=== PATIENT | male | born 1950 | race Caucasian/White ===

== ENCOUNTER 2019-12-24 21:47 | Inpatient (IN) | payer MEDICARE, OTHER ==
[~2019-12-24] VITALS: Ht 188 cm; Wt 96.6 kg
[~2019-12-24 21:47] MED LIST: AMLO10 PO; ASPI81CH PO; ATOR10 PO; BETA.1TL; CALCIUM CARBONATE; CLOP75 PO; COMBIVENT RESPIM4 GM INH; DIAZ2 PO; DILT300; DIPASPER PO; DOCU100 PO; ENAL20 PO; FISH1000 PO; FLUO10 PO; GLIP10; GLIP5 PO; HYDCHL25 PO; HYDCHL50; HYDCHL50 PO; INSLI100I SC; INSN100I; INSULANPEN SQ; LAMI150; LAMIVUDINE PO; LAVAP17G; MAGGLU250; MECL25 PO; METF500C PO; METF850; METO10 PO; METO50; METO50ER PO; MORP30; MORP30 PO; NITR.6SL PO; OXYB5 PO; OXYC5; OXYC5 PO; Omeprazole20 M1 PO; POTA8; POTCHL20ER PO; RAMI5; SAXA2.5T PO; SENN187 PO; SIMV10 PO; SIMV20 PO; TAMS.4ER PO; TRAZ50; [UNRECOGNIZED DRUG - CODE] PO; [UNRECOGNIZED DRUG - CODE] PO
[2019-12-24 22:13] LABS: BASOPHILS ABSOLUTE AUTO 0.08 K/mm3 (0.00-0.23); BASOPHILS PERCENT AUTO 1 % (0-2); EOSINOPHILS ABSOLUTE AUTO 0.17 K/mm3 (0.00-0.68); EOSINOPHILS PERCENT AUTO 1 % (0-6); Hematocrit 39.3 % (37.0-53.0); Hemoglobin 12.4 g/dL (13.5-17.5); IMMATURE GRAN ABSOLUTE AUTO 0.06 K/mm3 (0.00-0.10); IMMATURE GRAN PERCENT AUTO 0 % (0-1); LYMPHOCYTES ABSOLUTE AUTO 1.71 K/mm3 (0.84-5.20); LYMPHOCYTES PERCENT AUTO 11 % (21-46); MONOCYTES PERCENT AUTO 9 % (4-13); Mean Corpuscular HGB 26.7 pg (26.0-34.0); Mean Corpuscular HGB Conc 31.6 g/dL (31.5-36.5); Mean Corpuscular Volume 85 fL (80-100); Mean Platelet Volume 10.9 fL (9.1-12.4); NEUTROPHILS ABSOLUTE AUTO 11.66 K/mm3 (1.96-9.15); NEUTROPHILS PERCENT AUTO 77 % (41-73); Platelet Count 251 K/mm3 (150-400); RDW Coefficient Variation 14.6 % (11.7-14.2); RDW Standard Deviation 45.2 fL (35.1-46.3); Red Blood Cell Count 4.65 M/mm3 (4.30-5.90); White Blood Cell Count 15.08 K/mm3 (4.00-11.30)
[2019-12-24 22:30] LABS: Alanine Aminotransfer (ALT/SGP 48 U/L (12-78); Albumin, Blood 2.8 g/dL (3.4-5.0); Albumin/Globulin Ratio 0.7 (0.8-1.8); Alk Phos 90 U/L (50-136); Anion Gap 5 mmol/L (6-16); Aspartate Aminotrans (AST/SGOT 14 U/L (12-37); Bilirubin, Total 0.3 mg/dL (0.1-1.0); Blood Urea Nitrogen 21 mg/dL (8-24); Bun/Creatinine Ratio 27.1 (12.0-20.0); CO2, Blood 33 mmol/L (21-32); Calcium, Blood 8.8 mg/dL (8.5-10.1); Chloride, Blood 99 mmol/L (98-108); Creatinine, Blood 0.78 mg/dL (0.60-1.20); Glomerular Filtration Rate >60 (60-); Glucose, Blood 281 mg/dL (70-99); Potassium, Blood 3.9 mmol/L (3.5-5.5); Sodium, Blood 137 mmol/L (136-145); Total Protein, Blood 6.8 g/dL (6.4-8.2); Troponin I 0.044 ng/mL (0.000-0.040)
[2019-12-24] MEDS ORDERED: ALOGLIPTIN25 MG PO (23:33)
[2019-12-24] MEDS ORDERED: BUDE10.22 INH (23:34)
[2019-12-24] MEDS ORDERED: [UNRECOGNIZED DRUG - OTHER] TOP (23:35)
[2019-12-24] MEDS ORDERED: DOC250 PO (23:36)
[2019-12-25 07:01] LABS: Adenovirus Not Detected (NOT DETECT); Bordetella pertussis Not Detected (NOT DETECT); Chlamydophila pneumoniae Not Detected (NOT DETECT); Coronavirus 229E Not Detected (NOT DETECT); Coronavirus HKU1 Not Detected (NOT DETECT); Coronavirus NL63 Not Detected (NOT DETECT); Coronavirus OC43 Not Detected (NOT DETECT); Human Metapneumovirus Not Detected (NOT DETECT); Human Rhinovirus/Enterovirus Not Detected (NOT DETECT); Influenza A Not Detected (NOT DETECT); Influenza A/2009-H1 Not Detected (NOT DETECT); Influenza A/H1 Not Detected (NOT DETECT); Influenza A/H3 Not Detected (NOT DETECT); Influenza B Not Detected (NOT DETECT); Mycoplasma pneumoniae Not Detected (NOT DETECT); Parainfluenza Virus 1 Not Detected (NOT DETECT); Parainfluenza Virus 2 Not Detected (NOT DETECT); Parainfluenza Virus 3 Not Detected (NOT DETECT); Parainfluenza Virus 4 Not Detected (NOT DETECT); Respiratory Syncytial Virus Not Detected (NOT DETECT)
--- NOTE | 2019-12-25 07:20 | NUR ---
[facility] SHIFT SUMMARY PT ADMITTED THIS NIGHT FOR CP WITH TROP OF 0.044. HE IS AAOX4, RESP E/U, VSS, DENIES DISCOMFROT OR PAIN. ON TELE SR RATE 74 ON LAST CHECK. COMES TO ROOM WITH HIM AND IS HELPFUL WITH HISTORY. HAS HOME CPAP WITH HIM AND USES 3.5 O2 BLEED AT [facility]. RA DUR DAY. ON CONT PULSE OX AND SATS ABOVE 90. PT HAS HAD NO COMPLAINTS OF PAIN OR DISCOMFORT SINCE ARRIVAL. HE IS PLEASANT AND COOPERATIVE. REPORT TO ONCOMING RN.
[2019-12-25] MEDS ORDERED: Excedrin Extra1 EACH PO (10:04)
--- NOTE | 2019-12-25 17:53 | NUR ---
SHIFT SUMMARY PT INDEPENDENT IN ROOM. S.O. AT BEDSIDE MOST OF DAY. BROUGHT IN HIS MEDS FROM HOME AND SENT TO PHARMACY FOR VERIFICATION. OXYCODONE GIVEN FOR BACK PAIN. DR. MARIO IN TO SEE PT WITH ORDERS TO BE NPO AFTER MIDNOC FOR ANGIOGRAM IN A.M. NO CHEST PAIN THROUGHOUT DAY.
--- NOTE | 2019-12-25 17:57 | NUR ---
PT CONSENT FOR STUDENT NURSE TO TREAT @1500 FOR THE EVENING.
--- NOTE | 2019-12-26 05:02 | NUR ---
WILD LIFE PHOTOGRAPHER SUMMARY PT A/O X4. DENIES CHEST PAIN, SOB, NAUSEA. PT HAS BEEN HAVING PAIN IN LOWER BACK AND LEGS WHICH IS CHRONIC. MEDICATED ONCE THIS SHIFT FOR PAIN. I OFFERED PT A HEATING PAD TO WHICH PT REFUSED. REPOSITIONING HAS HELPED SOME. PT TOOK A SHOWER LAST NIGHT. SLEPT A DECENT AMOUNT OVER THE NIGHT. VSS, CALL PARKER WITHIN REACH. BEEN NPO SINCE MIDNIGHT FOR PROCEDURE IN AM.
[2019-12-26 05:47] LABS: Hematocrit 36.6 % (37.0-53.0); Hemoglobin 11.6 g/dL (13.5-17.5); Mean Corpuscular HGB 26.5 pg (26.0-34.0); Mean Corpuscular HGB Conc 31.7 g/dL (31.5-36.5); Mean Corpuscular Volume 84 fL (80-100); Mean Platelet Volume 11.4 fL (9.1-12.4); Platelet Count 223 K/mm3 (150-400); RDW Coefficient Variation 14.7 % (11.7-14.2); RDW Standard Deviation 44.7 fL (35.1-46.3); Red Blood Cell Count 4.37 M/mm3 (4.30-5.90); White Blood Cell Count 15.96 K/mm3 (4.00-11.30)
[2019-12-26 06:10] LABS: Albumin, Blood 2.6 g/dL (3.4-5.0); Anion Gap 5 mmol/L (6-16); Blood Urea Nitrogen 39 mg/dL (8-24); Bun/Creatinine Ratio 42.9 (12.0-20.0); CHOL/HDL RATIO 5.6; CO2, Blood 32 mmol/L (21-32); Calcium, Blood 8.7 mg/dL (8.5-10.1); Chloride, Blood 101 mmol/L (98-108); Cholesterol 135 mg/dL (50-200); Creatinine, Blood 0.91 mg/dL (0.60-1.20); Glomerular Filtration Rate >60 (60-); Glucose, Blood 195 mg/dL (70-99); HDL Cholesterol 24 mg/dL (>39); LDL/HDL RATIO 3.2; Low Density Lipoprotein Chol 76 mg/dL (0-110); Phosphorus, Blood 4.1 mg/dL (2.5-4.9); Sodium, Blood 138 mmol/L (136-145); Triglycerides 176 mg/dL (30-160); Troponin I 0.065 ng/mL (0.000-0.040); Very Low Density Lipoprot Chol 35 mg/dL (6-32)
--- NOTE | 2019-12-26 06:22 | NUR ---
INCIDENT MANAGER REPORT PT ARRIVED TO UNIT VIA WHEELCHAIR FROM ER AT 2109. PT A/O X4. STANDBY ASSIST TO BATHROOM. PT DENIED PAIN, NAUSEA, SOB. HE WAS ORIENTED TO STAFF AND ROOM. PT HAS AN OPEN WOUND ON HIS RIGHT FOOT NEXT TO HIS BIG TOE. HE SEES THE WOUND CLINIC FOR THIS. HE HAD A GAUZE DRESSING OVER THE AREA. WHEN I TOOK A PICTURE OF IT, PT REQUESTED TO HAVE IT CHANGED. MEPLIEX APPLIED TO WOUND. REFER TO CHART FOR PICTURES. EDEMA IN BLE. DR. ALEXANDER SAW PT THIS MORNING AT 0515. ORDER TO BLADDER SCAN PT. BLADDER SCAN OF 0ML, THIS WAS DONE TWICE. PT HAD JUST VOIDED 200 ML PRIOR TO BLADDER SCAN. PT HAS NO PHYCHIATRIC HX OTHER THAN ANXIETY HERE AND THERE. STAFF AND MYSELF HAVE NOTICED PT TALKS TO HIMSELF IN A VERY HARSH MANNER. HE HAS A FULL ON CONVERSTION WITH HIMSELF AND SOME EXAMPLES ARE "WHY AM I RECIEVING LASIX WHEN THEY DON'T WORK" "WHY DID I GET INTO THE HOSPITAL AGAIN" "JUST BE A GOOD PAITENT" HE'S SAYING THESE IF THERE WAS ANOTHER PERSON IN HIS ROOM. EACH TIME STAFF IS OUT OF THE ROOM, HE SEEMS LIKE HE HAS UNPLEASANT CONVERSATIONS WITH HIMSELF AND PUTTING HIMSELF DOWN. I ASKED IF HE HAD ANY PLANS TO HURT HIMSELF. HE DENIES HAVING THOUGHT OF HURTING HIMSELF AND OTHER PEOPLE AND HE DENIED EVER HAVING THOUGHTS OF THIS. I NOTIFIED SHELL FITCH RN WELL NURSING MECHANICAL ENGINEERING PROFESSOR, JOSY MASON. JOSY TALKED TO THE PT WHO IS WELL AWARE HE TALKS TO HIMSELF.
--- NOTE | 2019-12-26 13:19 | NUR ---
PT ARRIVED TO PCU 2 VIA WHEELCHAIR, REPORT WAS GIVEN BY KELSEY COBOS, FAMILY AT BEDSIDE, V.S. STABLE, TR BAND IS CLEAR, NO INTERVENTION WAS DONE, CALL LIGHT IN REACH, MAY NEED BYPASS.
--- NOTE | 2019-12-26 18:33 | NUR ---
PT HAS TR BAND OFF WITH ARM BOARD IN PLACE. NO BLEEDING AT ALL. SITE IS CLEAR, PT IS BEING COBRA TRANSFERED TO [facility], CALLED REPORT TO JAVID, HE IS LEAVING AT THIS TIME VIA [employer], FAMILY HAS HIS BELONGINGS.
== END 2019-12-26 18:30 | disposition short-term general hospital (02) | DRG 286 ==
LOC: ER 21:47 → MEDS 21:48 → PCU 12-26 13:25
PROVIDERS: Emergency Medicine; Internal Medicine; ADMIT Family Medicine
PROC: B2111ZZ Fluoroscopy of Multiple Coronary Arteries using Low Osmolar Contrast (ICD-10-PCS; principal; 2019-12-26)
DX: I11.0 Hypertensive heart disease with heart failure (principal); J96.01 Acute respiratory failure with hypoxia; I50.21 Acute systolic (congestive) heart failure; T82.855A Stenosis of coronary artery stent, initial encounter; Z99.81 Dependence on supplemental oxygen; I25.2 Old myocardial infarction; Z79.82 Long term (current) use of aspirin; Z79.84 Long term (current) use of oral hypoglycemic drugs; I25.10 Atherosclerotic heart disease of native coronary artery without angina pectoris; E11.40 Type 2 diabetes mellitus with diabetic neuropathy, unspecified; G47.33 Obstructive sleep apnea (adult) (pediatric); E78.5 Hyperlipidemia, unspecified; N40.0 Benign prostatic hyperplasia without lower urinary tract symptoms; Z88.8 Allergy status to other drugs, medicaments and biological substances; Z87.891 Personal history of nicotine dependence
CPT/HCPCS: 0099U; 36415; 70450; 71046; 80053; 80061; 80069; 82947; 83036; 83690; 83880; 84484; 85025; 85027; 85347; 85730; 93005; 93010; 93306; 93458; 94640; 94760; 94762; 96372; 96374; 96375; 96376; 99152; 99153; 99285-25; A9270; C1769; C1894; G0378; J0360; J1100; J1200; J1644; J1650; J1720; J1940; J2250; J2930; J3010; J7030; Q9967

== ENCOUNTER 2021-02-14 13:06 | Inpatient (IN) | payer OTHER, MEDICARE ==
[~2021-02-14] VITALS: Ht 182.9 cm; Wt 117.0 kg
[~2021-02-14 13:06] MED LIST changes: +ALOGLIPTIN25 MG PO; -ATOR10 PO; -COMBIVENT RESPIM4 GM INH; -ENAL20 PO; -GLIP5 PO; -METF500C PO; -METO50ER PO; -OXYC5 PO; -Omeprazole20 M1 PO; -TAMS.4ER PO; +[UNRECOGNIZED DRUG - OTHER] TOP
[2021-02-14 13:29] LABS: BASOPHILS ABSOLUTE AUTO 0.12 K/mm3 (0.00-0.23); BASOPHILS PERCENT AUTO 1 % (0-2); EOSINOPHILS ABSOLUTE AUTO 0.24 K/mm3 (0.00-0.68); EOSINOPHILS PERCENT AUTO 2 % (0-6); Hematocrit 41.4 % (37.0-53.0); IMMATURE GRAN ABSOLUTE AUTO 0.12 K/mm3 (0.00-0.10); IMMATURE GRAN PERCENT AUTO 1 % (0-1); LYMPHOCYTES ABSOLUTE AUTO 2.42 K/mm3 (0.84-5.20); LYMPHOCYTES PERCENT AUTO 18 % (21-46); MONOCYTES ABSOLUTE AUTO 0.86 K/mm3 (0.16-1.47); MONOCYTES PERCENT AUTO 7 % (4-13); Mean Corpuscular HGB 22.7 pg (26.0-34.0); Mean Corpuscular Volume 78 fL (80-100); Mean Platelet Volume 10.7 fL (9.1-12.4); NEUTROPHILS ABSOLUTE AUTO 9.36 K/mm3 (1.96-9.15); NEUTROPHILS PERCENT AUTO 71 % (41-73); Platelet Count 355 K/mm3 (150-400); RDW Coefficient Variation 19.3 % (11.7-14.2); RDW Standard Deviation 53.1 fL (35.1-46.3); Red Blood Cell Count 5.29 M/mm3 (4.30-5.90); White Blood Cell Count 13.12 K/mm3 (4.00-11.30)
[2021-02-14 13:44] LABS: PO2 Arterial 368 mmHg (80-100)
[2021-02-14 13:45] LABS: Alanine Aminotransfer (ALT/SGP 47 U/L (12-78); Albumin, Blood 2.6 g/dL (3.4-5.0); Albumin/Globulin Ratio 0.6 (0.8-1.8); Alk Phos 81 U/L (50-136); Anion Gap 5 mmol/L (6-16); Aspartate Aminotrans (AST/SGOT 36 U/L (12-37); Bilirubin, Total 0.2 mg/dL (0.1-1.0); Blood Urea Nitrogen 24 mg/dL (8-24); Bun/Creatinine Ratio 27.2 (12.0-20.0); CO2, Blood 31 mmol/L (21-32); Calcium, Blood 8.2 mg/dL (8.5-10.1); Chloride, Blood 104 mmol/L (98-108); Creatinine, Blood 0.88 mg/dL (0.60-1.20); Globulin, Blood 4.5 g/dL (2.2-4.0); Glomerular Filtration Rate >60 (60-); Glucose, Blood 311 mg/dL (70-99); Potassium, Blood 4.3 mmol/L (3.5-5.5); Sodium, Blood 140 mmol/L (136-145); Total Protein, Blood 7.1 g/dL (6.4-8.2); Troponin I 0.032 ng/mL (0.000-0.040)
--- NOTE | 2021-02-14 13:51 | NUR ---
Patient's son, Liang, is ER consult and is going through many emotions and sweating significantly. Liang has trouble staying focused and is repeating himself often. He states that he is homeless and living in his car and also talks about his family unit complications. He talks about wanting to reach a neon sign installer at a yarsanism that he has not been to in quite sometime. He is hoping that neon sign installer will help him with housing and also come to the hospital and pray for his dad. I normalize patient's struggle to deal with his father's medical situation and provide pastoral drapery counselor and prayer. Liang responds well and shows signs of reduced stress. I will continue to remain available to patient and family.
[2021-02-14] MEDS ORDERED: AMLO10 PO (13:56)
[2021-02-14] MEDS ORDERED: COMBIVENT RESPIM4 G1 INH (13:57)
[2021-02-14] MEDS ORDERED: ALPROSTADIL 20 MCG XX (13:58)
[2021-02-14] MEDS ORDERED: SYMBICORT 80-10.2 GM INH (13:59)
[2021-02-14] MEDS ORDERED: ATOR40TA PO (13:59)
[2021-02-14] MEDS ORDERED: ASPIR 8181 M1 PO (14:00)
[2021-02-14] MEDS ORDERED: DOC250 PO (14:01)
[2021-02-14] MEDS ORDERED: CLOP75 PO (14:01)
[2021-02-14] MEDS ORDERED: CALCIPOTRIENE60 G1 TOP (14:02)
[2021-02-14] MEDS ORDERED: Enalapril Malea20 MG PO (14:03)
[2021-02-14] MEDS ORDERED: GLIP10 PO (14:04)
[2021-02-14] MEDS ORDERED: BASAGLAR K100 UNIT/1 SC (14:05)
[2021-02-14] MEDS ORDERED: METO50ER PO (14:06)
[2021-02-14] MEDS ORDERED: Omeprazole20 M1 PO (14:07)
[2021-02-14] MEDS ORDERED: GLUCOPHAGE1000 M1 PO (14:07)
[2021-02-14] MEDS ORDERED: OXYC5 PO (14:08)
[2021-02-14] MEDS ORDERED: TAMS.4ER PO (14:09)
[2021-02-14 14:10] LABS: Calcium, Ionized (POC) 1.03 mmol/L (1.10-1.46); Chloride (POC) 97 mmol/L (98-108); Glucose (ISTAT POC) 325 mg/dL (70-99); Hemoglobin (POC) 14.6 g/dL (13.5-17.5); Potassium (POC) 4.3 mmol/L (3.5-5.5); Sodium (POC) 140 mmol/L (135-148); Total CO2 (POC) 35 mmol/L (21-32)
[2021-02-14] MEDS ORDERED: VEMLIDY25 MG PO (14:10)
[2021-02-14] MEDS ORDERED: LATA.005SO BOTHEYES (14:11)
[2021-02-14 14:13] LABS: Influenza A, PCR NEGATIVE (NEGATIVE); Influenza B, PCR NEGATIVE (NEGATIVE); Resp Syncytial Virus, PCR NEGATIVE (NEGATIVE); SARS-Cov-2 (COVID-19) PCR, MMC NEGATIVE (NEGATIVE)
[2021-02-14] MEDS ORDERED: NICODERM CQ1 EAC1 TD (14:14)
[2021-02-14] MEDS ORDERED: Fluocinonide15 GM TOP (14:17)
[2021-02-14] MEDS ORDERED: Glucagon Emergen1 MG IM (14:18)
[2021-02-14] MEDS ORDERED: GLUCOSE4 GM PO (14:19)
[2021-02-14 14:33] LABS: Source, Urine Catheter
[2021-02-14 14:58] LABS: Appearance, Urine Hazy (Clear); Bilirubin, Urine Neg (Neg); Blood, Urine 3+ (Neg); Color, Urine Yellow (P-Yellow); Glucose Qualitative, Urine 4+ (Neg); Ketones, Urine Neg (Neg); Leukocyte Esterase, Urine Neg (Neg); Nitrite, Urine Neg (Neg); Protein, Urine 4+ (Neg); Urobilinogen, Urine NORM (Normal)
[2021-02-14 15:07] LABS: Bacteria Many /hpf; Squamous Epithelial Cells Few /hpf (Few)
--- NOTE | 2021-02-14 16:30 | NUR ---
INITIAL ASSESSMENT PATIENT ARRIVED TO ICU FROM ER AT 1550. PATIENT INTUBATED AND ON SOME SEDATION. PATIENT ANXIOUS BUT ABLE TO FOLLOW SOME SIMPLE COMMANDS. SEDATION INCREASED FOR PATIENT COMFORT. PATIENT AFEBRILE. PATIENT ABLE TO MOVE ALL EXTREMITIES. LUNG SOUNDS COARSE THROUGHOUT. PATIENT ON VENT SETTINGS OF AC 20, TV 550, PEEP 5 AND 40% FIO2. THICK, SINGH SECRETIONS BEING SUCTIONED FROM ETT. PATIENT IN SR, HR 60S TO 70S. SBP 80S TO 120S. DATE OF LAST BM UNKNOWN. PATIENT NPO. OG TO LIS. BOWEL SOUNDS HYPOACTIVE. TEMP PICHARDO IN PLACE DRAINING YELLOW COLORED URINE. TIP OF L POINTER FINGER MISSING. SCATTERED TATTOOS AND SCARS NOTED T/O BODY. FACE FLUSHED. PATIENT APPEARS COMFORTABLE AT THIS TIME. BED LOW, CALL LIGHT IN REACH. SON AT BEDSIDE. WILL CONTINUE TO MONITOR PATIENT FREQUENTLY THROUGHOUT SHIFT.
[2021-02-14 17:34] LABS: U Amphetamine Screen Not Detected; U Barbituate Screen Not Detected; U Benzodiazapine Screen Not Detected; U Buprenorphine Screen Not Detected; U Cannabinoids Screen Not Detected; U Cocaine Screen Not Detected; U Methadone Screen Not Detected; U Methamphetamine Screen Not Detected; U Opiates Screen Not Detected; U Oxycodone Screen DETECTED; U Phencyclidine Screen Not Detected; U Propoxyphene Screen Not Detected
[2021-02-14 17:41] LABS: PCO2 Arterial 45.7 mmHg (35-45); PO2 Arterial 72.6 mmHg (80-100); pH Blood Arterial 7.43 (7.35-7.45)
--- NOTE | 2021-02-14 19:20 | NUR ---
SHIFT SUMMARY PATIENT REMAINED AFEBRILE. PATIENT REMAINED RESTING WELL ON PROPOFOL AT 25 MCG/ KG/ MINUTE. AC DECREASED DOWN FROM 20 TO 16. VITAL SIGNS REMAINED STABLE. NO BM THIS SHIFT. 90 MLS OF YELLOW COLORED URINE OUT FROM PICHARDO. NS AT 75 MLS/ HOUR. BLOOD SUGAR OF 161. NO OTHER ACUTE CHANGES SINCE INITIAL SHIFT ASSESSMENT. PATIENT APPEARS COMFORTABLE AT THIS TIME. REPORT HAS BEEN GIVEN TO ASSUMING RN HYPERBARIC NURSE.
--- NOTE | 2021-02-14 19:40 | NUR ---
ASSUMPTION OF CARE RECEIVED REPORT FROM MIREYA COBOS AT 1910. ASSUMED CARE OF PATIENT. PATIENT INTUBATED AND SEDATED. VENT SETTINGS AC 16/550/5/35%, SATS ABOVE 95%. LUNGS SOUNDS DIMINISHED THROUGHOUT, NO SECRETIONS AT THIS TIME. PROPOFOL AT 25MCG/KG WITH SAS OF 3. NS AT 75ML/HR, INFUSING VIA PERIPHERAL IV IN RUE. PICHARDO CATHETER PATENT AND DRAINING CLEAR, YELLOW URINE. OG TO LIS WITH LIGHT GREEN DRAINAGE. WILL REVIEW ORDERS AND TREAT PRESCRIBED.
--- NOTE | 2021-02-15 | NUR ---
REASSESSMENT NO CHANGES FROM PREVIOUS ASSESSMENT. VENT SETTINGS UNCHANGES WITH FIO2 AT 35% AND SATS ABOVE 95%. VITALS REMAIN STABLE. PROPOFOL INCREASED TO 30MCG/KG DURING BATH FOR AGITATION. CBG RESULTED AT 54, DEXTROSE GIVEN. WILL MONITOR AND RE-CHECK. URINE OUTPUT AT 30CC/HR, CLEAR AND LEONA IN COLOR. IVF INFUSING ORDERED.
--- NOTE | 2021-02-15 01:25 | NUR ---
URINE OUTPUT REPORTED URINE OUTPUT OF 20CC/HR TO DR. ANTONY. NO NEW ORDERS, WILL CONTINUE TO MONITOR, IVF CONTINUES AT 75ML/HR. WILL REVIEW AM LABS AND RENAL FUNCTION IN AM.
[2021-02-15 03:40] LABS: BASOPHILS ABSOLUTE AUTO 0.06 K/mm3 (0.00-0.23); BASOPHILS PERCENT AUTO 1 % (0-2); EOSINOPHILS ABSOLUTE AUTO 0.16 K/mm3 (0.00-0.68); EOSINOPHILS PERCENT AUTO 1 % (0-6); Hematocrit 32.6 % (37.0-53.0); Hemoglobin 9.8 g/dL (13.5-17.5); IMMATURE GRAN ABSOLUTE AUTO 0.03 K/mm3 (0.00-0.10); IMMATURE GRAN PERCENT AUTO 0 % (0-1); LYMPHOCYTES ABSOLUTE AUTO 1.68 K/mm3 (0.84-5.20); LYMPHOCYTES PERCENT AUTO 15 % (21-46); MONOCYTES ABSOLUTE AUTO 1.22 K/mm3 (0.16-1.47); MONOCYTES PERCENT AUTO 11 % (4-13); Mean Corpuscular HGB 22.9 pg (26.0-34.0); Mean Corpuscular HGB Conc 30.1 g/dL (31.5-36.5); Mean Corpuscular Volume 76 fL (80-100); Mean Platelet Volume 11.1 fL (9.1-12.4); NEUTROPHILS ABSOLUTE AUTO 8.36 K/mm3 (1.96-9.15); NEUTROPHILS PERCENT AUTO 73 % (41-73); Platelet Count 242 K/mm3 (150-400); RDW Standard Deviation 51.3 fL (35.1-46.3); Red Blood Cell Count 4.28 M/mm3 (4.30-5.90); White Blood Cell Count 11.51 K/mm3 (4.00-11.30)
--- NOTE | 2021-02-15 04:00 | NUR ---
REASSESSMENT NO ACUTE CHANGES FROM PREVIOUS ASSESSMENT. VENT SETTINGS UNCHANGES. SAS 3 ON PROPOFOL 35MCG/KG. URINE OUTPUT REMAINS LESS THAN 30CC/HR, LABS REVIEWED. IVF AT 75ML/HR CONTINUES. VITALS STABLE. WILL MONITOR.
[2021-02-15 04:14] LABS: Alanine Aminotransfer (ALT/SGP 35 U/L (12-78); Albumin/Globulin Ratio 0.6 (0.8-1.8); Alk Phos 53 U/L (50-136); Anion Gap 3 mmol/L (6-16); Aspartate Aminotrans (AST/SGOT 24 U/L (12-37); Bilirubin, Total 0.3 mg/dL (0.1-1.0); Blood Urea Nitrogen 31 mg/dL (8-24); Bun/Creatinine Ratio 27.9 (12.0-20.0); CO2, Blood 32 mmol/L (21-32); Calcium, Blood 7.7 mg/dL (8.5-10.1); Chloride, Blood 108 mmol/L (98-108); Creatinine, Blood 1.11 mg/dL (0.60-1.20); Globulin, Blood 3.3 g/dL (2.2-4.0); Glomerular Filtration Rate >60 (60-); Glucose, Blood 81 mg/dL (70-99); Potassium, Blood 3.8 mmol/L (3.5-5.5); Sodium, Blood 143 mmol/L (136-145); Total Protein, Blood 5.3 g/dL (6.4-8.2)
--- NOTE | 2021-02-15 06:25 | NUR ---
SHIFT SUMMARY CRITICAL LABS REPORTED TO DR. JONES CHARTED. CBG OF 54 DOCUMENTED AND TREATED. GLUCOSE CURRENTLY IN 80'S. TOLERATED WEAN WELL, CURRENTLY ON SPONTANEOUS WITH FIO2 30%. PROPOFOL INCREASED TO 30MCG/KG, PATIENT AWAKE AND STATING HE IS UNCOMFORTABLE BUT TOLERATING VENT WITH NO AGITATION. URINE OUTPUT REMAINS 20CC/HR. FLUIDS REMAIN AT 75ML/HR. VITALS STABLE. WILL CONTINUE TO MONITOR AND REPORT TO ONCOMING RN.
--- NOTE | 2021-02-15 11:09 | NUR ---
ECHOCARDIOGRAM COMPLETE
--- NOTE | 2021-02-15 11:56 | NUR ---
AM NOTE... ASSUMED CARE OF PT AT 0700, PT IS INTUBATED AND ON PROPOFOL AT 25MCG/MIN, PT WAKES TO VERBAL STIMULI AND IS CALM AND COOPERATIVE BUT BECOMES ANXIOUS IF THE PROPOFOL IS TURNED DOWN OR HE STARTS TO COUGH. PT IS ON SPONTAINOUS SETTINGS AT 7/5 AND 35% WITH O2 SATS >90%. PT'S L/S DIM AND CLEAR T/O. PT IS IN NSR IN THE 60'S-70'S, BP STABLE. PT HAS TRACE EDEMA NOTED TO HIS BLE AND BUE. BT PRESENT AND HYPOACTIVE, ABD IS SOFT AND NONTENDER TO PALP. PICHARDO IS PATENT AND DRAINING TO GRAVITY. AT 0945 DR. FLAHERTY IS AT THE BEDSIDE TO ASSESS THE PT, VERBAL ORDER GIVEN BY DR. FLAHERTY TO EXTUBATE THE PT. RT JOLLEY WAS CALLED AND THE PT WAS EXTUBATED AT 1003, PT WAS PLACED ON 3L NC WHICH IS HIS BASELINE PER HIS H&P. PT'S FAMILY HAD CALLED AND UPDATED BY ICU STAFF. CALL LIGHT IN REACH WILL CONTINUE TO MONITOR.
--- NOTE | 2021-02-15 15:36 | NUR ---
[facility] Care visit: Son, Liang, just arrived for a visit. He expressed anxiety and fears of even visiting a hospital. He is diaphoretic, asks for water and states he cannot stay long. I introduced myself to Liang and James. James is calm but looks uncomfortable and is speaking with a hoarse, whispering voice after extubation this am. Pt reports mod to severe chronic back pain but not experiencing "worse than normal" pain at this time. Pt is being medicated for pain regularly per eMAR and he states this has given him some relief of pain. RN and I repositioned pt and he did grimace and cry out with change of position and a pillow placed in an area that was extremely uncomfortable for him. Pillow adjusted/removed for and pt repositioned until comfort achieved. Pt is alert and oriented. He would like his catheter removed and seems very capable of using a urinal. He reports he is not incontinent at baseline. RN to discuss d/c of gage with . After getting pt settled, discussed code status with his permission. I asked pt to consider what his wishes are and we would review tomorrow. He is unsure about both intubation and CPR in the future. Pt has multiple chronic condiditions that may make a rescusitative effort less likely to be successful long term care social worker. Pt lives alone. His son states that he lives in a car but that he will be available to help his dad if needed after discharge. Son plans to visit daily but is only able to stay for approx 10 minutes each time due to his own anxiety. Pt assisted with getting sips of water. He is doing that mostly independently if he can reach the water cup and if HOB is elevated enough. He verbalized appreciation for the visit and is agreeable to discuss advanced care planning further tomorrow.
--- NOTE | 2021-02-15 18:34 | NUR ---
SHIFT SUMMARY... PT CONTINUES TO BE HYPERTENSIVE, DR. FLAHERTY IS AWARE, PT TAKES ENALAPRIL AT HOME WHICH IS NOT SOMETHING THE PHARMACY HAS ON HAND, PT'S FAMILY IS TO BRING IT IN TOMORROW WITH HIS CPAP MACHINE. PT'S PICHARDO WAS D/C'D WNL, PT HAS BEEN C/O OF "BURNING" PAIN WITH URINATION. URO-JET IS ORDERED FOR PRN USE IF PT REQUESTS IT. PT CONTINUES TO BE ON 4L NC WITH O2 SATS>90%. PT HAS BEEN DOING WELL WITH PO INTAKE, PT IS TO START WITH FULL LIQUID DIET AND ADVANCE TOLERATED. PT HAS BEEN MEDICATED FOR PAIN PER EMAR WITH GOOD RESULTS. PT HAS ALSO BEEN MEDICATED FOR HEADAHCES WITH EXCEDRINE WITH GOOD RESULTS. PT IS ABLE TO SHIFT HIS HIPS HIMSELF IN BED, PT NEEDS HELP WITH BEEING PULLED UP IN THE BED BUT IS ABLE TO SHIFT HIS WEIGHT FROM SIDE TO SIDE SEVERAL TIMES PER HOUR. CALL LIGHT IN REACH WILL CONTINUE TO MONITOR UNTIL REPORT IS GIVEN TO ONCOMING RN.
--- NOTE | 2021-02-15 19:32 | NUR ---
ASSUMPTION OF CARE RECEIVED REPORT FROM RADHA COBOS. ASSUMED CARE OF PATIENT. PATIENT SITTING UP IN BED, USING CELL PHONE. A/O, 4L [address] IV SL. USING URINAL INDEPENDENTLY. HYPERTENSIVE. MEDICATED ORDERED. WILL REVIEW ORDERS AND TREAT PRESCRIBED.
--- NOTE | 2021-02-15 21:00 | NUR ---
HOME MEDICATIONS AND CPAP PATIENT'S FAMILY MEMBER BROUGHT IN PATIENT'S HOME MEDICATIONS AND CPAP REQUESTED BY DAY SHIFT RN. CPAP VERIFIED BY RT FOR PATIENT'S USE. VASOTEC THAT WAS ORIGINALLY REQUESTED WAS PROVIDED BY PHARMACY AND WE DID NOT REQUIRE PATIENT'S HOME MEDICATION. WILL SECURE MEDICATIONS WITH PHARMACY UNTIL FAMILY CAN TAKE THEM HOME.
--- NOTE | 2021-02-16 | NUR ---
REASSESSMENT NO ACUTE CHANGES FROM PREVIOUS ASSESSMENT. PATIENT UTILIZING HOME CPAP VERIFIED BY RT WITH 5L 02 BLEED IN. 02 SATS ARE AT 90-93%. MEDICATED FOR PAIN AND HYPERTENSION CHARTED. PATIENT CONTINUES TO USE THE URINAL INDEPENDENTLY. WILL CONTINUE TO MONITOR, CALL LIGHT IN REACH.
--- NOTE | 2021-02-16 02:34 | NUR ---
REPORT REPORT GIVEN TO KELLY COBOS.
[2021-02-16 03:36] LABS: BASOPHILS ABSOLUTE AUTO 0.08 K/mm3 (0.00-0.23); BASOPHILS PERCENT AUTO 1 % (0-2); EOSINOPHILS ABSOLUTE AUTO 0.07 K/mm3 (0.00-0.68); EOSINOPHILS PERCENT AUTO 1 % (0-6); Hematocrit 38.7 % (37.0-53.0); Hemoglobin 11.8 g/dL (13.5-17.5); IMMATURE GRAN ABSOLUTE AUTO 0.04 K/mm3 (0.00-0.10); IMMATURE GRAN PERCENT AUTO 0 % (0-1); LYMPHOCYTES PERCENT AUTO 9 % (21-46); MONOCYTES ABSOLUTE AUTO 1.45 K/mm3 (0.16-1.47); MONOCYTES PERCENT AUTO 11 % (4-13); Mean Corpuscular HGB 22.8 pg (26.0-34.0); Mean Corpuscular HGB Conc 30.5 g/dL (31.5-36.5); Mean Corpuscular Volume 75 fL (80-100); Mean Platelet Volume 10.8 fL (9.1-12.4); NEUTROPHILS ABSOLUTE AUTO 10.12 K/mm3 (1.96-9.15); NEUTROPHILS PERCENT AUTO 78 % (41-73); Platelet Count 305 K/mm3 (150-400); RDW Coefficient Variation 19.6 % (11.7-14.2); RDW Standard Deviation 50.7 fL (35.1-46.3); Red Blood Cell Count 5.17 M/mm3 (4.30-5.90); White Blood Cell Count 12.96 K/mm3 (4.00-11.30)
--- NOTE | 2021-02-16 03:46 | NUR ---
PT BP REMAINS ELEVATED AFTER GIVING HYDRALAZINE, FENTANYL, TYLENOL, AND EXCEDRIN. NOTIFIED GROUND WIRER, WILL CONTINUE TO MONITOR AT THIS TIME, AND RE-EVALUATE FREQUENTLY. PAIN/HEADACHE IS PT BIGGEST COMPLAINTS AT THIS TIME.
[2021-02-16 03:52] LABS: Albumin, Blood 2.4 g/dL (3.4-5.0); Anion Gap 6 mmol/L (6-16); Blood Urea Nitrogen 20 mg/dL (8-24); Bun/Creatinine Ratio 23.9 (12.0-20.0); CO2, Blood 31 mmol/L (21-32); Calcium, Blood 8.3 mg/dL (8.5-10.1); Chloride, Blood 104 mmol/L (98-108); Creatinine, Blood 0.84 mg/dL (0.60-1.20); Glomerular Filtration Rate >60 (60-); Glucose, Blood 176 mg/dL (70-99); Phosphorus, Blood 3.3 mg/dL (2.5-4.9); Potassium, Blood 3.4 mmol/L (3.5-5.5); Sodium, Blood 141 mmol/L (136-145)
--- NOTE | 2021-02-16 05:50 | NUR ---
shift summary resumed care for patient at about 0230. pt alert and oriented, able to make needs known. cooperative with plan of care. sats >90% on cpap with 5l bleed in. tele nsr/sinus tach. voiding to urinal. no bm. skin intact. pt c/o chronic lower back pain - see emar, and c/o headache which may be attributed to the elevate bp pt has. see emar for pain management and for bp management. am labs show potassium 3.4 - md ordered 40meq of potassium iv, infusing now. other vitals stable. call light within reach, bed in lowest position. will continue to monitor.
--- NOTE | 2021-02-16 11:04 | NUR ---
CARE ASSUMED ASSESSMENTS COMPLETED, PT ALERT AND ORIENTED, FLAT AFFECTED BUT OTHERWISE APPROPRIATE AND COOPERATIVE. PT ON HOME CPAP WITH 5L BLEED IN, THEN PLACED ON 4L/NC BY RT WITH SPO2 MID 90'S, PT DENIES SOB, REPORTS PRODUCTIVE COUGH. LS DIMINISHED T/O, NO WHEEZES OR COARSE SOUNDS NOTED. HR 100-110 SINUS, BP HYPERTENSIVE WITH SBP 180-200, WILL MEDICATE PER MAR. PT DENIES CHEST PAIN, SOB, OR DIZZINESS. LE'S MINIMALLY EDEMATOUS. PT ASSISTED BY P/T TO BR FOR BM, THEN TO CHAIR, SPO2 91% WITH ACTIVITY, THEN BACK TO 96% WITH REST, SOB MINIMAL. PT MEDICATED FOR HEADACHE AND BACK PAIN, TOLERATED MEDS WELL. PLAN TO DISCUSS RESUMPTION OF HOME MEDS WITH AND TO GET PT TO SHOWER LATER TODAY.
--- NOTE | 2021-02-16 11:46 | NUR ---
[facility] follow up for advanced care planning conversation. CHANGE in CODE status orders from FULL to Limited with ventilation/medications only. Pt sitting up in chair after PT session. He remains alert, oriented and calm. He appears sl more comfortable than yesterday but reports fairly constand chronic severe back pain. His pain level is a 5 per nonverbal indicators of grimacing and self reported. Pt has had gage d/c'd since yesterday's visit and is eagerly anticipating a shower today. We had a long conversation about many things, what brought him to the hospital, his personal and family hx, family dynamics, and wishes in regard to resuscitation/advanced care planning. Pt is a [place] . He lost a close friend he served with due to injuries sustained in [place], who years later was unable to continue without a functioning pancreas. He lost his brother to cirrhosis of the liver in his 50's. Pt is open about his own hx with substance use and his efforts to influence upon his children, the personal and health risks of substance abuse. He states he has 13 biological children and 10 more "adopted" children. He reports that his son, Liang, is an alcoholic, who he loves dearly but comes with a lot of issues. "He won't be leaving my side any time soon". He speaks fondly of a grandson in [place], Liang Velasquez, who he does not see as often as he would like now that grandson is grown and has a family of his own. 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 He says the best he can do for his children is to pray for them. Pt is very clear that he does not want his son, Liang or grandson, Liang hradin, to be his proxy medical decision maker. No other children were named. He has one [place] "ad[place]ed" [place] he will [place] today and ask if she would be willing to be his proxy and emergency match up person. When reviewing quality of life indicators for him and advanced care wishes pt states he does not want CPR. "If I am that far gone, let me go". He is ok with SHORT term intubation or dialysis if there is hope of return to independent living. He would not want a trach or peg feeding tube if he was unable to be weaned from vent or recover after 1-2 weeks of care. Pt states he is afraid his son and/or other children would try to override his wishes. He understands the need for an identified and documented proxy. Pt's wishes reviewed with pt's RN and Dr. PINEDA obtained and entered for limited code status/intubation and medications only. Plan to f/u with pt tomorrow to finish POLST and document his proxy medical decision maker for him.
--- NOTE | 2021-02-16 15:01 | NUR ---
UPDATE PT ON HOME DOSE OF O2 3L/NC, SPO2 >90%, PT DENIES SOB AT REST, MINIMAL SOB WITH EXERTION. LS REMAIN CLEAR, DIMINISHED IN BASES, PT REPORTS SINGH SPUTUM WITH SCANT BLOOD STREAKING. PT UP IN CHAIR UNTIL THIS AFTERNOON, THEN AMBULATED TO SHOWER WITH SBA, NOW BACK TO BED. OXYCODONE ADMINISTERED FOR BACK PAIN, PT NOW RESTING. BP HAS IMPROVED SINCE AM MEDS, SBP 160.
--- NOTE | 2021-02-16 19:25 | NUR ---
END OF SHIFT PT HAD GOOD DAY TODAY, NAPPED AFTER HAVING SHOWER THIS AFTERNOON. LS REMAIN CLEAR, DIMINISHED IN BASES, O2 AT BASELINE 3L/NC, SPO2 MID 90'S, PT DENIES SOB AT REST AND REPORTS MINIMAL SOB WITH ACTIVITY. HR 100 SINUS, NO VT NOTED TODAY. BP DECREASED AFTER PO MEDICATIONS, THEN INCREASED AGAIN THIS EVENING, SBP 170'S. HYDRALAZINE ADMINISTERED PER ORDERS, SBP NOW 150'S. PT DENIED CP/DIZZINESS T/O SHIFT. TOLERATED MEALS WELL, VOIDING WITHOUT DIFFIUCLTY. MEDICATED TODAY FOR CHRONIC BACK PAIN AND HEADACHES, TOLERATED PAIN MEDS WELL. PT NOW RESTING WITH EYES CLOSED, VSS. REPORT TO ONCOMING SHIFT.
[2021-02-17 03:44] LABS: BASOPHILS ABSOLUTE AUTO 0.06 K/mm3 (0.00-0.23); BASOPHILS PERCENT AUTO 1 % (0-2); EOSINOPHILS ABSOLUTE AUTO 0.28 K/mm3 (0.00-0.68); EOSINOPHILS PERCENT AUTO 3 % (0-6); Hematocrit 35.9 % (37.0-53.0); Hemoglobin 10.9 g/dL (13.5-17.5); IMMATURE GRAN ABSOLUTE AUTO 0.03 K/mm3 (0.00-0.10); IMMATURE GRAN PERCENT AUTO 0 % (0-1); LYMPHOCYTES PERCENT AUTO 11 % (21-46); MONOCYTES ABSOLUTE AUTO 1.38 K/mm3 (0.16-1.47); MONOCYTES PERCENT AUTO 12 % (4-13); Mean Corpuscular HGB 22.9 pg (26.0-34.0); Mean Corpuscular HGB Conc 30.4 g/dL (31.5-36.5); Mean Corpuscular Volume 75 fL (80-100); Mean Platelet Volume 11.3 fL (9.1-12.4); NEUTROPHILS ABSOLUTE AUTO 8.38 K/mm3 (1.96-9.15); NEUTROPHILS PERCENT AUTO 74 % (41-73); Platelet Count 303 K/mm3 (150-400); RDW Coefficient Variation 19.1 % (11.7-14.2); RDW Standard Deviation 50.2 fL (35.1-46.3); Red Blood Cell Count 4.77 M/mm3 (4.30-5.90); White Blood Cell Count 11.33 K/mm3 (4.00-11.30)
[2021-02-17 04:05] LABS: Albumin, Blood 2.1 g/dL (3.4-5.0); Anion Gap 3 mmol/L (6-16); Blood Urea Nitrogen 26 mg/dL (8-24); Bun/Creatinine Ratio 26.6 (12.0-20.0); CO2, Blood 35 mmol/L (21-32); Calcium, Blood 8.4 mg/dL (8.5-10.1); Chloride, Blood 102 mmol/L (98-108); Creatinine, Blood 0.98 mg/dL (0.60-1.20); Glomerular Filtration Rate >60 (60-); Glucose, Blood 112 mg/dL (70-99); Magnesium, Blood 2.1 mg/dL (1.6-2.4); Phosphorus, Blood 3.8 mg/dL (2.5-4.9); Potassium, Blood 3.5 mmol/L (3.5-5.5); Sodium, Blood 140 mmol/L (136-145)
--- NOTE | 2021-02-17 10:00 | NUR ---
CARE ASSUMED ASSESSMENTS COMPLETED, PT APPROPRIATE AND COOPERATIVE. O2 AT 3L/NC, SPO2 >90%, PT DENIES SOB, LS CLEAR, DIM IN BASES. PT REPORTS YELLOW AND BROWN SPUTUM PRODUCTION. HR 80-100 SINUS, BP STABLE AFTER AM MEDICATIONS, PT DENIES CHEST PAIN/DIZZINESS, MEDICATED FOR CHRONIC HEADACHE. EDEMA TO LE'S MINIMAL. IV REPLACED FOR COMFORT PER PT'S REQUEST. PT TOLERATED BREAKFAST AND AM MEDICATIONS WELL, DENIES NEEDS AT THIS TIME.
--- NOTE | 2021-02-17 13:58 | NUR ---
Pal care visit - Pt named Ayesha Diaz [phone] as proxy medical dec maker. James is now PCU status, still in ICU at this time. He reports much improved pain management with PO analgesics/home medications. He had urinal with 525 ml cl straw colored urine on overbed table that I emptied and reported to RN. Pt stated diuretics have kept him using urinal frequently. Pt states he has a rosas coming to visit from [place], hopefully today. We reviewed and completed his POLST form and entered friend of family, Ayesha Diaz as his surrogate medical decision maker. She was present when pt was intubated two days ago after pt's son, Liang, called her to help with decisions on care. I also called Ayesha and reviewed pt's POLST in detail with her, with pt's permission. Ayesha was well informed by pt on his wishes prior to my conversation and she feels able to act on his behalf if needed. She lives approx one mile from pt. She understands and supports pt's wishes for no CPR or correction life support of any kind. She verbalized understanding that he was ok with short term ICU support, ventilatory support, limited treatment but NO trach or peg tube for superintendent container terminal ventilatory support or nutritional support. Pt does not want aggressive intervention if there is little expectation that he could return to independent living and self care. This was reviewed with RN and . After signed, copies made for andrew & Ayesha, sent to medical records and original given to James with copy for friend, Ayesha. Per his request, they were placed in a folder that [facility] volunteer had left in his room. No further needs identified at this time. [facility] Care will return as needed.
--- NOTE | 2021-02-17 15:19 | NUR ---
UPDATE PT WORKED WITH P/T, THEN UP TO CHAIR FOR LUNCH. ATTEMPTED TO WEAN PT OFF OF OXYGEN, PT DESATTED TO 80'S DURING ACTIVITY, O2 REMAINS ON AT 3L. PATIENT CLEARED BY P/T TO BE INDEPENDENT IN ROOM. AFTER LUNCH PT CLEANED HIMSELF UP AT THE BEDSIDE, BRUSHED TEETH. PT VOIDING WITHOUT DIFICULTY, MEDICATED FOR HEADACHE AND CHRONIC BACK PAIN, DENIES C/O. BP REMAINS STABLE WITH EMAR MEDS, NO HYDRALAZINE THIS SHIFT.
--- NOTE | 2021-02-17 19:04 | NUR ---
END OF SHIFT PT HAD A GOOD DAY TODAY, ON 2L/NC AT THIS TIME WITH SPO2 > 90% AND NO SOB, LS REMAIN DIMINISHED BUT CLEAR. VSS, NO HYDRALAZINE THIS SHIFT. PT INDEPENDENT IN ROOM, GAIT STEADY. TOLERATING MEALS AND PO MEDS WELL, VOIDS SMALL AMOUNTS FREQUENTLY, NO C/O URINARY SYMPTOMS.
[2021-02-18 03:28] LABS: BASOPHILS ABSOLUTE AUTO 0.08 K/mm3 (0.00-0.23); BASOPHILS PERCENT AUTO 1 % (0-2); EOSINOPHILS PERCENT AUTO 3 % (0-6); Hemoglobin 10.3 g/dL (13.5-17.5); IMMATURE GRAN ABSOLUTE AUTO 0.02 K/mm3 (0.00-0.10); IMMATURE GRAN PERCENT AUTO 0 % (0-1); LYMPHOCYTES ABSOLUTE AUTO 0.95 K/mm3 (0.84-5.20); LYMPHOCYTES PERCENT AUTO 11 % (21-46); MONOCYTES ABSOLUTE AUTO 1.07 K/mm3 (0.16-1.47); MONOCYTES PERCENT AUTO 12 % (4-13); Mean Corpuscular HGB 22.7 pg (26.0-34.0); Mean Corpuscular HGB Conc 30.3 g/dL (31.5-36.5); Mean Corpuscular Volume 75 fL (80-100); Mean Platelet Volume 10.9 fL (9.1-12.4); NEUTROPHILS ABSOLUTE AUTO 6.57 K/mm3 (1.96-9.15); NEUTROPHILS PERCENT AUTO 73 % (41-73); Platelet Count 266 K/mm3 (150-400); RDW Coefficient Variation 18.8 % (11.7-14.2); RDW Standard Deviation 50.8 fL (35.1-46.3); Red Blood Cell Count 4.53 M/mm3 (4.30-5.90); White Blood Cell Count 8.99 K/mm3 (4.00-11.30)
[2021-02-18 03:47] LABS: Alanine Aminotransfer (ALT/SGP 23 U/L (12-78); Albumin, Blood 2.1 g/dL (3.4-5.0); Albumin/Globulin Ratio 0.5 (0.8-1.8); Alk Phos 55 U/L (50-136); Anion Gap 2 mmol/L (6-16); Aspartate Aminotrans (AST/SGOT 13 U/L (12-37); Bilirubin, Total 0.3 mg/dL (0.1-1.0); Blood Urea Nitrogen 25 mg/dL (8-24); Bun/Creatinine Ratio 26.1 (12.0-20.0); CO2, Blood 38 mmol/L (21-32); Calcium, Blood 8.3 mg/dL (8.5-10.1); Chloride, Blood 100 mmol/L (98-108); Creatinine, Blood 0.96 mg/dL (0.60-1.20); Globulin, Blood 3.9 g/dL (2.2-4.0); Glomerular Filtration Rate >60 (60-); Glucose, Blood 189 mg/dL (70-99); Magnesium, Blood 2.1 mg/dL (1.6-2.4); Phosphorus, Blood 3.8 mg/dL (2.5-4.9); Potassium, Blood 3.4 mmol/L (3.5-5.5); Sodium, Blood 140 mmol/L (136-145)
--- NOTE | 2021-02-18 04:01 | NUR ---
SHIFT SUMMARY PATIENT ALERT AND ORIENTED. INDEPENDENT IN ROOM. USES URINAL. 02 SATS >92% ON 2L NC WHEN UP. CPAP WITH 5L AT NIGHT WHILE SLEEPING. PATIENT SLEPT MOST THE NIGHT. BLOOD PRESSURE STABLE, NO PRN HYDRALAZINE NEEDED. VSS, NO ACUTE CHANGES. CALL LIGHT IN REACH.
--- NOTE | 2021-02-18 08:20 | NUR ---
INITIAL ASSESSMENT PATIENT ALERT AND ORIENTED X 4. AFEBRILE. PATIENT SLIGHTLY WEAK BUT ABLE TO AMBULATE WELL INDEPENDENTLY IN ROOM. PATIENT GIVEN PRN PAIN MEDICATIONS FOR COMPLAINTS OF CHRONIC HEADACHE AND LOWER BACK PAIN THIS AM. PATIENT SATTING 90% AND GREATER ON 2 L NC WHILE AWAKE AND ON HOME CPAP WITH 5 L O2 BLEED IN AT NIGHT. LUNGS CLEAR IN UPPER LOBES AND DIMINISHED IN LOWER LOBES. PATIENT SOB WITH EXERTION. PATIENT HAVING DRY COUGH THIS AM. PATIENT IN SR, HR IN THE 90S. SBP IN THE 150S. 1+ EDEMA NOTED IN BLES. GI WNL. PATIENT RECEIVING SCHEDULED LASIX. PATIENT USES URINAL INDEPENDENTLY. SCATTERED SCARS AND BRUISES NOTED T/O BODY. PSORIARIS NOTED. IV FLUSHED AND SALINE LOCKED. BED LOW, CALL LIGHT IN REACH. WILL CONTINUE TO MONITOR PATIENT FREQUENTLY THROUGHOUT SHIFT.
--- NOTE | 2021-02-18 11:52 | NUR ---
DR. PLAZATRATE HERE TO SEE PATIENT. 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 INFORMED THAT PATIENT'S POTASSIUM 3.4. INFORMED THAT O2 SATS OVER 90% ON 2 L NC. INFORMED THAT O2 AT 90% ON 2 L NC WHEN PATIENT WORKING WITH PHYSICAL THERAPY. ORDERS RECEIVED.
--- NOTE | 2021-02-18 14:27 | NUR ---
SHIFT SUMMARY/ TRANSFER PATIENT REMAINED ALERT AND ORIENTED. AFEBRILE. PATIENT GIVEN PRN PAIN MEDICATIONS FOR COMPLAINTS OF HEADACHE AND BACK PAIN. PATIENT SBA IN ROOM BECAUSE OF LINES AND CORDS. WITHOUT LINES AND CORDS WOULD BE FINE TO MOVE AROUND INDEPENDENTLY. PATIENT REMAINED SATTING 90% AND GREATER ON 2 L NC. RA IS PATIENT'S BASELINE. PATIENT SLIGHTLY SOB WITH EXERTION. PATIENT IN SR, HR 80S TO 90S. SBP 130S TO 180S. NO BM THIS SHIFT. PATIENT HAD GOOD APPETITE. PATIENT VOIDED ADEQUATE. NO CHANGE TO SKIN. PATIENT WORKED WITH PHYSICAL THERAPY. PATIENT HAD SHOWER. PATIENT GIVEN 40 MEQ KCL X 3 DAYS FOR POTASSIUM LEVEL OF 3.4 THIS AM. BLOOD SUGARS 169 TO 220; COVERAGE GIVEN BOTH TIMES. PATIENT WILL BE TRANSFERRING SHORTLY TO MEDICAL FLOOR, ROOM 308.
--- NOTE | 2021-02-18 14:40 | NUR ---
PATIENT TAKEN TO MEDICAL FLOOR, ROOM 108. BELONGINGS SENT WITH PATIENT.
--- NOTE | 2021-02-18 15:23 | NUR ---
PT RESTING IN BED WITH FAMILY AT BEDSIDE. PT IS ALERT AND ORIENTED X4 AND MAKES NO COMPLAINTS OF PAIN OR SOB AT THIS TIME. PT LINE IS SL AND WNL. BED IN LOW POSITION AND CALL LIGHT WITHIN REACH. STAFF WILL CONT. TO MONITOR FOR CHANGES.
--- NOTE | 2021-02-18 19:05 | NUR ---
ASSUMED CARE RECEIVED REPORT FROM CHANDRIKA KHANNA. PT RESTING, IN NO ACUTE DISTRESS. DENIES NEEDS AT THIS TIME. CALL LIGHT, POSSESSIONS IN REACH. BED IN LOW POSITION.
--- NOTE | 2021-02-18 19:32 | NUR ---
PT RESTING IN BED MAKING NO COMPLAINTS OF SOB OR PAIN. PT IS ALERT AND ORIENTED X4, IV LINE SL AND WNL. PT BED IS IN LOW POSITION AND CALL LIGHT WITHIN REACH. STAFF WILL CONT TO MONITOR.
--- NOTE | 2021-02-19 03:30 | NUR ---
TRANSFER OF CARE REPORT GIVEN TO ALIYAH YIP RN. PT ASLEEP AT THIS TIME, NO ACUTE DISTRESS OR NEEDS ASSESSED. CALL LIGHT AND POSSESSIONS IN REACH.
--- NOTE | 2021-02-19 03:45 | NUR ---
ASSUMED CARE OF PT FROM OVIDIO COBOS. PT IS ASLEEP AT THIS TIME WITH ROOM TV ON, RESP ARE EVEN AND UNLABORED.
[2021-02-19 05:27] LABS: BASOPHILS ABSOLUTE AUTO 0.06 K/mm3 (0.00-0.23); BASOPHILS PERCENT AUTO 1 % (0-2); EOSINOPHILS ABSOLUTE AUTO 0.28 K/mm3 (0.00-0.68); EOSINOPHILS PERCENT AUTO 3 % (0-6); Hematocrit 33.8 % (37.0-53.0); Hemoglobin 10.1 g/dL (13.5-17.5); IMMATURE GRAN ABSOLUTE AUTO 0.03 K/mm3 (0.00-0.10); IMMATURE GRAN PERCENT AUTO 0 % (0-1); LYMPHOCYTES ABSOLUTE AUTO 0.98 K/mm3 (0.84-5.20); LYMPHOCYTES PERCENT AUTO 12 % (21-46); MONOCYTES ABSOLUTE AUTO 0.96 K/mm3 (0.16-1.47); MONOCYTES PERCENT AUTO 12 % (4-13); Mean Corpuscular HGB 22.5 pg (26.0-34.0); Mean Corpuscular HGB Conc 29.9 g/dL (31.5-36.5); Mean Corpuscular Volume 75 fL (80-100); Mean Platelet Volume 11.3 fL (9.1-12.4); NEUTROPHILS PERCENT AUTO 72 % (41-73); Platelet Count 292 K/mm3 (150-400); RDW Coefficient Variation 18.7 % (11.7-14.2); RDW Standard Deviation 50.2 fL (35.1-46.3); Red Blood Cell Count 4.48 M/mm3 (4.30-5.90); White Blood Cell Count 8.31 K/mm3 (4.00-11.30)
[2021-02-19 05:52] LABS: Anion Gap 1 mmol/L (6-16); Blood Urea Nitrogen 23 mg/dL (8-24); Bun/Creatinine Ratio 26.5 (12.0-20.0); CO2, Blood 36 mmol/L (21-32); Calcium, Blood 8.3 mg/dL (8.5-10.1); Chloride, Blood 99 mmol/L (98-108); Creatinine, Blood 0.87 mg/dL (0.60-1.20); Glomerular Filtration Rate >60 (60-); Glucose, Blood 182 mg/dL (70-99); Potassium, Blood 3.5 mmol/L (3.5-5.5); Sodium, Blood 136 mmol/L (136-145)
--- NOTE | 2021-02-19 06:03 | NUR ---
PT SLEPT WAKING THIS AM TO REQUEST A PAIN PILL FOR NECK BACK AND LEG PAIN AND TO USE THE RESTROOM WITH STEADY GAIT. PT APPEARED TO FALL BACK ASLEEP WEARING CPAP.
--- NOTE | 2021-02-19 07:06 | NUR ---
REPORT GIVEN TO CHANDRIKA WARD.
[2021-02-19] MEDS ORDERED: Acetaminophen325 M1 PO (10:26)
[2021-02-19] MEDS ORDERED: FURO20 PO (10:27)
[2021-02-19] MEDS ORDERED: CEFP200 PO (10:27)
[2021-02-19] MEDS ORDERED: EXTRA PAIN REL1 EAC2 PO (10:27)
[2021-02-19] MEDS ORDERED: HYDRA25 PO (10:30)
[2021-02-19] MEDS ORDERED: LIDOCAINE 2% JELLY UD (10:33)
[2021-02-19] MEDS ORDERED: VISBIOME 112.51 EACH PO (10:34)
[2021-02-19] MEDS ORDERED: ONDA4ODT MM (10:34)
[2021-02-19] MEDS ORDERED: POTCHL20ER PO (10:34)
--- NOTE | 2021-02-19 17:04 | NUR ---
PATIENT D/C'D TO HOME WITH FAMILY. RX MEDICATIONS FAXED TO [facility] AND VOUCHER AND SCRIPT GIVEN TO TAKE TO [facility] TO COVER MEDICATIONS THROUGH THE WEEKEND. [facility] WITH [facility] ABOUT PATIENT NEEDING PORTABLE O2 TANK AND NEW CONCENTRATOR AND WAS INSTRUCTED TO CALL [facility] AND HAVE THEM DELIVER IT. CO REQUESTED A PHYSICIAN ORDER AND THE RT ASSESSMENT FOR REIMBURSEMENT AND THOSE WERE FAXED. [facility] CONTACTED AND PORTABLE TANK DELEIVERED. DC INSTRUCTIONS AND EDUCATION DISCUSSED WITH PATIENT AND COPY PROVIDED. PATIENT DENIES ANY FURTHER QUESTIONS OR CONCERNS.
== END 2021-02-19 16:59 | disposition home health service (06) | DRG 871 ==
LOC: ER 13:06 → ICUW 14:28 → MEDS 02-18 14:43
PROVIDERS: Emergency Medicine; Family Medicine; Internal Medicine Critical Care Medicine; ADMIT Internal Medicine
PROC: 5A09357 Assistance with Respiratory Ventilation, Less than 24 Consecutive Hours, Continuous Positive Airway Pressure (ICD-10-PCS; principal; 2021-02-14)
PROC: 5A1935Z Respiratory Ventilation, Less than 24 Consecutive Hours (ICD-10-PCS; 2021-02-14)
PROC: 0BH17EZ Insertion of Endotracheal Airway into Trachea, Via Natural or Artificial Opening (ICD-10-PCS; 2021-02-14)
DX: A41.9 Sepsis, unspecified organism (principal); J96.21 Acute and chronic respiratory failure with hypoxia; J18.9 Pneumonia, unspecified organism; R65.21 Severe sepsis with septic shock; J96.22 Acute and chronic respiratory failure with hypercapnia; G92 Toxic encephalopathy; I50.23 Acute on chronic systolic (congestive) heart failure; I21.A1 Myocardial infarction type 2; J44.0 Chronic obstructive pulmonary disease with (acute) lower respiratory infection; B18.1 Chronic viral hepatitis B without delta-agent; Z68.38 Body mass index [BMI] 38.0-38.9, adult; G47.33 Obstructive sleep apnea (adult) (pediatric); Z20.822 Contact with and (suspected) exposure to COVID-19; I25.10 Atherosclerotic heart disease of native coronary artery without angina pectoris; J44.9 Chronic obstructive pulmonary disease, unspecified; E11.9 Type 2 diabetes mellitus without complications; I10 Essential (primary) hypertension; E78.5 Hyperlipidemia, unspecified; I16.0 Hypertensive urgency; E11.69 Type 2 diabetes mellitus with other specified complication; E66.01 Morbid (severe) obesity due to excess calories; Z99.81 Dependence on supplemental oxygen; E78.00 Pure hypercholesterolemia, unspecified; Z86.73 Personal history of transient ischemic attack (TIA), and cerebral infarction without residual deficits; Z87.11 Personal history of peptic ulcer disease; Z98.890 Other specified postprocedural states; Z87.891 Personal history of nicotine dependence; Z79.899 Other long term (current) drug therapy; Z79.4 Long term (current) use of insulin; Z79.02 Long term (current) use of antithrombotics/antiplatelets; Z95.5 Presence of coronary angioplasty implant and graft; Z95.1 Presence of aortocoronary bypass graft; E11.40 Type 2 diabetes mellitus with diabetic neuropathy, unspecified
CPT/HCPCS: 0241U; 31720; 36415; 36600; 51702; 70450; 71045; 71046; 80047; 80048; 80053; 80069; 81001; 82803; 82947; 83605; 83735; 83880; 84100; 84145; 84484; 85014; 85025; 87040; 87070; 87106; 87205; 93005; 93010; 93306; 94002; 94003; 94640; 94761; 94762; 96365-59; 96367-59; 96375-59; 97110; 97116; 97162; 99291-25; A9270; A9270-GY; C9113; J0360; J0456; J0696; J1644; J1815; J1940; J2704; J3010; J3480; J7030; J7050

== ENCOUNTER 2021-03-16 05:05 | Inpatient (IN) | payer OTHER, MEDICARE ==
[~2021-03-16] VITALS: Ht 182.9 cm; Wt 119.0 kg
[~2021-03-16 05:05] MED LIST changes: +ALPROSTADIL 20 MCG XX; +ASPIR 8181 M1 PO; +ATOR40TA PO; +Acetaminophen325 M1 PO; +BASAGLAR K100 UNIT/1 SC; +CALCIPOTRIENE60 G1 TOP; +CEFP200 PO; +COMBIVENT RESPIM4 G1 INH; +DOC250 PO; +EXTRA PAIN REL1 EAC2 PO; +Enalapril Malea20 MG PO; +FURO20 PO; +Fluocinonide15 GM TOP; +GLIP10 PO; +GLUCOPHAGE1000 M1 PO; +GLUCOSE4 GM PO; +Glucagon Emergen1 MG IM; +HYDRA25 PO; +LATA.005SO BOTHEYES; +LIDOCAINE 2% JELLY UD; +METO50ER PO; +NICODERM CQ1 EAC1 TD; +ONDA4ODT MM; +OXYC5 PO; +Omeprazole20 M1 PO; +SYMBICORT 80-10.2 GM INH; +TAMS.4ER PO; +VEMLIDY25 MG PO; +VISBIOME 112.51 EACH PO
[2021-03-16 05:20] LABS: Calcium, Ionized (POC) 1.21 mmol/L (1.10-1.46); Chloride (POC) 98 mmol/L (98-108); Creatinine (POC) 1.1 mg/dL (0.8-1.3); Glucose (ISTAT POC) 212 mg/dL (70-99); Potassium (POC) 3.8 mmol/L (3.5-5.5); Sodium (POC) 141 mmol/L (135-148); Total CO2 (POC) 34 mmol/L (21-32)
[2021-03-16 05:29] LABS: PO2 Arterial 206 mmHg (80-100)
[2021-03-16 05:30] LABS: PCO2 Arterial 87.2 mmHg (35-45); pH Blood Arterial 7.17 (7.35-7.45)
[2021-03-16 05:31] LABS: BASOPHILS ABSOLUTE AUTO 0.18 K/mm3 (0.00-0.23); BASOPHILS PERCENT AUTO 1 % (0-2); EOSINOPHILS ABSOLUTE AUTO 0.46 K/mm3 (0.00-0.68); EOSINOPHILS PERCENT AUTO 2 % (0-6); Hemoglobin 12.3 g/dL (13.5-17.5); IMMATURE GRAN ABSOLUTE AUTO 0.15 K/mm3 (0.00-0.10); IMMATURE GRAN PERCENT AUTO 1 % (0-1); LYMPHOCYTES ABSOLUTE AUTO 5.59 K/mm3 (0.84-5.20); LYMPHOCYTES PERCENT AUTO 28 % (21-46); MONOCYTES ABSOLUTE AUTO 1.87 K/mm3 (0.16-1.47); MONOCYTES PERCENT AUTO 9 % (4-13); Mean Corpuscular HGB 22.2 pg (26.0-34.0); Mean Corpuscular HGB Conc 28.6 g/dL (31.5-36.5); Mean Corpuscular Volume 78 fL (80-100); Mean Platelet Volume 11.2 fL (9.1-12.4); NEUTROPHILS PERCENT AUTO 59 % (41-73); Platelet Count 381 K/mm3 (150-400); RDW Coefficient Variation 19.6 % (11.7-14.2); RDW Standard Deviation 53.6 fL (35.1-46.3); Red Blood Cell Count 5.54 M/mm3 (4.30-5.90); White Blood Cell Count 20.15 K/mm3 (4.00-11.30)
[2021-03-16 05:51] LABS: Alanine Aminotransfer (ALT/SGP 77 U/L (12-78); Albumin, Blood 2.9 g/dL (3.4-5.0); Albumin/Globulin Ratio 0.6 (0.8-1.8); Alk Phos 107 U/L (50-136); Anion Gap 4 mmol/L (6-16); Aspartate Aminotrans (AST/SGOT 49 U/L (12-37); Bilirubin, Total 0.1 mg/dL (0.1-1.0); Blood Urea Nitrogen 22 mg/dL (8-24); Bun/Creatinine Ratio 21.2 (12.0-20.0); CO2, Blood 33 mmol/L (21-32); Calcium, Blood 8.9 mg/dL (8.5-10.1); Chloride, Blood 101 mmol/L (98-108); Creatinine, Blood 1.04 mg/dL (0.60-1.20); Ethanol (Alcohol), Blood, Med <3 mg/dL; Globulin, Blood 4.9 g/dL (2.2-4.0); Glomerular Filtration Rate >60 (60-); Glucose, Blood 213 mg/dL (70-99); Potassium, Blood 3.6 mmol/L (3.5-5.5); Sodium, Blood 138 mmol/L (136-145); Total Protein, Blood 7.8 g/dL (6.4-8.2); Troponin I 0.036 ng/mL (0.000-0.040)
[2021-03-16 06:09] LABS: Source, Urine Catheter
[2021-03-16 06:34] LABS: Bilirubin, Urine Neg (Neg); Blood, Urine 2+ (Neg); Glucose Qualitative, Urine 1+ (Neg); Ketones, Urine Neg (Neg); Leukocyte Esterase, Urine Neg (Neg); Nitrite, Urine Neg (Neg); Protein, Urine 4+ (Neg); Specific Gravity, Urine 1.015 (1.003-1.022); Urobilinogen, Urine NORM (Normal); pH, Urine 6.5 (5.0-8.0)
[2021-03-16 06:41] LABS: Appearance, Urine Clear (Clear); Color, Urine Yellow (P-Yellow)
[2021-03-16 06:43] LABS: Amorphous Light (0-Heavy); Bacteria Rare /hpf; Hyaline Casts 25-50 /lpf (0-2); Squamous Epithelial Cells Not Seen /hpf (Few); Transitional Epithelial Cells Few /hpf (0-Rare); White Blood Cells, Urine 0-2 /hpf (0-5)
[2021-03-16 07:48] LABS: SARS-Cov-2 (COVID-19) PCR, MMC NEGATIVE (NEGATIVE)
--- NOTE | 2021-03-16 08:30 | NUR ---
ASSUMED CARE RECEIVED REPORT FROM PLANT INSPECTOR. PT ARRIVED TO ROOM 13 IN ICU AT 0738, INTUBATED WITH 8.0 ETT, 25 AT LIPS; PROPOFOL AND LEVAQUIN INFUSING. PT CALM/SEDATED, BUT RESPONSIVE TO NOXIOUS STIMULI. CURRENT VENT IS SET AT AC/PC-18, 25/5, 60%. PROPOFOL INFUSING AT 20MCG/KG/MIN, AND WAS TITRATED DOWN D/T SOFT BLOOD PRESSURES. PT IN SINUS RHYTHM WITH RATE IN 70s, SPO2 HIGH 90s%. OG TUBE WAS HOOKED UP TO LIS, AND PICHARDO IS PATENT WITH A SMALL VOLUME OF YELLOW URINE IN BAG. BED LOW AND LOCKED. PT IS A CARMELITA MARTINES, UPON ARRIVAL - BUT APPEARS TO BE A PERSON WHO WAS RECENTLY ON THE VENTILATOR IN THE ICU, "ROSAS RIDOUT" WILL LOOK FURTHER INTO THIS.
--- NOTE | 2021-03-16 10:25 | NUR ---
UPDATE DR. SCHMIDT HAS SEEN PT, AND DECREASED INSP PRESSURE ON VENT TO 15, FIO2 DROPPPED TO 40% FIO2. STATES PT NEEDS DIURETICS, AND WANTS A LEVOPHED GTTP TO IMPROVE DIURERESIS, OKAY IF VIA PERIPHERAL IV UP TO A MAX DOSE OF 10 MCG/MIN, GOAL MAP > 60. PLACED A CALL TO ADRIENNE VARGAS (SON OF ROSAS VARGAS) IN [place] TO GET A CONFIRMATION ON THE PT's IDENTITY. LEFT A MESSAGE, NO ANSWER.
--- NOTE | 2021-03-16 11:02 | NUR ---
UPDATE- IV, LEVO, SON LEVOPHED WAS STARTED AT 5 MCG/MIN ( REQUESTED BY DR. SCHMIDT) IN HIS PERIPHERAL LEFT AC IV (20G). THIS IV DRAWS BLOOD BACK, AND FLUSHES WITH EASE. SITE WNL. GOAL MAP > 60, GOAL SBP > 90. MAX DOSE TO BE 10 MCG/MIN VIA PERIPHERAL IV, AND DR. SCHMIDT WILL NEED TO BE NOTIFIED IF HE REQUIRES THIS DOSE OF LEVOPHED. TALKED WITH SON: ADRIENNE VARGAS, AND HE WAS ABLE TO DESCRIBE THE PT IN DETAIL AND VALIDATED HIS PHONE TYPE. HE STATES HE IS CURRENTLY UNABLE TO DRIVE TO HOSPITAL TO SEE THE PT. HE IS STUCK IN [place], OR WITH A BROKEN DOWN CAR. HE STATES HE WILL TRY TO COME IN IF HE CAN FIGURE OUT A WAY. HE IS INSTRUCTED TO GIVE THE ICU A CALL BEFORE HE COMES IN.
[2021-03-16 11:21] LABS: CPK Creatine Kinase 65 U/L (39-308)
[2021-03-16 11:30] LABS: Base Excess Venous -0.1 mmol/L; Bicarbonate Venous 23.8 mmol/L (24.0-30.0); pH Blood Venous 7.31 (7.34-7.37)
[2021-03-16 11:41] LABS: U Amphetamine Screen Not Detected; U Barbituate Screen Not Detected; U Benzodiazapine Screen DETECTED; U Buprenorphine Screen Not Detected; U Cannabinoids Screen Not Detected; U Cocaine Screen Not Detected; U Methadone Screen Not Detected; U Methamphetamine Screen Not Detected; U Opiates Screen DETECTED; U Oxycodone Screen DETECTED; U Phencyclidine Screen Not Detected
[2021-03-16 11:42] LABS: U Propoxyphene Screen Not Detected
--- NOTE | 2021-03-16 13:09 | NUR ---
UPDATE AFTER PASSING SBT - PT WAS EXTUBATED AT 1250 AND PLACED ON 3L NC, SPO2 96%, PT DENIES SOB/DISTRESS. HE WAS COMPLAINING OF HIS PICHARDO BEING PLUGGED UP AND WANTED IT OUT, PICHARDO TAKEN OUT AT 1255; PT USING URINAL. HE HAS HAD GREAT URINE OUTPUT SINCE LASIX ADMINISTRATION (650ML). HE IS ALERT AND ORIENTED TO SELF, SITUATION, SURROUNDINGS/PLACE, FAMILY, AND TIME. HE IS CALM AND COOPERATIVE. HYPERTENSIVE OFF SEDATION. WILL CONTINUE TO MONITOR. SON HAS BEEN CALLED, AND NOTIFIED. PT CONFIRMS IDENTITY ROSAS RIDOUT.
[2021-03-16 17:32] LABS: Troponin I 0.231 ng/mL (0.000-0.040)
--- NOTE | 2021-03-16 17:39 | NUR ---
UPDATE NO ACUTE CHANGES SINCE EXTUBATION. PT ON 2L NC, SPO2 94%+, VSS. PT STARTED BACK ON HOME MEDICATIONS. PT PASSED SWALLOWING EVAL, AND HAS TOLERATED THIN AND FULL LIQUIDS. ON ADA DIET. PT COMPLETELY ALERT AND ORIENTED X 4. PT STATES THAT HIS NEXT OF KIN, HEALTHCARE PROXY IS HIS GRANDDAUGHTER - KEITH, WHICH IS SHOWN ON HIS POLST FORM. HE ALSO TOLD ME HE WANTS TO BE GIVEN A SHOT (IN TERMS OF CPR/INTUBATION) IF HE HAS CARDIAC ARREST, BUT IF "IT DOESN'T LOOK GOOD" TO CALL OFF THE CODE. HE STATES THAT HIS PROXY- KEITH- IS AWARE OF WHAT HE WANTS AND IT TO BE NOTIFIED FOR DECISION MAKING. PT IS TRANSFERRING TO PCU 5, REPORT GIVEN TO RED CAP.
[2021-03-17 04:10] LABS: BASOPHILS ABSOLUTE AUTO 0.05 K/mm3 (0.00-0.23); BASOPHILS PERCENT AUTO 0 % (0-2); EOSINOPHILS ABSOLUTE AUTO 0.04 K/mm3 (0.00-0.68); EOSINOPHILS PERCENT AUTO 0 % (0-6); Hematocrit 34.5 % (37.0-53.0); Hemoglobin 10.4 g/dL (13.5-17.5); IMMATURE GRAN ABSOLUTE AUTO 0.05 K/mm3 (0.00-0.10); IMMATURE GRAN PERCENT AUTO 0 % (0-1); LYMPHOCYTES ABSOLUTE AUTO 1.46 K/mm3 (0.84-5.20); LYMPHOCYTES PERCENT AUTO 11 % (21-46); MONOCYTES ABSOLUTE AUTO 1.57 K/mm3 (0.16-1.47); MONOCYTES PERCENT AUTO 11 % (4-13); Mean Corpuscular HGB 22.4 pg (26.0-34.0); Mean Corpuscular HGB Conc 30.1 g/dL (31.5-36.5); Mean Corpuscular Volume 74 fL (80-100); Mean Platelet Volume 11.1 fL (9.1-12.4); NEUTROPHILS ABSOLUTE AUTO 10.75 K/mm3 (1.96-9.15); NEUTROPHILS PERCENT AUTO 77 % (41-73); Platelet Count 288 K/mm3 (150-400); RDW Coefficient Variation 19.2 % (11.7-14.2); RDW Standard Deviation 50.7 fL (35.1-46.3); Red Blood Cell Count 4.65 M/mm3 (4.30-5.90); White Blood Cell Count 13.92 K/mm3 (4.00-11.30)
[2021-03-17 04:32] LABS: Alanine Aminotransfer (ALT/SGP 53 U/L (12-78); Albumin, Blood 2.5 g/dL (3.4-5.0); Albumin/Globulin Ratio 0.6 (0.8-1.8); Alk Phos 73 U/L (50-136); Anion Gap 4 mmol/L (6-16); Aspartate Aminotrans (AST/SGOT 19 U/L (12-37); Bilirubin, Total 0.2 mg/dL (0.1-1.0); Blood Urea Nitrogen 35 mg/dL (8-24); Bun/Creatinine Ratio 28.7 (12.0-20.0); CO2, Blood 34 mmol/L (21-32); Calcium, Blood 8.4 mg/dL (8.5-10.1); Chloride, Blood 100 mmol/L (98-108); Creatinine, Blood 1.22 mg/dL (0.60-1.20); Globulin, Blood 3.9 g/dL (2.2-4.0); Glomerular Filtration Rate >60 (60-); Glucose, Blood 126 mg/dL (70-99); Sodium, Blood 138 mmol/L (136-145); Total Protein, Blood 6.4 g/dL (6.4-8.2)
--- NOTE | 2021-03-17 06:25 | NUR ---
SHIFT SUMMARY PT WAS ALERT AND ORIENTED T/O THE SHIFT. PT WAS BECOMING FRUSTRATED WITH CARE DUE TO LACK OF PAIN MEDICATION. PT WAS EDUCATED ON PAIN MEDICATIONS AND THEIR USE. PT WAS ON 2LPM VIA NC WITH O2 SATS LOW 90'S, ON CPAP WITH 2LPM BLEED-IN WHEN SLEEPING WITH O2 SATS LOW 90'S. LUNGS COARSE SOUNDING. BP HYPERTENSIVE, 160'S DOWN TO 140'S SUSTOLIC BY AM. HR 80-90'S. PT DENIED ANY CHEST PAIN. PAIN IS CHRONIC IN LOWER BACK AND LEGS WELL HEADACHE PER PT. PT WAS INDEPENDENT IN ROOM WITH SUPERVISION WHEN UP FOR SAFETY. PT HAD A QUIET UNEVENTFUL NIGHT.
[2021-03-17] MEDS ORDERED: ACET325 PO (11:54)
[2021-03-17] MEDS ORDERED: AMLO10 PO (11:56)
[2021-03-17] MEDS ORDERED: CAVERJECT20 MCG (11:56)
[2021-03-17] MEDS ORDERED: ASPI81CH PO (11:57)
[2021-03-17] MEDS ORDERED: ATOR40TA PO (11:58)
[2021-03-17] MEDS ORDERED: EXTRA PAIN REL1 EAC2 PO (11:58)
[2021-03-17] MEDS ORDERED: SYMBICORT 80-10.2 GM INH (11:59)
[2021-03-17] MEDS ORDERED: CALCIPOTRIENE60 G1 TOP (12:01)
[2021-03-17] MEDS ORDERED: CEFP200 PO (12:02)
[2021-03-17] MEDS ORDERED: PLAVIX75 MG PO (12:02)
[2021-03-17] MEDS ORDERED: GLUCOSE4 GM PO (12:03)
[2021-03-17] MEDS ORDERED: Colace250 MG PO (12:03)
[2021-03-17] MEDS ORDERED: ENAL10 PO (12:04)
[2021-03-17] MEDS ORDERED: FURO20 PO (12:05)
[2021-03-17] MEDS ORDERED: FLUO.025TO TOP (12:05)
[2021-03-17] MEDS ORDERED: GLUCAGON EMERGEN1 MG SC (12:06)
[2021-03-17] MEDS ORDERED: HYDRA25 PO (12:07)
[2021-03-17] MEDS ORDERED: COMBIVENT RESPIM4 G1 INH (12:08)
[2021-03-17] MEDS ORDERED: LACT PO (12:08)
[2021-03-17] MEDS ORDERED: BASAGLAR K100 UNIT/1 SC (12:08)
[2021-03-17] MEDS ORDERED: LATA.005SO BOTHEYES (12:09)
[2021-03-17] MEDS ORDERED: METO50ER PO (12:09)
[2021-03-17] MEDS ORDERED: METF500 PO (12:09)
[2021-03-17] MEDS ORDERED: ONDA4ODT MM (12:10)
[2021-03-17] MEDS ORDERED: OMEP20ER PO (12:10)
[2021-03-17] MEDS ORDERED: TAMS.4ER PO (12:11)
[2021-03-17] MEDS ORDERED: VEMLIDY25 MG PO (12:11)
[2021-03-17] MEDS ORDERED: OXYC5 PO (12:11)
[2021-03-17] MEDS ORDERED: POTCHL20ER PO (12:11)
[2021-03-17] MEDS ORDERED: LIDO5TO TOP (12:12)
[2021-03-17] MEDS ORDERED: GLIP10 PO (12:12)
--- NOTE | 2021-03-17 12:39 | NUR ---
reviewed pt's home medication list at discharge last admission, spoke with dr. Goyal and current inpatient meds were revised.
--- NOTE | 2021-03-17 13:50 | NUR ---
Ayla Irvin Rn received telephone report at this time. Anticipate transfer of pt to room 356 shortly.
--- NOTE | 2021-03-17 14:38 | NUR ---
PT ARRIVED TO UNIT @ APPROX 1415 VIA WHEELCHAIR FROM PCU. PT WAS ABLE TO STAND AND AMBULATE TO BED INDEPENDENTLY. ON 2 L/MIN O2 VIA NC, SATING ABOVE 90%. PT DENIES ANY SOB, CP, OR DISTRESS. REPORTS SOME PAIN IN HIS BACK AND LEGS. TREATED PER EMAR. PT IS CURRENTLY RESTING IN BED WITH CALL LIGHT WITHIN REACH. WATER PROVIDED. PT ORIENTED TO CALL SYSTEM AND ROOM. STATES FAMILY IS AWARE OF TRANSFER.
--- NOTE | 2021-03-17 17:55 | NUR ---
SHIFT SUMMARY NO ACUTE CHANGES SINCE ARRIVAL TO UNIT. PT IS A&O, CALM AND COOPERATIVE. DENIES ANY DISTRESS AT THIS TIME. RT DID BUMP PT O2 UP TO 3 L/MIN NC. PT SATING ABOVE 90% VIA CONT PULSE OX. REMAINS INDEPENDENT IN THE ROOM, TOLERATING THIS WELL. PT IS CURRENTLY SITTING UP IN BED EATING DINNER, CALL LIHGT WITHIN REACH. CALLS APPROPRIATELY AND MAKES NEEDS KNOWN.
[2021-03-18 04:45] LABS: BASOPHILS ABSOLUTE AUTO 0.09 K/mm3 (0.00-0.23); BASOPHILS PERCENT AUTO 1 % (0-2); EOSINOPHILS ABSOLUTE AUTO 0.18 K/mm3 (0.00-0.68); EOSINOPHILS PERCENT AUTO 2 % (0-6); Hematocrit 37.2 % (37.0-53.0); IMMATURE GRAN ABSOLUTE AUTO 0.06 K/mm3 (0.00-0.10); IMMATURE GRAN PERCENT AUTO 1 % (0-1); LYMPHOCYTES PERCENT AUTO 18 % (21-46); MONOCYTES ABSOLUTE AUTO 1.22 K/mm3 (0.16-1.47); MONOCYTES PERCENT AUTO 11 % (4-13); Mean Corpuscular HGB 22.4 pg (26.0-34.0); Mean Corpuscular HGB Conc 29.6 g/dL (31.5-36.5); Mean Corpuscular Volume 76 fL (80-100); Mean Platelet Volume 10.5 fL (9.1-12.4); NEUTROPHILS ABSOLUTE AUTO 7.83 K/mm3 (1.96-9.15); NEUTROPHILS PERCENT AUTO 69 % (41-73); Platelet Count 282 K/mm3 (150-400); RDW Coefficient Variation 19.1 % (11.7-14.2); RDW Standard Deviation 51.3 fL (35.1-46.3); Red Blood Cell Count 4.92 M/mm3 (4.30-5.90); White Blood Cell Count 11.38 K/mm3 (4.00-11.30)
--- NOTE | 2021-03-18 04:48 | NUR ---
SPEECH THERAPIST EARLY INTERVENTION SUMMARY PT A/O X4. INDEPENDENT IN ROOM. MEDICATED ONCE FOR PAIN OVERNIGHT. SLEPT WELL. PT CONTINUES TO USE 3L O2 VIA NC WHILE AWAKE AND CPAP AT NIGHT SATTING IN THE MID 90'S. DENIES SOB AT REST. NO ACUTE CHANGES. CALL LIGHT WITHIN REACH.
[2021-03-18 05:05] LABS: Alanine Aminotransfer (ALT/SGP 50 U/L (12-78); Albumin, Blood 2.7 g/dL (3.4-5.0); Albumin/Globulin Ratio 0.6 (0.8-1.8); Alk Phos 78 U/L (50-136); Anion Gap 1 mmol/L (6-16); Aspartate Aminotrans (AST/SGOT 13 U/L (12-37); Bilirubin, Total 0.2 mg/dL (0.1-1.0); Blood Urea Nitrogen 34 mg/dL (8-24); Bun/Creatinine Ratio 30.6 (12.0-20.0); CO2, Blood 42 mmol/L (21-32); Calcium, Blood 8.9 mg/dL (8.5-10.1); Chloride, Blood 95 mmol/L (98-108); Creatinine, Blood 1.11 mg/dL (0.60-1.20); Globulin, Blood 4.3 g/dL (2.2-4.0); Glomerular Filtration Rate >60 (60-); Glucose, Blood 105 mg/dL (70-99); Potassium, Blood 3.8 mmol/L (3.5-5.5); Sodium, Blood 138 mmol/L (136-145)
[2021-03-18] MEDS ORDERED: LEVO750 PO (12:08)
[2021-03-18] MEDS ORDERED: PRED20 PO (12:10)
--- NOTE | 2021-03-18 15:01 | NUR ---
PT TO DISCHARGE HOME. IV REMOVED PRIOR TO DC. NO SS OF INFECTION NOTED. NURSE WENT OVER NEW MEDS, EDUCATED REGARDING ABX AND NEW MEDS. [facility] AND PT TO FOLLOW UP WITH PCP. PT WHEELED OUT AND TAKEN HOME BY DAUGHTER.
== END 2021-03-18 14:53 | disposition home health service (06) | DRG 208 ==
LOC: ER 05:05 → MEDS 06:27 → EDBD 06:27 → MEDS 06:27 → ICUW 06:27 → PCU 06:27 → ICUW 07:33 → PCU 17:51 → MEDS 03-17 14:03 → ENPENDDIS 03-18 11:23 → MEDS 03-18 14:53
PROVIDERS: Internal Medicine; Internal Medicine Critical Care Medicine; Student in an Organized Health Care Education/Training Program; ADMIT Internal Medicine
PROC: 5A1935Z Respiratory Ventilation, Less than 24 Consecutive Hours (ICD-10-PCS; principal; 2021-03-16)
PROC: 0BH17EZ Insertion of Endotracheal Airway into Trachea, Via Natural or Artificial Opening (ICD-10-PCS; 2021-03-16)
DX: J96.21 Acute and chronic respiratory failure with hypoxia (principal); I50.23 Acute on chronic systolic (congestive) heart failure; J44.1 Chronic obstructive pulmonary disease with (acute) exacerbation; I11.0 Hypertensive heart disease with heart failure; J96.22 Acute and chronic respiratory failure with hypercapnia; Z20.822 Contact with and (suspected) exposure to COVID-19; I95.2 Hypotension due to drugs; T41.295A Adverse effect of other general anesthetics, initial encounter; I25.10 Atherosclerotic heart disease of native coronary artery without angina pectoris; E78.5 Hyperlipidemia, unspecified; G89.29 Other chronic pain; M54.9 Dorsalgia, unspecified; G47.30 Sleep apnea, unspecified; Z60.2 Problems related to living alone; N40.0 Benign prostatic hyperplasia without lower urinary tract symptoms; E11.42 Type 2 diabetes mellitus with diabetic polyneuropathy; Z95.5 Presence of coronary angioplasty implant and graft; I25.2 Old myocardial infarction; Z86.73 Personal history of transient ischemic attack (TIA), and cerebral infarction without residual deficits; Z99.81 Dependence on supplemental oxygen; Z98.890 Other specified postprocedural states; Z95.1 Presence of aortocoronary bypass graft; Z87.891 Personal history of nicotine dependence; X58.XXXA Exposure to other specified factors, initial encounter
CPT/HCPCS: 31500; 36415; 36600; 51702; 71045; 80047; 80053; 81001; 82550; 82803; 82947; 83605; 83880; 84484; 85014; 85025; 87070; 87205; 93005; 93010; 94002; 94640; 94644; 94660; 94762; 96365-59; 99291-25; 99292; A9270; G0480; J1650; J1940; J1956; J2704; J2930; J3010; U0004

== ENCOUNTER 2021-04-08 15:43 | Emergency (ER) | payer OTHER, MEDICARE ==
[~2021-04-08] VITALS: Ht 188 cm; Wt 115.7 kg
[~2021-04-08 15:43] MED LIST changes: +ACET325 PO; +CAVERJECT20 MCG; +Colace250 MG PO; +ENAL10 PO; +FLUO.025TO TOP; +GLUCAGON EMERGEN1 MG SC; +LACT PO; +LEVO750 PO; +LIDO5TO TOP; +METF500 PO; +OMEP20ER PO; +PLAVIX75 MG PO; +PRED20 PO
[2021-04-08 16:12] LABS: BASOPHILS ABSOLUTE AUTO 0.09 K/mm3 (0.00-0.23); BASOPHILS PERCENT AUTO 1 % (0-2); EOSINOPHILS ABSOLUTE AUTO 0.43 K/mm3 (0.00-0.68); EOSINOPHILS PERCENT AUTO 4 % (0-6); Hematocrit 36.2 % (37.0-53.0); Hemoglobin 10.7 g/dL (13.5-17.5); IMMATURE GRAN ABSOLUTE AUTO 0.05 K/mm3 (0.00-0.10); IMMATURE GRAN PERCENT AUTO 1 % (0-1); LYMPHOCYTES ABSOLUTE AUTO 1.62 K/mm3 (0.84-5.20); LYMPHOCYTES PERCENT AUTO 15 % (21-46); MONOCYTES ABSOLUTE AUTO 1.06 K/mm3 (0.16-1.47); MONOCYTES PERCENT AUTO 10 % (4-13); Mean Corpuscular HGB 22.2 pg (26.0-34.0); Mean Corpuscular HGB Conc 29.6 g/dL (31.5-36.5); Mean Corpuscular Volume 75 fL (80-100); Mean Platelet Volume 10.8 fL (9.1-12.4); NEUTROPHILS ABSOLUTE AUTO 7.46 K/mm3 (1.96-9.15); NEUTROPHILS PERCENT AUTO 70 % (41-73); Platelet Count 258 K/mm3 (150-400); RDW Coefficient Variation 19.8 % (11.7-14.2); RDW Standard Deviation 52.7 fL (35.1-46.3); Red Blood Cell Count 4.83 M/mm3 (4.30-5.90); White Blood Cell Count 10.71 K/mm3 (4.00-11.30)
[2021-04-08 16:26] LABS: Troponin I 0.038 ng/mL (0.000-0.040)
[2021-04-08 16:28] LABS: Alanine Aminotransfer (ALT/SGP 46 U/L (12-78); Albumin, Blood 2.6 g/dL (3.4-5.0); Albumin/Globulin Ratio 0.6 (0.8-1.8); Alk Phos 82 U/L (50-136); Anion Gap 4 mmol/L (6-16); Aspartate Aminotrans (AST/SGOT 22 U/L (12-37); Bilirubin, Total <0.1 mg/dL (0.1-1.0); Blood Urea Nitrogen 20 mg/dL (8-24); CO2, Blood 31 mmol/L (21-32); Calcium, Blood 8.4 mg/dL (8.5-10.1); Chloride, Blood 103 mmol/L (98-108); Creatinine, Blood 0.87 mg/dL (0.60-1.20); Globulin, Blood 4.4 g/dL (2.2-4.0); Glomerular Filtration Rate >60 (60-); Glucose, Blood 94 mg/dL (70-99); Sodium, Blood 138 mmol/L (136-145)
[2021-04-08 16:39] LABS: Base Excess Venous 7.7 mmol/L; Bicarbonate Venous 30.5 mmol/L (24.0-30.0); PCO2 Venous 50.6 mmHg (38-42); PO2 Venous 128 mmHg (38-42); pH Blood Venous 7.41 (7.34-7.37)
[2021-04-08] MEDS ORDERED: Vibramycin100 MG PO (18:43)
[2021-04-08] MEDS ORDERED: Prednisone50 MG PO (18:43)
== END 2021-04-08 19:00 | disposition home or self-care (01) ==
LOC: ER 15:43
PROVIDERS: Emergency Medicine
DX: J44.9 Chronic obstructive pulmonary disease, unspecified (principal); I10 Essential (primary) hypertension; I25.10 Atherosclerotic heart disease of native coronary artery without angina pectoris; F17.210 Nicotine dependence, cigarettes, uncomplicated; Z88.5 Allergy status to narcotic agent; Z88.6 Allergy status to analgesic agent; Z88.8 Allergy status to other drugs, medicaments and biological substances; Z79.899 Other long term (current) drug therapy
CPT/HCPCS: 71045; 80053; 82803; 83880; 84145; 84484; 85025; 85379; 93005; 93010; 96374; 99285-25; A9270; J0360; J1940; J7512

== ENCOUNTER 2021-05-11 01:52 | Inpatient (IN) | payer OTHER, MEDICARE ==
[~2021-05-11] VITALS: Ht 188 cm; Wt 113.4 kg
[~2021-05-11 01:52] MED LIST changes: +Prednisone50 MG PO; +Vibramycin100 MG PO
[2021-05-11 02:06] LABS: BASOPHILS ABSOLUTE AUTO 0.15 K/mm3 (0.00-0.23); BASOPHILS PERCENT AUTO 1 % (0-2); EOSINOPHILS ABSOLUTE AUTO 0.44 K/mm3 (0.00-0.68); EOSINOPHILS PERCENT AUTO 3 % (0-6); Hematocrit 38.5 % (37.0-53.0); Hemoglobin 11.3 g/dL (13.5-17.5); IMMATURE GRAN ABSOLUTE AUTO 0.08 K/mm3 (0.00-0.10); IMMATURE GRAN PERCENT AUTO 1 % (0-1); LYMPHOCYTES ABSOLUTE AUTO 3.47 K/mm3 (0.84-5.20); LYMPHOCYTES PERCENT AUTO 20 % (21-46); MONOCYTES ABSOLUTE AUTO 1.48 K/mm3 (0.16-1.47); MONOCYTES PERCENT AUTO 8 % (4-13); Mean Corpuscular HGB 21.6 pg (26.0-34.0); Mean Corpuscular HGB Conc 29.4 g/dL (31.5-36.5); Mean Corpuscular Volume 74 fL (80-100); Mean Platelet Volume 10.3 fL (9.1-12.4); NEUTROPHILS ABSOLUTE AUTO 12.01 K/mm3 (1.96-9.15); NEUTROPHILS PERCENT AUTO 68 % (41-73); Platelet Count 327 K/mm3 (150-400); RDW Coefficient Variation 19.2 % (11.7-14.2); Red Blood Cell Count 5.23 M/mm3 (4.30-5.90); White Blood Cell Count 17.63 K/mm3 (4.00-11.30)
[2021-05-11 02:14] LABS: PCO2 Arterial 54.1 mmHg (35-45); PO2 Arterial 158 mmHg (80-100); pH Blood Arterial 7.35 (7.35-7.45)
[2021-05-11 02:33] LABS: Alanine Aminotransfer (ALT/SGP 63 U/L (12-78); Albumin, Blood 2.8 g/dL (3.4-5.0); Albumin/Globulin Ratio 0.7 (0.8-1.8); Alk Phos 91 U/L (50-136); Anion Gap 6 mmol/L (6-16); Aspartate Aminotrans (AST/SGOT 31 U/L (12-37); Bilirubin, Total 0.2 mg/dL (0.1-1.0); Blood Urea Nitrogen 18 mg/dL (8-24); Bun/Creatinine Ratio 20.5 (12.0-20.0); CO2, Blood 30 mmol/L (21-32); Calcium, Blood 8.6 mg/dL (8.5-10.1); Chloride, Blood 103 mmol/L (98-108); Creatinine, Blood 0.88 mg/dL (0.60-1.20); Globulin, Blood 4.3 g/dL (2.2-4.0); Glomerular Filtration Rate >60 (60-); Glucose, Blood 190 mg/dL (70-99); Sodium, Blood 139 mmol/L (136-145); Total Protein, Blood 7.1 g/dL (6.4-8.2); Troponin I 0.129 ng/mL (0.000-0.040)
[2021-05-11 03:07] LABS: SARS-Cov-2 (COVID-19) PCR, MMC NEGATIVE (NEGATIVE)
[2021-05-11] MEDS ORDERED: FURO40 PO (04:47)
[2021-05-11] MEDS ORDERED: NITR.4SL SL (04:52)
[2021-05-11] MEDS ORDERED: Fluocinonide15 GM TOP (05:14)
[2021-05-11] MEDS ORDERED: SALONPAS PATCH1 EACH TOP (05:23)
--- NOTE | 2021-05-11 07:45 | NUR ---
PATIENT IS RESTING COMFORRTABLY IN BED RECIEVING BREATHING TX. RESP THERAPY AT BEDSIDE. PT DENIES NEEDS AT THIS TIME. CALL LIGHT IN REACH.
--- NOTE | 2021-05-11 08:30 | NUR ---
PATIENT HAS BEEN OOB TO THE SHOWER WITH PCT. HE IS BACK IN HIS ROOM NOW, STATES HE FEELS "MUCH BETTER." PT HAS COARSE OCCASIONALLY PC WITH THICK WHITE SPUTUM, SPUTUM SAMPLE SENT. BIOX WNL ON 4L VIA NC, PTS HOME DOSE O2 2L.PT DENIES OTHER NEEDS AT THIS TIME. CALL LIGHT IN REACH, WILL CONTINUE TO MONITOR.
--- NOTE | 2021-05-11 10:49 | NUR ---
AM MEDS GIVEN W/O DIFFICULTY. DR. AFROOQ HAS BEEN TO SEE THE PATIENT. PATIENT IS BACK IN BED NOW RESTING WITH THE BI-PAP ON. EXCEDRIN GIVEN FOR HEADACHE, PT DENIES OTHER NEEDS AT THIS TIME. CALL LIGHT IN REACH, WILL CONTINUE TO MONITOR.
--- NOTE | 2021-05-11 17:57 | NUR ---
Patient has done well through out the shift. Oxygen needs began at 4l and I was able to titrate him down to his home dose of 2l via nc. Patient has been independent in the room. He used the bi-pap twice today while he was sleeping, his son brought in his home c-pap. No acute changes this shift, Will report to oncoming RN.
--- NOTE | 2021-05-11 19:15 | NUR ---
REPORT RECEIVED AT BEDSIDE-CARE ASSUMED
--- NOTE | 2021-05-11 20:25 | NUR ---
ASSESSMENT ASSESSMENT DONE AND NOTED IN FLOWSHEET-VITALS STABLE. PT A&O. WATCHING TV. MEDS DONE. PAIN REPORTED DOCUMENTED AND MEDS PER MAR. CONTINUE ASSESSMENTS AND CARE.
--- NOTE | 2021-05-12 01:06 | NUR ---
ASSESS VITALS NOTED-PT RESTING, NO CHANGES.
[2021-05-12 03:35] LABS: BASOPHILS ABSOLUTE AUTO 0.01 K/mm3 (0.00-0.23); BASOPHILS PERCENT AUTO 0 % (0-2); EOSINOPHILS PERCENT AUTO 0 % (0-6); Hematocrit 36.3 % (37.0-53.0); Hemoglobin 10.7 g/dL (13.5-17.5); IMMATURE GRAN PERCENT AUTO 1 % (0-1); LYMPHOCYTES ABSOLUTE AUTO 0.65 K/mm3 (0.84-5.20); LYMPHOCYTES PERCENT AUTO 4 % (21-46); MONOCYTES ABSOLUTE AUTO 0.37 K/mm3 (0.16-1.47); MONOCYTES PERCENT AUTO 2 % (4-13); Mean Corpuscular HGB 21.1 pg (26.0-34.0); Mean Corpuscular HGB Conc 29.5 g/dL (31.5-36.5); Mean Corpuscular Volume 72 fL (80-100); Mean Platelet Volume 10.7 fL (9.1-12.4); NEUTROPHILS ABSOLUTE AUTO 14.78 K/mm3 (1.96-9.15); NEUTROPHILS PERCENT AUTO 93 % (41-73); Platelet Count 324 K/mm3 (150-400); RDW Coefficient Variation 19.1 % (11.7-14.2); RDW Standard Deviation 47.8 fL (35.1-46.3); Red Blood Cell Count 5.06 M/mm3 (4.30-5.90); White Blood Cell Count 15.91 K/mm3 (4.00-11.30)
[2021-05-12 04:58] LABS: Alanine Aminotransfer (ALT/SGP 47 U/L (12-78); Albumin, Blood 2.6 g/dL (3.4-5.0); Albumin/Globulin Ratio 0.6 (0.8-1.8); Alk Phos 80 U/L (50-136); Anion Gap 5 mmol/L (6-16); Aspartate Aminotrans (AST/SGOT 15 U/L (12-37); Bilirubin, Total 0.2 mg/dL (0.1-1.0); Blood Urea Nitrogen 30 mg/dL (8-24); Bun/Creatinine Ratio 31.1 (12.0-20.0); CO2, Blood 29 mmol/L (21-32); Chloride, Blood 100 mmol/L (98-108); Creatinine, Blood 0.96 mg/dL (0.60-1.20); Globulin, Blood 4.3 g/dL (2.2-4.0); Glomerular Filtration Rate >60 (60-); Glucose, Blood 265 mg/dL (70-99); Potassium, Blood 4.5 mmol/L (3.5-5.5); Sodium, Blood 134 mmol/L (136-145); Total Protein, Blood 6.9 g/dL (6.4-8.2)
--- NOTE | 2021-05-12 09:36 | NUR ---
Care Assumed 0700 Pt sitting in bed watching TV. A/O X 4, states correct location, event, and following directions. On 2 L via NC, SPO2 > 90%. Lung sounds with crackles at the bases and coarse/wheeze upper lobes. Calm and coopertive. Reports no pain at this time. Call light within reach.
--- NOTE | 2021-05-12 18:10 | NUR ---
Transfer to 361 at 1712 Report given to CHANDRIKA Aranda. Pt continues to be A/O X 4. Has productive cough and remains on 2 L via NC. Denies pain at this time. Able to walk to wheelchair without assistance. Pt has been able to use in room restroom without assistance and walks in room independently frequently. NSR. VSS. Per Dr. Thurston pt can be medical floor without tele, HR 90's. Calm and cooperative.
--- NOTE | 2021-05-12 18:49 | NUR ---
SHIFT SUMMARY: ASSUMED CARE OF PATIENT UPON HIS TRANSFER FROM ICU AT 1716. A&O X 4, PLEASANT. PLACED ON OXYGEN AT 2 L/MIN NC PER HIS HOME DOSE. INDEPENDENT IN ROOM. C/O HEADACHE; REQUESTED GENECED, SENT REQUEST TO PHARMACY. RETRIEVED DINNER TRAY FROM ICU, GOOD APPETITE. NO OTHER COMPLAINTS.
--- NOTE | 2021-05-13 03:55 | NUR ---
SUMMARY: PT A/OX4, INDEPENDENT IN ROOM AND CALLS APPROPRIATELY TO SPECIFY NEEDS. HE REMAINS ON 2L O2 VIA NC WA AND WAS TITRATED TO 4L BLEED IN VIA CPAP AT HS TO MAINTAIN SPO2 WNL, CONT BIOX INTACT. INSP/EXP WHEEZES AUSCULTATED W/RT PROVIDING BX TX'S. HE CONT'S TO HAVE MOIST, HACKING [employer] CONSULTANT COUGH SO STAFF UNABLE TO OBTAIN SPUTUM SPECIMEN. GENECED AND OXYCODONE RECIEVED PRN FOR TOLERABLE RELIEF OF MIGRAINE, BACK AND GENERALIZED PAIN. BLE EDEMA PERSISTS BUT PT REPORTS SOME IMPROVEMENT. SNACKS PROVIDED PRN AND CBG'S REMAIN ELEVATED, DESPITE SCHEDULED INSULIN, LIKELY IV STEROID INDUCED. HE'S NSR AT 60'S BPM ON TELEMETRY. NO ACUTE CHANGES, VSS/AFEBRILE. WCTM/REPORT TO DAY RN.
[2021-05-13 04:33] LABS: BASOPHILS ABSOLUTE AUTO 0.01 K/mm3 (0.00-0.23); BASOPHILS PERCENT AUTO 0 % (0-2); EOSINOPHILS PERCENT AUTO 0 % (0-6); Hematocrit 35.8 % (37.0-53.0); Hemoglobin 10.5 g/dL (13.5-17.5); IMMATURE GRAN ABSOLUTE AUTO 0.14 K/mm3 (0.00-0.10); IMMATURE GRAN PERCENT AUTO 1 % (0-1); LYMPHOCYTES ABSOLUTE AUTO 0.58 K/mm3 (0.84-5.20); LYMPHOCYTES PERCENT AUTO 4 % (21-46); MONOCYTES ABSOLUTE AUTO 0.54 K/mm3 (0.16-1.47); MONOCYTES PERCENT AUTO 3 % (4-13); Mean Corpuscular HGB 21.4 pg (26.0-34.0); Mean Corpuscular HGB Conc 29.3 g/dL (31.5-36.5); Mean Corpuscular Volume 73 fL (80-100); Mean Platelet Volume 10.6 fL (9.1-12.4); NEUTROPHILS ABSOLUTE AUTO 15.33 K/mm3 (1.96-9.15); NEUTROPHILS PERCENT AUTO 92 % (41-73); Platelet Count 320 K/mm3 (150-400); RDW Coefficient Variation 19.4 % (11.7-14.2); RDW Standard Deviation 49.3 fL (35.1-46.3); Red Blood Cell Count 4.91 M/mm3 (4.30-5.90)
[2021-05-13 04:53] LABS: Alanine Aminotransfer (ALT/SGP 41 U/L (12-78); Albumin, Blood 2.7 g/dL (3.4-5.0); Albumin/Globulin Ratio 0.7 (0.8-1.8); Alk Phos 71 U/L (50-136); Anion Gap 2 mmol/L (6-16); Aspartate Aminotrans (AST/SGOT 11 U/L (12-37); Bilirubin, Total 0.2 mg/dL (0.1-1.0); Blood Urea Nitrogen 38 mg/dL (8-24); Bun/Creatinine Ratio 33.9 (12.0-20.0); CO2, Blood 33 mmol/L (21-32); Calcium, Blood 8.8 mg/dL (8.5-10.1); Chloride, Blood 101 mmol/L (98-108); Creatinine, Blood 1.12 mg/dL (0.60-1.20); Glomerular Filtration Rate >60 (60-); Glucose, Blood 245 mg/dL (70-99); Potassium, Blood 4.8 mmol/L (3.5-5.5); Sodium, Blood 136 mmol/L (136-145); Total Protein, Blood 6.7 g/dL (6.4-8.2)
--- NOTE | 2021-05-13 18:24 | NUR ---
SHIFT SUMMARY: NO ACUTE EVENTS. BREATH SOUNDS A BIT CLEARER TODAY, PRODUCTIVE COUGH, SPUTUM SPECIMEN SENT. WEARING O2 @ 2 L/MIN NC, HAS OWN CPAP AT BEDSIDE AND IS ON CONTINUOUS OXIMETRY. C/O WEBB AND CHRONIC BACK PAIN; MEDICATED PER EMAR WITH ADEQUATE RELIEF. GOOD APPETITE. INDPENDENT IN ROOM. GIVEN PACKET FOR NEW PCP FOR [facility] [employer].
--- NOTE | 2021-05-14 04:37 | NUR ---
SHIFT SUMMARY: PT IS ALERT AND ORIENTED. PT IS CALM AND COOPERATIVE WITH CARE. PT CALLS APPROPRIATELY. PT IS INDEPENTDENT IN THE ROOM. PT REPORTS CHRONIC BACK PAIN ON ONE OCCASION, GAVE PRN OXYCODONE. PT REPORTS INTERMITTENT SOB, BREATHING TREATMENTS NEEDED, CPAP WHILE SLEEPING, SUPPLEMENTAL O2 TO KEEP SATS > 90%. PT DENIES NAUSEA AND VOMITING. NO ACUTE CHANGES OR COMPLICATIONS THIS SHIFT. BED IN LOW POSITION, CALL LIGHT WITHIN REACH, WILL REPORT TO DAY NURSE.
[2021-05-14 04:48] LABS: Hematocrit 35.9 % (37.0-53.0); Hemoglobin 10.6 g/dL (13.5-17.5); Mean Corpuscular HGB 21.6 pg (26.0-34.0); Mean Corpuscular HGB Conc 29.5 g/dL (31.5-36.5); Mean Corpuscular Volume 73 fL (80-100); Mean Platelet Volume 10.8 fL (9.1-12.4); NRBC ABSOLUTE 0.02 K/mm3 (0.00-0.02); NRBC Auto 0.1 /100 WBC (0.0-0.2); Platelet Count 316 K/mm3 (150-400); RDW Coefficient Variation 19.2 % (11.7-14.2); RDW Standard Deviation 48.9 fL (35.1-46.3); White Blood Cell Count 14.16 K/mm3 (4.00-11.30)
[2021-05-14 05:15] LABS: Alanine Aminotransfer (ALT/SGP 43 U/L (12-78); Albumin, Blood 2.6 g/dL (3.4-5.0); Albumin/Globulin Ratio 0.7 (0.8-1.8); Alk Phos 67 U/L (50-136); Anion Gap 5 mmol/L (6-16); Aspartate Aminotrans (AST/SGOT 15 U/L (12-37); Bilirubin, Total 0.2 mg/dL (0.1-1.0); Blood Urea Nitrogen 36 mg/dL (8-24); Bun/Creatinine Ratio 33.3 (12.0-20.0); CO2, Blood 31 mmol/L (21-32); Calcium, Blood 8.4 mg/dL (8.5-10.1); Chloride, Blood 102 mmol/L (98-108); Creatinine, Blood 1.08 mg/dL (0.60-1.20); Globulin, Blood 3.6 g/dL (2.2-4.0); Glomerular Filtration Rate >60 (60-); Glucose, Blood 170 mg/dL (70-99); Potassium, Blood 4.3 mmol/L (3.5-5.5); Sodium, Blood 138 mmol/L (136-145); Total Protein, Blood 6.2 g/dL (6.4-8.2)
[2021-05-14 05:23] LABS: BAND PERCENT MAN 5 % (0-8); BASOPHILS PERCENT MAN 0 % (0-2); EOSINOPHILS PERCENT MAN 0 % (0-6); LYMPHOCYTES ABSOLUTE MAN 1.55 K/mm3 (0.84-5.20); LYMPHOCYTES PERCENT MAN 11 % (21-46); MONOCYTES ABSOLUTE MAN 0.14 K/mm3 (0.16-1.47); MONOCYTES PERCENT MAN 1 % (4-13); NEUTROPHILS ABSOLUTE MAN 12.46 K/mm3 (1.96-9.15); SEG NEUTROPHILS PERCENT MAN 83 % (41-73); TOTAL CELLS COUNTED 100
--- NOTE | 2021-05-14 18:05 | NUR ---
PT ALERT AND ORIENTED X4, MAKES NO COMPLAINTS OF SOB, CHEST PAIN OR PAIN AT THIS TIME. PT REMAINS IND IN ROOM AND ABLE TO MAKE HIS NEEDS KNOWN. PT ON 2L VIA NC AND CPAP AT NIGHT. BED IN LOW POSITION AND CALL LIGHT WITHIN REACH. WILL CONTINUE TO MONITOR.
--- NOTE | 2021-05-15 06:01 | NUR ---
SHIFT SUMMARY: PT IS ALERT AND ORIENTED. PT IS CALM AND COOPERATIVE WITH CARE. PT CALLS APPROPRIATELY. PT IS INDEPENDENT IN THE ROOM. PT REPORTS SOB, 02 2 L, CPAP @ NIGHT KEEPING SATS > 90%. PT REPORTS CHRONIC BACK PAIN, MEDICATING PER EMAR. PT DENIES NAUSEA AND VOMITING. PT SLEPT MUCH OF THE NIGHT WHEN NOT DISTURBED. NO ACUTE CHANGES OR COMPLICATIONS THIS SHIFT. BED IN LOW POSTION, CALL LIGHT WITHIN REACH. WILL REPORT TO DAY NURSE.
--- NOTE | 2021-05-15 18:08 | NUR ---
PATIENT A/OX4, UP INDEPENDENTLY IN ROOM. VSS, ON 2.5LO2 WITH CPAP AT [facility]. LUNGS COARSE, SOB WITH EXERTION. CHRONIC BACK PAIN, OXYCODONE GIVEN TO TREAT. TOLERATING ADA DIET, ACHS BLOOD SUGARS WITH COVERAGE PER SS. PATIENT IS CALM AND COOPERATIVE WITH CARE. CALLS APPROPRIATELY FOR ASSISTANCE.
--- NOTE | 2021-05-16 03:06 | NUR ---
SUMMARY: PT A/OX4, INDEPENDENT AND CALLS APPROPRIATELY TO SPECIFY NEEDS. HE REMAINS ON 2-3L VIA NC AND 4L BLEED IN TO CPAP AT HS W/CONT BIOX INTACT. LS ARE COARSE W/MILD SOB ON EXERTION. GENOCED RECIEVED FOR TOLERABLE RELIEF OF MIGRAINE WEBB AND CHRONIC BACK PAIN BEING TREATED W/OXYCODONE PRN. SNACKS PROVIDED PER REQUEST AND PT TOLERATING ADA DIET. HE REMAINS HYPERTENSIVE AT TIMES W/SCHEDULED BP MEDS RECIEVED PER EMAR. VSS/AFEBRILE, NO ACUTE CHANGES. WCTM AND REPORT TO DAY RN.
[2021-05-16] MEDS ORDERED: IPRAT-ALBUT 0.5-3 ML INH (10:07)
[2021-05-16] MEDS ORDERED: Nicoderm Cq1 EAC1 TOP (10:10)
[2021-05-16] MEDS ORDERED: PRED20 (10:11)
[2021-05-16] MEDS ORDERED: LEVFLO500 PO (10:12)
--- NOTE | 2021-05-16 14:28 | NUR ---
DISCHARGE SUMMARY PT AxOx4. PLEASANT AND COOPERATIVE WITH CARE. PT DISCHARGING HOME TODAY. DC INSTRUCTIONS DISCUSSED WITH PATIENT INCLUDING FOLLOWING UP WITH NEW PCP, DC MEDICATIONS AND PATIENT EDUCATION. PT VERBALIZES UNDERSTANDING. DENIES ANY FURTHER QUESTIONS AT THIS TIME. VITALS REVIEWED. PT SAFELY ESCORTED OUT VIA WC WITH SON AND PRODUCTION TRUCK DRIVER.
== END 2021-05-16 14:28 | disposition home or self-care (01) | DRG 189 ==
LOC: ER 01:52 → ICUE 03:24 → ICUW 03:24 → ICUE 04:26 → ICUW 05-12 13:55 → ICUE 05-12 13:56 → MEDS 05-12 17:17
PROVIDERS: Emergency Medicine; Internal Medicine; ADMIT Internal Medicine
PROC: 5A09457 Assistance with Respiratory Ventilation, 24-96 Consecutive Hours, Continuous Positive Airway Pressure (ICD-10-PCS; principal; 2021-05-11)
DX: J96.21 Acute and chronic respiratory failure with hypoxia (principal); I21.A1 Myocardial infarction type 2; E87.2 Acidosis; I50.42 Chronic combined systolic (congestive) and diastolic (congestive) heart failure; I11.0 Hypertensive heart disease with heart failure; J96.22 Acute and chronic respiratory failure with hypercapnia; I25.10 Atherosclerotic heart disease of native coronary artery without angina pectoris; Z20.822 Contact with and (suspected) exposure to COVID-19; E78.5 Hyperlipidemia, unspecified; G47.33 Obstructive sleep apnea (adult) (pediatric); M54.5 Low back pain; E11.40 Type 2 diabetes mellitus with diabetic neuropathy, unspecified; G89.29 Other chronic pain; T38.0X5A Adverse effect of glucocorticoids and synthetic analogues, initial encounter; D72.829 Elevated white blood cell count, unspecified; Z86.73 Personal history of transient ischemic attack (TIA), and cerebral infarction without residual deficits; I25.2 Old myocardial infarction; Z87.11 Personal history of peptic ulcer disease; Z99.89 Dependence on other enabling machines and devices; Z95.5 Presence of coronary angioplasty implant and graft; Z98.890 Other specified postprocedural states; Z87.891 Personal history of nicotine dependence; Z88.5 Allergy status to narcotic agent; Z88.8 Allergy status to other drugs, medicaments and biological substances; Z91.041 Radiographic dye allergy status; Z79.84 Long term (current) use of oral hypoglycemic drugs; Z79.899 Other long term (current) drug therapy; Z99.81 Dependence on supplemental oxygen
CPT/HCPCS: 36415; 36600; 71045; 80053; 82803; 82947; 83605; 83880; 84484; 85025; 87040; 87070; 87077; 87186; 87205; 93005; 93010; 94640; 94644; 94660; 94664; 94667; 94668; 94761; 94762; 96374; 99285-25; A9270; J1650; J1885; J2920; J2930; J7512; U0004

== ENCOUNTER 2021-08-29 23:06 | Inpatient (IN) | payer OTHER ==
[~2021-08-29] VITALS: Ht 190.5 cm; Wt 111.6 kg
[~2021-08-29 23:06] MED LIST changes: +ATOR80 PO; +FURO40 PO; +IPRAT-ALBUT 0.5-3 ML INH; +LEVFLO500 PO; +NITR.4SL SL; +Nicoderm Cq1 EAC1 TOP; +PRED20; +SALONPAS PATCH1 EACH TOP
[2021-08-29 23:22] LABS: PO2 Arterial 156 mmHg (80-100); pH Blood Arterial 7.29 (7.35-7.45)
[2021-08-29 23:28] LABS: BASOPHILS ABSOLUTE AUTO 0.17 K/mm3 (0.00-0.23); BASOPHILS PERCENT AUTO 1 % (0-2); EOSINOPHILS ABSOLUTE AUTO 0.49 K/mm3 (0.00-0.68); EOSINOPHILS PERCENT AUTO 2 % (0-6); Hematocrit 39.2 % (37.0-53.0); Hemoglobin 11.7 g/dL (13.5-17.5); IMMATURE GRAN ABSOLUTE AUTO 0.15 K/mm3 (0.00-0.10); IMMATURE GRAN PERCENT AUTO 1 % (0-1); LYMPHOCYTES PERCENT AUTO 22 % (21-46); MONOCYTES ABSOLUTE AUTO 1.75 K/mm3 (0.16-1.47); MONOCYTES PERCENT AUTO 8 % (4-13); Mean Corpuscular HGB 22.4 pg (26.0-34.0); Mean Corpuscular HGB Conc 29.8 g/dL (31.5-36.5); Mean Corpuscular Volume 75 fL (80-100); Mean Platelet Volume 10.6 fL (9.1-12.4); NEUTROPHILS ABSOLUTE AUTO 14.09 K/mm3 (1.96-9.15); NEUTROPHILS PERCENT AUTO 66 % (41-73); Platelet Count 442 K/mm3 (150-400); RDW Coefficient Variation 18.7 % (11.7-14.2); RDW Standard Deviation 50.6 fL (35.1-46.3); Red Blood Cell Count 5.23 M/mm3 (4.30-5.90); White Blood Cell Count 21.25 K/mm3 (4.00-11.30)
[2021-08-29 23:50] LABS: Alanine Aminotransfer (ALT/SGP 33 U/L (12-78); Albumin, Blood 2.6 g/dL (3.4-5.0); Albumin/Globulin Ratio 0.6 (0.8-1.8); Alk Phos 88 U/L (50-136); Anion Gap 6 mmol/L (6-16); Aspartate Aminotrans (AST/SGOT 24 U/L (12-37); Bilirubin, Total 0.2 mg/dL (0.1-1.0); Blood Urea Nitrogen 25 mg/dL (8-24); CO2, Blood 27 mmol/L (21-32); Calcium, Blood 8.5 mg/dL (8.5-10.1); Chloride, Blood 104 mmol/L (98-108); Globulin, Blood 4.7 g/dL (2.2-4.0); Glomerular Filtration Rate >60 (60-); Glucose, Blood 333 mg/dL (70-99); Magnesium, Blood 1.8 mg/dL (1.6-2.4); Sodium, Blood 137 mmol/L (136-145); Total Protein, Blood 7.3 g/dL (6.4-8.2)
[2021-08-30 01:35] LABS: Influenza A, PCR NEGATIVE (NEGATIVE); Influenza B, PCR NEGATIVE (NEGATIVE); Resp Syncytial Virus, PCR NEGATIVE (NEGATIVE); SARS-Cov-2 (COVID-19) PCR, MMC NEGATIVE (NEGATIVE)
--- NOTE | 2021-08-30 03:05 | NUR ---
PATIENT ARRIVED FROM ED VIA STRETCHER, ALERT AND ORIENTATED X 4, ON 3L NC ABLE TO SLIDE TO BED, TELEMETRY APPLIED, CONT. POLST OXIMETRY, VITALS OBTAIN, CONSENTS OBTAINED, AND ADMISSION COMPELTED. PATIENT SKIN IS INTACT, LUNGS ARE COARSE WITH FINE CRACKLES AT THE BASES, EXREMITIES X 4, +1 EDEMATEOUS, TATOOS NOTED, SKIN IS DRY INTACT, FLAKY BILATERAL FEET WITH CRUMBLED TOE NAILS, MISSING FINGER NAIL ON LEFT POINTER FINGER, 20 GAUGE PIV IN THE LAC PATENT FLUSHED, CPAP IN ROOM, PATIENT USES CPAP 2 LITER BLEED AT HOME AND 1-2 NC OXYGEN PRN AT BASELINE. CALL LIGHT WITHIN REACH, SAFETY, MEDICATIONS AND ROOM ORIENTATION REVIEWED, SAFETY SOCKS ON.
[2021-08-30 03:36] LABS: BASOPHILS ABSOLUTE AUTO 0.04 K/mm3 (0.00-0.23); BASOPHILS PERCENT AUTO 0 % (0-2); EOSINOPHILS PERCENT AUTO 0 % (0-6); Hematocrit 36.3 % (37.0-53.0); Hemoglobin 10.7 g/dL (13.5-17.5); IMMATURE GRAN ABSOLUTE AUTO 0.05 K/mm3 (0.00-0.10); IMMATURE GRAN PERCENT AUTO 0 % (0-1); LYMPHOCYTES ABSOLUTE AUTO 0.37 K/mm3 (0.84-5.20); LYMPHOCYTES PERCENT AUTO 3 % (21-46); MONOCYTES ABSOLUTE AUTO 0.14 K/mm3 (0.16-1.47); MONOCYTES PERCENT AUTO 1 % (4-13); Mean Corpuscular HGB 21.9 pg (26.0-34.0); Mean Corpuscular HGB Conc 29.5 g/dL (31.5-36.5); Mean Corpuscular Volume 74 fL (80-100); Mean Platelet Volume 10.9 fL (9.1-12.4); NEUTROPHILS ABSOLUTE AUTO 13.06 K/mm3 (1.96-9.15); NEUTROPHILS PERCENT AUTO 96 % (41-73); Platelet Count 337 K/mm3 (150-400); RDW Coefficient Variation 18.7 % (11.7-14.2); RDW Standard Deviation 49.7 fL (35.1-46.3); Red Blood Cell Count 4.88 M/mm3 (4.30-5.90); White Blood Cell Count 13.66 K/mm3 (4.00-11.30)
[2021-08-30 03:54] LABS: Alanine Aminotransfer (ALT/SGP 36 U/L (12-78); Albumin, Blood 2.4 g/dL (3.4-5.0); Albumin/Globulin Ratio 0.5 (0.8-1.8); Alk Phos 80 U/L (50-136); Anion Gap 8 mmol/L (6-16); Aspartate Aminotrans (AST/SGOT 44 U/L (12-37); Bilirubin, Total 0.2 mg/dL (0.1-1.0); Blood Urea Nitrogen 29 mg/dL (8-24); Bun/Creatinine Ratio 29.5 (12.0-20.0); CO2, Blood 27 mmol/L (21-32); Calcium, Blood 8.7 mg/dL (8.5-10.1); Chloride, Blood 102 mmol/L (98-108); Creatinine, Blood 0.98 mg/dL (0.60-1.20); Globulin, Blood 4.4 g/dL (2.2-4.0); Glomerular Filtration Rate >60 (60-); Glucose, Blood 303 mg/dL (70-99); Potassium, Blood 4.7 mmol/L (3.5-5.5); Sodium, Blood 137 mmol/L (136-145); Total Protein, Blood 6.8 g/dL (6.4-8.2)
[2021-08-30 05:00] LABS: International Normalized Ratio 1.09; Prothrombin Time Results 11.4 Sec (9.7-11.5)
--- NOTE | 2021-08-30 05:44 | NUR ---
HEPARIN GTT STARTED PER ORDER AND LABS DRAWN PRIOR TO START, VERIFIED BY 2ND RN BECKIE.
--- NOTE | 2021-08-30 10:12 | NUR ---
CARE ASSUMPTION THIS RN ASSUMED FROM OF PATIENT FROM MARKY Acuna RN, AT 0700. PATIENT IS A/OX4. VSS. TELE AFIB 80S. SPO2 >90% ON 5L NC. NO CHEST PAIN. PATIENT REPORTS OF A HEADACHE AND BACK PAIN THIS AM. PATIENT RECEIVED PAIN MED FROM EMAR. PATIENT LUNG SOUNDS COARSE, CONGESTED; AND CRACKLES IN LOWER BASE. PATIENT HAS A CROUPY WET COUGH THAT IS NONPRODUCTIVE. MD CHACON IN TO SEE PATIENT THIS AM AND PATIENT WILL HAVE AN ANGIO LATER THIS AFTERNOON. PATIENT REMIANS NPO. PATIENT CAN USE BEDSIDE URINAL. BED IN LOWEST POSITION AND CALL LIGHT WITHIN REACH. WILL CONTINUE TO MONITOR AND PROVIDE CARE.
--- NOTE | 2021-08-30 17:35 | NUR ---
SHIFT SUMMARY PATIENT A/OX4. VSS. SPO2 >90% ON 2L NC. PATIENT HAS A RIGHT RADIAL ACESS SITE. A STENT TO MID RAC. NO HAMTOMA SWELLING BLEEDING OR REDNESS. CUFF IS FULLY DEFLATED WITH A BANDAGE IN PLACE. TRBAND IN PLACE. EDUCATION PROVIDED ON SITE MANAGMENT AND TO NOT USE THAT ARM. PATIENT REPORTS NO CHEST PAIN OR SOB. PATIENT REPORTS CHRONIC BACK PAIN AND HEADACHE, PATIENT RECEIVES PAIN MEDS PER EMAR. CALL LIGHT WITHIN REACH AND PATIENT SITTING IN CHAIR AT BEDSIDE. WILL CONTINUE TO MONITOR AND PROVIDE CARE UNTIL HAND OFF WITH NEXT SHIFT.
--- NOTE | 2021-08-31 00:35 | NUR ---
PATIENT BLOOD PRESSURE 192/91 (120) MAP, HR 81 SLEEPING WITHOUT SYMPTOMS, NOTICED LONG PAUSES OF APNEA WITH DESATURATIONS WITH CPAP AT PRESSURE 5 2L BLEED 96-77% CALLED RESPIRATORY WHO CHANGED THE SETTINGS TO PRESSURE 10 2L BLEED PATIENT IS STILL HAVING APNEA WITH DESATURATIONS TO 85.
[2021-08-31 04:09] LABS: BASOPHILS PERCENT AUTO 1 % (0-2); EOSINOPHILS ABSOLUTE AUTO 0.23 K/mm3 (0.00-0.68); EOSINOPHILS PERCENT AUTO 2 % (0-6); Hematocrit 34.8 % (37.0-53.0); Hemoglobin 10.3 g/dL (13.5-17.5); IMMATURE GRAN ABSOLUTE AUTO 0.04 K/mm3 (0.00-0.10); IMMATURE GRAN PERCENT AUTO 0 % (0-1); LYMPHOCYTES PERCENT AUTO 15 % (21-46); MONOCYTES ABSOLUTE AUTO 1.24 K/mm3 (0.16-1.47); MONOCYTES PERCENT AUTO 10 % (4-13); Mean Corpuscular HGB 21.9 pg (26.0-34.0); Mean Corpuscular HGB Conc 29.6 g/dL (31.5-36.5); Mean Corpuscular Volume 74 fL (80-100); NEUTROPHILS ABSOLUTE AUTO 8.48 K/mm3 (1.96-9.15); NEUTROPHILS PERCENT AUTO 72 % (41-73); Platelet Count 330 K/mm3 (150-400); RDW Standard Deviation 49.4 fL (35.1-46.3); White Blood Cell Count 11.89 K/mm3 (4.00-11.30)
[2021-08-31 04:30] LABS: Albumin, Blood 2.3 g/dL (3.4-5.0); Anion Gap 6 mmol/L (6-16); Blood Urea Nitrogen 31 mg/dL (8-24); Bun/Creatinine Ratio 31.8 (12.0-20.0); CO2, Blood 31 mmol/L (21-32); Calcium, Blood 8.8 mg/dL (8.5-10.1); Chloride, Blood 102 mmol/L (98-108); Creatinine, Blood 0.98 mg/dL (0.60-1.20); Glomerular Filtration Rate >60 (60-); Glucose, Blood 116 mg/dL (70-99); Phosphorus, Blood 4.2 mg/dL (2.5-4.9); Potassium, Blood 3.4 mmol/L (3.5-5.5); Sodium, Blood 139 mmol/L (136-145)
--- NOTE | 2021-08-31 14:56 | NUR ---
DISCHARGE NOTE DISCHARGE INSTRUCTIONS GIVEN TO PT, IN PT'S POSSESSION AT TIME OF DISCHARGE. ALL PERSONAL BELONGINGS WERE IN PT'S POSSESSION AT TIME OF DISCHARGE. PT'S QUESTIONS AND CONCERNS WERE ADDRESSED, PT EXPRESSED SATISFACTION WITH DISCUSSION. PT WAS DISCHARGED VIA WHEELCHAIR TO PERSONAL VEHICLE AND IN THE CARE OF A FAMILY MEMBER.
== END 2021-08-31 14:15 | disposition home or self-care (01) | DRG 246 ==
LOC: ER 23:06 → PCU 08-30 00:28
PROVIDERS: Emergency Medicine; Family Medicine; ADMIT Internal Medicine
PROC: 4A023N7 Measurement of Cardiac Sampling and Pressure, Left Heart, Percutaneous Approach (ICD-10-PCS; principal; 2021-08-30)
PROC: 027034Z Dilation of Coronary Artery, One Artery with Drug-eluting Intraluminal Device, Percutaneous Approach (ICD-10-PCS; 2021-08-30)
PROC: B2111ZZ Fluoroscopy of Multiple Coronary Arteries using Low Osmolar Contrast (ICD-10-PCS; 2021-08-30)
DX: T82.855A Stenosis of coronary artery stent, initial encounter (principal); I21.4 Non-ST elevation (NSTEMI) myocardial infarction; I50.23 Acute on chronic systolic (congestive) heart failure; J96.01 Acute respiratory failure with hypoxia; I21.A9 Other myocardial infarction type; B18.1 Chronic viral hepatitis B without delta-agent; E87.2 Acidosis; I47.2 Ventricular tachycardia; Z68.41 Body mass index [BMI] 40.0-44.9, adult; Z20.822 Contact with and (suspected) exposure to COVID-19; E66.01 Morbid (severe) obesity due to excess calories; D63.8 Anemia in other chronic diseases classified elsewhere; G47.33 Obstructive sleep apnea (adult) (pediatric); J44.9 Chronic obstructive pulmonary disease, unspecified; H40.9 Unspecified glaucoma; F17.200 Nicotine dependence, unspecified, uncomplicated; T38.3X5A Adverse effect of insulin and oral hypoglycemic [antidiabetic] drugs, initial encounter; N40.0 Benign prostatic hyperplasia without lower urinary tract symptoms; N52.9 Male erectile dysfunction, unspecified; Z95.5 Presence of coronary angioplasty implant and graft; D72.828 Other elevated white blood cell count; I11.0 Hypertensive heart disease with heart failure; I34.0 Nonrheumatic mitral (valve) insufficiency; Z91.040 Latex allergy status; Z88.5 Allergy status to narcotic agent; Z88.8 Allergy status to other drugs, medicaments and biological substances; Z91.041 Radiographic dye allergy status; Z86.73 Personal history of transient ischemic attack (TIA), and cerebral infarction without residual deficits; E11.40 Type 2 diabetes mellitus with diabetic neuropathy, unspecified; Z79.899 Other long term (current) drug therapy
CPT/HCPCS: 0241U; 36415; 36600; 71045; 80053; 80069; 82803; 82947; 83036; 83605; 83735; 83880; 84145; 84484; 85025; 85347; 85610; 85730; 87040; 93005; 93010; 93306; 93458; 93571; 94640; 94660; 94762; 96365; 96375; 99152; 99153; 99291-25; A9270; C1769; C1874; C1887; C1894; C9600; J0360; J1200; J1644; J1720; J1815; J1940; J1956; J2250; J3010; J7030; J7050; Q9967

== ENCOUNTER 2021-09-03 04:47 | Inpatient (IN) | payer OTHER ==
[~2021-09-03] VITALS: Ht 188 cm; Wt 114.2 kg
[2021-09-03 05:06] LABS: BASOPHILS PERCENT AUTO 1 % (0-2); EOSINOPHILS ABSOLUTE AUTO 0.23 K/mm3 (0.00-0.68); EOSINOPHILS PERCENT AUTO 2 % (0-6); Hematocrit 36.2 % (37.0-53.0); Hemoglobin 10.8 g/dL (13.5-17.5); IMMATURE GRAN ABSOLUTE AUTO 0.07 K/mm3 (0.00-0.10); IMMATURE GRAN PERCENT AUTO 1 % (0-1); LYMPHOCYTES ABSOLUTE AUTO 1.39 K/mm3 (0.84-5.20); LYMPHOCYTES PERCENT AUTO 12 % (21-46); MONOCYTES ABSOLUTE AUTO 0.95 K/mm3 (0.16-1.47); MONOCYTES PERCENT AUTO 8 % (4-13); Mean Corpuscular HGB 22.4 pg (26.0-34.0); Mean Corpuscular HGB Conc 29.8 g/dL (31.5-36.5); Mean Corpuscular Volume 75 fL (80-100); Mean Platelet Volume 10.9 fL (9.1-12.4); NEUTROPHILS ABSOLUTE AUTO 9.31 K/mm3 (1.96-9.15); NEUTROPHILS PERCENT AUTO 77 % (41-73); Platelet Count 377 K/mm3 (150-400); RDW Coefficient Variation 18.6 % (11.7-14.2); Red Blood Cell Count 4.83 M/mm3 (4.30-5.90); White Blood Cell Count 12.05 K/mm3 (4.00-11.30)
[2021-09-03 05:37] LABS: Alanine Aminotransfer (ALT/SGP 75 U/L (12-78); Albumin, Blood 2.3 g/dL (3.4-5.0); Albumin/Globulin Ratio 0.5 (0.8-1.8); Alk Phos 79 U/L (50-136); Anion Gap 4 mmol/L (6-16); Aspartate Aminotrans (AST/SGOT 79 U/L (12-37); Bilirubin, Total 0.4 mg/dL (0.1-1.0); Blood Urea Nitrogen 28 mg/dL (8-24); Bun/Creatinine Ratio 27.7 (12.0-20.0); CO2, Blood 31 mmol/L (21-32); Calcium, Blood 8.5 mg/dL (8.5-10.1); Chloride, Blood 102 mmol/L (98-108); Creatinine, Blood 1.01 mg/dL (0.60-1.20); Globulin, Blood 4.4 g/dL (2.2-4.0); Glomerular Filtration Rate >60 (60-); Glucose, Blood 340 mg/dL (70-99); Magnesium, Blood 2.1 mg/dL (1.6-2.4); Potassium, Blood 4.8 mmol/L (3.5-5.5); Sodium, Blood 137 mmol/L (136-145); Total Protein, Blood 6.7 g/dL (6.4-8.2)
[2021-09-03 05:48] LABS: Troponin I 0.835 ng/mL (0.000-0.040)
[2021-09-03 06:04] LABS: Base Excess Venous 6.7 mmol/L; Bicarbonate Venous 28.9 mmol/L (24.0-30.0); PO2 Venous 36.2 mmHg (38-42); pH Blood Venous 7.38 (7.34-7.37)
[2021-09-03 09:12] LABS: International Normalized Ratio 1.14; Prothrombin Time Results 11.9 Sec (9.7-11.5)
[2021-09-03 11:39] LABS: Influenza A, PCR NEGATIVE (NEGATIVE); Influenza B, PCR NEGATIVE (NEGATIVE); Resp Syncytial Virus, PCR NEGATIVE (NEGATIVE); SARS-Cov-2 (COVID-19) PCR, MMC NEGATIVE (NEGATIVE)
--- NOTE | 2021-09-03 13:56 | NUR ---
PT ARRIVED IN THE ROOM VIA STRETCHER PT WAS ABLE TO STAND TRANSFER TO BED WITH NO ISSUES. ALERT AND ORIENTED X4. WAS ON BIPAP UPON ARRIVAL VITALS HRR SINUS 80'S, BP SYSTOLIC 150'S, SATS ABOVE 95%, AFEBRILE. C/O CHRONIC BACK PAIN ZULETA BERNADETTE ARCINIEGA TO RESUME HOME PAIN MEDICINE PT WAS MEDICATED AND WAS EFFECTIVE. CARDIOLOGISTS CONSULTED WELL FOR ELEVATED TROPONIN, TROPONIN TRENDING DOWN, DIDNT HAVE ANY CHEST PAIN SINCE ARRIVAL TO THE UNIT. PT IS NOW EATING LUNCH, NO COMPLAINS. ABLE TO MAKE NEEDS KNOWN, CALL LIGHTS WITHIN REACH
--- NOTE | 2021-09-03 16:51 | NUR ---
PATIENT REQUESTED THAT ANOTHER IV BE PLACED BECAUSE THE ONE IN HIS AC WAS "BEEPING TOO MUCH". OFFERED TO PLACE ARMBOARD OR TOWEL. HE STATED THAT HE WANTED TO BE ABLE TO BEND HIS ARMS WHILE HE IS EATING. IV PLACED TO PATIENT'S LEFT WRIST. PATIENT TOLERATED WELL.
--- NOTE | 2021-09-03 18:02 | NUR ---
PT SUMMARY: NO OTHER ISSUES REPORTED SINCE TRANSPORTED. NO CHEST PAIN REPORTED TROPONIN HAS BEEN TRENDING DOWN LAST WAS 0.4, VITALS HAS BEEN STABLE. PT HAS BEEN ON 2L OF O2 VIA NASAL CANNULA, MILD SOB WITH EXERTION. SBA FOR TRANSFERS, USES URINAL FOR VOIDING. WAS GIVEN PAIN MEDS X1 FOR BACK PAIN AND WAS EFFECTIVE. HEPARIN GTT REMAINED RUNNING AT 15U/KG/HR NO CHANGES PER PHARMACY PROTOCOL. NO OTHER ISSEUS REPORTED FOR THE SHIFT, PT CALLS APPROPRIATELY ABLE TO MAKE NEED KNOWN WILL MONITOR
[2021-09-04 04:21] LABS: Base Excess Venous 7.4 mmol/L; Bicarbonate Venous 30.9 mmol/L (24.0-30.0); PCO2 Venous 35.3 mmHg (38-42); PO2 Venous 111 mmHg (38-42); pH Blood Venous 7.54 (7.34-7.37)
[2021-09-04 04:49] LABS: Anion Gap 4 mmol/L (6-16); Blood Urea Nitrogen 32 mg/dL (8-24); Bun/Creatinine Ratio 30.2 (12.0-20.0); CO2, Blood 30 mmol/L (21-32); Calcium, Blood 8.4 mg/dL (8.5-10.1); Chloride, Blood 103 mmol/L (98-108); Creatinine, Blood 1.06 mg/dL (0.60-1.20); Glomerular Filtration Rate >60 (60-); Glucose, Blood 84 mg/dL (70-99); Potassium, Blood 3.6 mmol/L (3.5-5.5); Sodium, Blood 137 mmol/L (136-145)
--- NOTE | 2021-09-04 05:58 | NUR ---
SHIFT SUMMARY ASUMED ARE OF PT AT 1900. PT IS A/OX4. HEART SOUNDS REGULAR, LUNG SOUNDS ARE TIGHT AND COURSE AT THE BASES. PT WORE 2L NC AND HIS BIPAP DURING THE NIGHT. PT REMAINED ABOVE 90% SATURTATIONS T/O THE NIGHT. PT HAS A COURSE WET COUGH, PT STATES HE HAS HAD THIS COUGH FOR A WHILE NOW. PT WAS A SBA TO THE BATHROOM. CALL LIGHT IN REACH, BED IN LOWEST POSITION.
--- NOTE | 2021-09-04 17:14 | NUR ---
PT SUMMARY: PT TRANSITIONED TO MEDICAL STATUS WITH TELE. NO EPISODES OF CHEST PAIN FOR THE SHIFT, HEPARIN DC'D. VITALS HAS BEEN STABLE. PT C/O MILD NEUROPATHIC PAIN ON RIGHT ARM PAIN MEDS GIVEN X2 AND WAS EFFECTIVE. PT WAS ABLE TO AMBULATE TO THE BATHROOM WITH BOWEL MOVEMENTS. PT REMAINED ALERT AND ORIENTED ABLE TO MAKE NEEDS KNOWN. PT ON FLUID RESTRICTION 1200MLS/DAY PT COMPLIANT. NO OTHER ISSUES ENCOUNTERED FOR THE SHIFT, WILL REPORT TO ONCOMING SHIFT
[2021-09-05 04:26] LABS: Anion Gap 3 mmol/L (6-16); Blood Urea Nitrogen 25 mg/dL (8-24); Bun/Creatinine Ratio 23.1 (12.0-20.0); CO2, Blood 33 mmol/L (21-32); Calcium, Blood 8.1 mg/dL (8.5-10.1); Chloride, Blood 102 mmol/L (98-108); Creatinine, Blood 1.08 mg/dL (0.60-1.20); Glomerular Filtration Rate >60 (60-); Glucose, Blood 207 mg/dL (70-99); Potassium, Blood 3.8 mmol/L (3.5-5.5); Sodium, Blood 138 mmol/L (136-145)
--- NOTE | 2021-09-05 05:12 | NUR ---
PATIENT ALERT AND ORIENTATED ABLE TO MAKE NEEDS KNOWN, CALL LIGHT WITHIN REACH, NO NEW EVENTS OVERNIGHT.
--- NOTE | 2021-09-05 16:48 | NUR ---
PT SUMMARY: NO ACUTE CHANGE FOR THE SHIFT, NO CHEST PAIN REPORTED, VITALS HAS BEEN STABLE. PT C/O BURNING PAIN IN RIGHT WRIST POST ANGIO ACCESS SITE PROVIDER AWARE, TO MONITOR IF WORSENS. PT HAD 4 BEATS RUN OF VTACH PT ASYMPTOMATIC NO COMPLAINS. FF-UP LABS IN AM, POSSIBLE DC IN AM. PT HAD A SHOWER TODAY PT STATED HE FELT MUCH BETTER AFTER, HAD A WALK AROUND THE UNIT TOLERATED WELL. PAIN MEDS GIVEN TWICE FOR BACK AND LEG PAIN. PT ABLE TO MAKE NEEDS KNOWN, WILL REPORT TO ONCOMING SHIFT
[2021-09-06 05:17] LABS: Anion Gap 3 mmol/L (6-16); Blood Urea Nitrogen 21 mg/dL (8-24); Bun/Creatinine Ratio 20.8 (12.0-20.0); CO2, Blood 35 mmol/L (21-32); Calcium, Blood 8.7 mg/dL (8.5-10.1); Chloride, Blood 101 mmol/L (98-108); Creatinine, Blood 1.01 mg/dL (0.60-1.20); Glomerular Filtration Rate >60 (60-); Glucose, Blood 247 mg/dL (70-99); Potassium, Blood 3.5 mmol/L (3.5-5.5); Sodium, Blood 139 mmol/L (136-145)
--- NOTE | 2021-09-06 07:53 | NUR ---
INITIAL ASSESSMENT: Patient is awake sitting on the edge of the bed. Alert and oriented. Pt C/O 08/07 lower back pain he states is chronic, oxycodone given. Pt also C/O WEBB, tyelnol given. HRR. LS Dim in the bases, pt has coarse occasionally PC, he states guy sputum. BT+. PPP. VSS. AM meds given with a sip of water. Pt denies other needs at this time. Call light in reach. Will continue to monitor.
[2021-09-06] MEDS ORDERED: FLUTICASONE-SA1 EAC1 INH (13:47)
[2021-09-06] MEDS ORDERED: GUAI600T33 PO (13:48)
[2021-09-06] MEDS ORDERED: HUMULIN R100 UNIT/2 IV (13:53)
[2021-09-06] MEDS ORDERED: LEVO750 PO (13:54)
[2021-09-06] MEDS ORDERED: PANT40 PO (13:55)
[2021-09-06] MEDS ORDERED: ENTRESTO 24 MG1 EACH PO (13:56)
[2021-09-06] MEDS ORDERED: VISBIOME 112.51 EACH PO (13:56)
--- NOTE | 2021-09-06 14:49 | NUR ---
Discharge: [facility] Discharge instructions and prescriptions reviewed with patient, he verbalizes understanding. Aviva Brady from care management working on getting the patient a new C-Pap, she states he is okay to DC and she will call with an update.
== END 2021-09-06 14:52 | disposition home or self-care (01) | DRG 280 ==
LOC: ER 04:47 → PCU 04:48
PROVIDERS: Internal Medicine; Student in an Organized Health Care Education/Training Program; ADMIT Family Medicine
PROC: 5A09457 Assistance with Respiratory Ventilation, 24-96 Consecutive Hours, Continuous Positive Airway Pressure (ICD-10-PCS; principal; 2021-09-04)
DX: I11.0 Hypertensive heart disease with heart failure (principal); I50.43 Acute on chronic combined systolic (congestive) and diastolic (congestive) heart failure; I21.4 Non-ST elevation (NSTEMI) myocardial infarction; J96.21 Acute and chronic respiratory failure with hypoxia; J96.22 Acute and chronic respiratory failure with hypercapnia; J18.9 Pneumonia, unspecified organism; J44.1 Chronic obstructive pulmonary disease with (acute) exacerbation; E87.2 Acidosis; B18.1 Chronic viral hepatitis B without delta-agent; Z20.822 Contact with and (suspected) exposure to COVID-19; I25.10 Atherosclerotic heart disease of native coronary artery without angina pectoris; E78.5 Hyperlipidemia, unspecified; G89.29 Other chronic pain; M54.9 Dorsalgia, unspecified; J44.9 Chronic obstructive pulmonary disease, unspecified; G47.33 Obstructive sleep apnea (adult) (pediatric); E11.65 Type 2 diabetes mellitus with hyperglycemia; D72.829 Elevated white blood cell count, unspecified; E11.42 Type 2 diabetes mellitus with diabetic polyneuropathy; D63.8 Anemia in other chronic diseases classified elsewhere; N40.0 Benign prostatic hyperplasia without lower urinary tract symptoms; K21.9 Gastro-esophageal reflux disease without esophagitis; I34.0 Nonrheumatic mitral (valve) insufficiency; H40.9 Unspecified glaucoma; I42.9 Cardiomyopathy, unspecified; E66.01 Morbid (severe) obesity due to excess calories; Z98.890 Other specified postprocedural states; I25.2 Old myocardial infarction; Z86.73 Personal history of transient ischemic attack (TIA), and cerebral infarction without residual deficits; Z95.5 Presence of coronary angioplasty implant and graft; Z87.11 Personal history of peptic ulcer disease; Z99.81 Dependence on supplemental oxygen; Z87.891 Personal history of nicotine dependence; Z88.6 Allergy status to analgesic agent; Z88.5 Allergy status to narcotic agent; Z88.8 Allergy status to other drugs, medicaments and biological substances; Z91.041 Radiographic dye allergy status; Z79.4 Long term (current) use of insulin; Z79.01 Long term (current) use of anticoagulants; Z79.899 Other long term (current) drug therapy; Z68.33 Body mass index [BMI] 33.0-33.9, adult; Z79.82 Long term (current) use of aspirin
CPT/HCPCS: 0241U; 36415; 71045; 80048; 80053; 82803; 82947; 83735; 83880; 84145; 84484; 85025; 85520; 85610; 85730; 93005; 93010; 94640; 94660; 94664; 94760; 94762; 96365; 96368; 96375; 96376; 99285-25; A9270; G0378; J0696; J1644; J1815; J1940; J2930

== ENCOUNTER 2021-09-13 21:05 | Inpatient (IN) | payer OTHER ==
[~2021-09-13] VITALS: Ht 177.8 cm; Wt 117.7 kg
[~2021-09-13 21:05] MED LIST changes: +ENTRESTO 24 MG1 EACH PO; +GUAI600T33 PO; +HUMULIN R100 UNIT/2 SC; -IPRAT-ALBUT 0.5-3 ML INH; +PANT40 PO; +TRELEGY ELLIPT1 EACH INH
[2021-09-13 21:16] LABS: PCO2 Arterial 57.6 mmHg (35-45); PO2 Arterial 112 mmHg (80-100); pH Blood Arterial 7.33 (7.35-7.45)
[2021-09-13 21:21] LABS: BASOPHILS ABSOLUTE AUTO 0.13 K/mm3 (0.00-0.23); BASOPHILS PERCENT AUTO 1 % (0-2); EOSINOPHILS ABSOLUTE AUTO 0.38 K/mm3 (0.00-0.68); EOSINOPHILS PERCENT AUTO 2 % (0-6); Hematocrit 40.5 % (37.0-53.0); Hemoglobin 11.8 g/dL (13.5-17.5); IMMATURE GRAN ABSOLUTE AUTO 0.07 K/mm3 (0.00-0.10); IMMATURE GRAN PERCENT AUTO 0 % (0-1); LYMPHOCYTES ABSOLUTE AUTO 3.65 K/mm3 (0.84-5.20); LYMPHOCYTES PERCENT AUTO 22 % (21-46); MONOCYTES ABSOLUTE AUTO 0.77 K/mm3 (0.16-1.47); MONOCYTES PERCENT AUTO 5 % (4-13); Mean Corpuscular HGB 21.7 pg (26.0-34.0); Mean Corpuscular HGB Conc 29.1 g/dL (31.5-36.5); Mean Corpuscular Volume 75 fL (80-100); Mean Platelet Volume 11.3 fL (9.1-12.4); NEUTROPHILS ABSOLUTE AUTO 11.59 K/mm3 (1.96-9.15); NEUTROPHILS PERCENT AUTO 70 % (41-73); Platelet Count 347 K/mm3 (150-400); Red Blood Cell Count 5.43 M/mm3 (4.30-5.90); White Blood Cell Count 16.59 K/mm3 (4.00-11.30)
[2021-09-13 21:45] LABS: Anion Gap 5 mmol/L (6-16); Blood Urea Nitrogen 25 mg/dL (8-24); Bun/Creatinine Ratio 27.6 (12.0-20.0); CO2, Blood 29 mmol/L (21-32); Calcium, Blood 8.8 mg/dL (8.5-10.1); Chloride, Blood 101 mmol/L (98-108); Creatinine, Blood 0.91 mg/dL (0.60-1.20); Glomerular Filtration Rate >60 (60-); Glucose, Blood 438 mg/dL (70-99); Potassium, Blood 4.2 mmol/L (3.5-5.5); Sodium, Blood 135 mmol/L (136-145); Troponin I <0.015 ng/mL (0.000-0.040)
[2021-09-13 22:01] LABS: Influenza A, PCR NEGATIVE (NEGATIVE); Influenza B, PCR NEGATIVE (NEGATIVE); Resp Syncytial Virus, PCR NEGATIVE (NEGATIVE); SARS-Cov-2 (COVID-19) PCR, MMC NEGATIVE (NEGATIVE)
[2021-09-13] MEDS ORDERED: AMLO5 PO (22:10)
[2021-09-14 03:08] LABS: BASOPHILS ABSOLUTE AUTO 0.02 K/mm3 (0.00-0.23); BASOPHILS PERCENT AUTO 0 % (0-2); EOSINOPHILS PERCENT AUTO 0 % (0-6); Hematocrit 34.8 % (37.0-53.0); Hemoglobin 10.4 g/dL (13.5-17.5); IMMATURE GRAN ABSOLUTE AUTO 0.03 K/mm3 (0.00-0.10); IMMATURE GRAN PERCENT AUTO 0 % (0-1); LYMPHOCYTES ABSOLUTE AUTO 0.19 K/mm3 (0.84-5.20); LYMPHOCYTES PERCENT AUTO 2 % (21-46); MONOCYTES ABSOLUTE AUTO 0.07 K/mm3 (0.16-1.47); MONOCYTES PERCENT AUTO 1 % (4-13); Mean Corpuscular HGB Conc 29.9 g/dL (31.5-36.5); Mean Corpuscular Volume 74 fL (80-100); NEUTROPHILS ABSOLUTE AUTO 8.52 K/mm3 (1.96-9.15); NEUTROPHILS PERCENT AUTO 97 % (41-73); Platelet Count 246 K/mm3 (150-400); RDW Coefficient Variation 17.9 % (11.7-14.2); RDW Standard Deviation 47.5 fL (35.1-46.3); Red Blood Cell Count 4.73 M/mm3 (4.30-5.90); White Blood Cell Count 8.83 K/mm3 (4.00-11.30)
[2021-09-14 03:09] LABS: Mean Platelet Volume 11.1 fL (9.1-12.4)
[2021-09-14 03:38] LABS: Alanine Aminotransfer (ALT/SGP 68 U/L (12-78); Albumin, Blood 2.1 g/dL (3.4-5.0); Albumin/Globulin Ratio 0.5 (0.8-1.8); Alk Phos 86 U/L (50-136); Anion Gap 7 mmol/L (6-16); Aspartate Aminotrans (AST/SGOT 33 U/L (12-37); Bilirubin, Total 0.2 mg/dL (0.1-1.0); Blood Urea Nitrogen 30 mg/dL (8-24); Bun/Creatinine Ratio 30.2 (12.0-20.0); CO2, Blood 28 mmol/L (21-32); Calcium, Blood 8.8 mg/dL (8.5-10.1); Chloride, Blood 99 mmol/L (98-108); Creatinine, Blood 0.99 mg/dL (0.60-1.20); Globulin, Blood 4.3 g/dL (2.2-4.0); Glomerular Filtration Rate >60 (60-); Glucose, Blood 522 mg/dL (70-99); Potassium, Blood 4.7 mmol/L (3.5-5.5); Sodium, Blood 134 mmol/L (136-145); Total Protein, Blood 6.4 g/dL (6.4-8.2)
--- NOTE | 2021-09-14 05:52 | NUR ---
SHIFT SUMMARY ASSUMED CARE OF PT AT 0000. PT IS A/OX4. HEART SOUNDS REGULAR, TELE SHOWS SINUS. LUNG SOUNDS HAVE WHEESES IN THE APEXES AND ARE DIMINISHED IN THE BASES. PT ON 3L NC T/O THE NIGHT WHICH IS HIS BASELINE. SATURATIONS REMAINED ABOVE 95%. PT WAS INDEPENDENT TO BATHROOM. PT BLOOD SUGAR WAS VERY ELEVATED AT 0200, HOSPITALIST WAS NOTIFIED AND ORDERED HOME REGIME OF [place]. WITH AM LABS ARE 0430, GLUCOSE LEVEL WAS 522, HOSPITALIST NOTIFED AND CHANGED COVERAGE TO HIGH SLIDING SCALE AND ORDERED 10 UNITS ONCE. WAITING TEST RESULTS. PT IS VERY UPSET ABOUT HAVING A FLUID RESTRICTION. CALL LIGHT IN REACH, BED IN LOWEST POSTION.
--- NOTE | 2021-09-14 08:45 | NUR ---
INITIAL ASSESSMENT: PT IS AWAKE AND ALERT AND ORIENTED. PT C/O CHRONIC PAIN IN HEAD AND BACK HE RATES THIS AT A 10/10, MEDICATED WITH TYLENOL. HRR. LS DIM T/O, BIOX 90% ON RA, PT WEARS 3L OXYGEN AT HOME AND C-PAP. PT STATES HE IS IN THE PROCESS OF OBTAINING A NEW [facility]OUGH [facility]. BT+. PPP, TRACE EDEMA TO BLE. CBG 371, PT GIVEN 15 UNITS NOVOLOG PER HIGH S/S. AM MEDS GIVEN WHOLE WITH WATER. PT DENEIS OTHER NEEDS AT THIS TIME. CALL LIGHT IN REACH, WILL CONTINUE TO MONTIOR.
--- NOTE | 2021-09-14 13:01 | NUR ---
Patient verbalizes understanding of DC instructions. Patient denies other needs at this time. Patient discharged to home with friend via WC.
== END 2021-09-14 12:36 | disposition home or self-care (01) | DRG 291 ==
LOC: ER 21:05 → PCU 23:32
PROVIDERS: Student in an Organized Health Care Education/Training Program; ADMIT Internal Medicine
PROC: 3E02340 Introduction of Influenza Vaccine into Muscle, Percutaneous Approach (ICD-10-PCS; principal; 2021-09-13)
PROC: 5A09357 Assistance with Respiratory Ventilation, Less than 24 Consecutive Hours, Continuous Positive Airway Pressure (ICD-10-PCS; 2021-09-13)
DX: I11.0 Hypertensive heart disease with heart failure (principal); J96.21 Acute and chronic respiratory failure with hypoxia; J96.22 Acute and chronic respiratory failure with hypercapnia; I50.43 Acute on chronic combined systolic (congestive) and diastolic (congestive) heart failure; J44.1 Chronic obstructive pulmonary disease with (acute) exacerbation; Z20.822 Contact with and (suspected) exposure to COVID-19; Z23 Encounter for immunization; E11.40 Type 2 diabetes mellitus with diabetic neuropathy, unspecified; I25.10 Atherosclerotic heart disease of native coronary artery without angina pectoris; G47.33 Obstructive sleep apnea (adult) (pediatric); E66.01 Morbid (severe) obesity due to excess calories; D63.8 Anemia in other chronic diseases classified elsewhere; K21.9 Gastro-esophageal reflux disease without esophagitis; D72.828 Other elevated white blood cell count; T38.0X5A Adverse effect of glucocorticoids and synthetic analogues, initial encounter; E78.00 Pure hypercholesterolemia, unspecified; Z99.81 Dependence on supplemental oxygen; Z68.33 Body mass index [BMI] 33.0-33.9, adult; Z87.11 Personal history of peptic ulcer disease; Z99.89 Dependence on other enabling machines and devices; Z95.5 Presence of coronary angioplasty implant and graft; Z98.890 Other specified postprocedural states; Z91.041 Radiographic dye allergy status; Z88.5 Allergy status to narcotic agent; Z88.8 Allergy status to other drugs, medicaments and biological substances; Z86.73 Personal history of transient ischemic attack (TIA), and cerebral infarction without residual deficits; I25.2 Old myocardial infarction; Z79.4 Long term (current) use of insulin; Z79.02 Long term (current) use of antithrombotics/antiplatelets; Z79.82 Long term (current) use of aspirin; Z79.899 Other long term (current) drug therapy
CPT/HCPCS: 0241U; 36415; 36600; 71045; 80048; 80053; 82375; 82803; 82947; 83605; 83880; 84145; 84484; 85025; 87040; 90686; 93005; 93010; 94640; 94762; 96365; 96375; 99285-25; A9270; J0696; J1650; J1815; J1940; J2930; J3475

== ENCOUNTER 2022-12-09 21:58 | Inpatient (IN) | payer OTHER, MEDICARE ==
[~2022-12-09] VITALS: Ht 188 cm; Wt 115.1 kg
[~2022-12-09 21:58] MED LIST changes: +AMLO5 PO
[2022-12-09 22:17] LABS: BASOPHILS ABSOLUTE AUTO 0.08 K/mm3 (0.00-0.23); BASOPHILS PERCENT AUTO 0 % (0-2); EOSINOPHILS PERCENT AUTO 0 % (0-6); Hematocrit 48.6 % (37.0-53.0); Hemoglobin 16.3 g/dL (13.5-17.5); IMMATURE GRAN ABSOLUTE AUTO 0.12 K/mm3 (0.00-0.10); IMMATURE GRAN PERCENT AUTO 1 % (0-1); LYMPHOCYTES ABSOLUTE AUTO 0.87 K/mm3 (0.84-5.20); LYMPHOCYTES PERCENT AUTO 4 % (21-46); MONOCYTES ABSOLUTE AUTO 1.34 K/mm3 (0.16-1.47); MONOCYTES PERCENT AUTO 6 % (4-13); Mean Corpuscular HGB 30.1 pg (26.0-34.0); Mean Corpuscular HGB Conc 33.5 g/dL (31.5-36.5); Mean Corpuscular Volume 90 fL (80-100); Mean Platelet Volume 10.9 fL (9.1-12.4); NEUTROPHILS ABSOLUTE AUTO 21.69 K/mm3 (1.96-9.15); NEUTROPHILS PERCENT AUTO 90 % (41-73); Platelet Count 176 K/mm3 (150-400); RDW Coefficient Variation 13.6 % (11.7-14.2); RDW Standard Deviation 45.1 fL (35.1-46.3); Red Blood Cell Count 5.41 M/mm3 (4.30-5.90)
[2022-12-09 22:31] LABS: Albumin, Blood 2.7 g/dL (3.4-5.0); Albumin/Globulin Ratio 0.6 (0.8-1.8); Bilirubin, Total 0.8 mg/dL (0.1-1.0); Bun/Creatinine Ratio 26.2 (12.0-20.0); Calcium, Blood 9.3 mg/dL (8.5-10.1); Creatinine, Blood 0.88 mg/dL (0.60-1.20); Globulin, Blood 4.6 g/dL (2.2-4.0); Potassium, Blood 4.3 mmol/L (3.5-5.5); Total Protein, Blood 7.3 g/dL (6.4-8.2)
[2022-12-09] MEDS ORDERED: VASCEPA1 G1 PO (22:42)
[2022-12-09] MEDS ORDERED: SUCR1 PO (22:42)
[2022-12-09] MEDS ORDERED: ERGOCAL62.5 MC1 PO (22:43)
[2022-12-09 22:50] LABS: Magnesium, Blood 2.1 mg/dL (1.6-2.4)
[2022-12-10 01:49] LABS: Glucose, Blood 573 mg/dL (70-99)
--- NOTE | 2022-12-10 03:19 | NUR ---
ASSUMPTION OF CARE THIS RN ASSUMED CARE OF PT AT 0145 WHEN ARRIVED FROM ED. REPORT FROM CHANDRIKA ANDRES. PT ARRIVED VIA GURNEY, PT ABLE TO TRANSFER INDENPENDENTLY TO PCU HOSPITAL BED. PT ARRIVED ON 5 L 02 VIA AK. PT INTERACTING AND RESPONDING APPROPRIATELY; A&0 X4. PT MILDLY SOB BUT WOB NORMAL. PT APPEARS PALE AND FATIGUE. PT STATES HE DOES FEEL "A LITTLE SOB BUT MUCH BETTER FROM INITIAL ARRIVAL TO HOSPITAL". PT DENIES CP OR PRESSURE. REPORTS CHEST PAIN AND SORENESS FROM COUGHING. PT STATES HE HAS HAD PRODUCTIVE COUGH FOR "A LONG TIME". SPUTUM IS THICK, "YELLOWISH/GREEN". VSS; ALTHOUGH SBP ELEVATED AT 163. PT REPORTS HX OF HTN AND DID NOT TAKE HIS MEDICATIONS FOR THE DAY. REPORTS HE "SLEPT RIGHT THROUGH THE DAY". LUNG SOUNDS ARE DIMINISHED THROUGHOUT AND MILDLY COARSE. ABX INFUSING UPON ARRIVAL. LASIX AND FLU VACCINATION ADMINISTERED BY THIS RN. PT REPORTS HEADACHE 10/10; MEDICATED PER EMAR. PT REPORTS NORMAL VOIDING AND BM EXCEPT "I AM BLEEDING FROM THE INSIDE", THIS RN CLARIFIED. PT STATES HE HAS "BLACK STOOLS W/BLOOD". REPORTS THIS HAS BEEN GOING ON "FOR A LONG TIME". STATES PCP IS AWARE AND RECENTLY SENT IN A "TEST KIT". PT NOW RESTING IN ROOM. CALL LIGHT IN REACH AND BED IN LOWEST POSITION. PT ORIENTED TO ROOM.
[2022-12-10 04:42] LABS: Bun/Creatinine Ratio 29.7 (12.0-20.0); Creatinine, Blood 0.94 mg/dL (0.60-1.20); Potassium, Blood 4.6 mmol/L (3.5-5.5)
--- NOTE | 2022-12-10 05:19 | NUR ---
TRANSFER NOTE PT'S MORNING LABS SHOWED BLOOD SUGAR LEVEL OF 617. THIS RN NOTIFIED HOSPITALIST. NEW ORDERS TO TRANSFER TO ICU FOR INSULIN DRIP AND CLOSER MONITORING. THIS RN INFORMED CARDIOVASCULAR SURGICAL TECH AND GAVE REPORT TO PARTY CHIEFCHANDRIKA GARVEY. PT TRANSFERRED VIA WHEELCHAIR W/PT BELONGINGS. PT STABLE AND DENIES ANY SX R/T ELEVATED LEVELS. VSS. PT TRANSPORTED W/5 L 02 VIA NC.
--- NOTE | 2022-12-10 05:25 | NUR ---
TRANSFER TO ICU PT BROUGHT TO UNIT VIA WHEELCHAIR AND TRANSFERS TO BED WITH STANDBY ASSIST. PT IS A&OX4 WITH VERY PLEASANT AFFECT. PT C/O 9 HEADACHE AND REQUESTS EXCEDRIN. HE PARTICIPATES IN CONVERSATION AND CARE. BLOOD GLUCOSE "HIGH" ON MONITOR, BLOOD SAMPLE SENT TO LAB. INSULIN GTT STARTED AT 5UNITS/HR. HE IS ON 4L NC WITH SPO2 >95%. HE HAS A WET PRODUCTIVE COUGH THAT HE STS HE HAS HAD FOR MONTHS. HE HAS A STRONG COUGH AND PRODUCES THICK YELLOW PHLEGM. NSR ON MONITOR WITH RATE IN 70S. BP STABLE WITH SBP 130S-140S. PT DENIES NAUSEA OR GI UPSET. URINAL AT BEDSIDE. BED IN LOWEST POSITION, CALL LIGHT WITHIN REACH.
[2022-12-10 06:10] LABS: Glucose, Blood 687 mg/dL (70-99)
[2022-12-10 07:01] LABS: Glucose, Blood 644 mg/dL (70-99)
--- NOTE | 2022-12-10 07:30 | NUR ---
PT A&OX4. PT REPORTS 7/10 HEADACHE. ECG SHOWS SR WITH FREQUENT PAC'S. BP WDL FOR PT. DP/PT PULSES 2+ NO NOTED EDEMA. LUNGS TIGHT AND DIMINISHED TO BASES. PT HAS MOIST COUGH PRODUCTIVE OR MODERATE AMOUNT OF THICK, YELLOW SPUTUM. SATS>90% ON 4 LITERS NASAL CANULA. SOB NOTED WITH EXERTION. PT NPO. ORAL MUCOSA VERY DRY. STAT GLUCOSE SENT- GLUCOSE 644 INSULIN DRIP @ 8 UNITS/HR. PT DENIES GI DISTRESS, BUT STATES THAT HE IS "STARTVING." PT TOLERATING SIPS OF WATER WITHOUT DIFFICULTY. PT HAS URINAL AT BEDSIDE AND VOIDS INDEPENDENTLY PRN. CALL LIGHT WITHIN REACH.
--- NOTE | 2022-12-10 08:00 | NUR ---
STAT GLUCOSE SENT-614 INSULIN DRIP INCREASED TO 10 UNITS/HR. PT CONTINUES TO REPORT HEADACHE. PT STATES THAT HIS HEADACHE IS NOW 9/10.
[2022-12-10 08:41] LABS: Glucose, Blood 614 mg/dL (70-99)
--- NOTE | 2022-12-10 09:38 | NUR ---
PT GIVEN EXCEDRIN FOR 07/08 HEADACHE. GLUCOSE 416 INSULIN DRIP CONTINUES @ 10 UNITS/HR.
--- NOTE | 2022-12-10 12:00 | NUR ---
PT STATES THAT HIS HEAD IS FEELING BETTER. VSS. LUNGS REMAIN TIGHT AND DIMINISHED THROUGH OUT. SATS>90% ON 4 LITERS NASAL CANULA. PT COUGHING UP LARGE AMOUNT OF THICK, YELLOW/GREEN SPUTUM WITH BLACK FLECKS IN IT. WILL COLLECT SPUTUM SPECIMEN. CBG 369 INSULIN DRIP @ 12 UNITS/HR.
--- NOTE | 2022-12-10 14:30 | NUR ---
ECHO COMPLETED. CBG 243 INSULIN DRIP @ 14 UNITS/HR. DR. FAROOQ UPDATED. PT TO RESUME ADA DIET. LONG ACTING INSULIN TO BE GIVEN AND INSULIN DRIP TO BE TURNED OFF 1 HOUR AFTER THE SC DOSE GIVEN.
--- NOTE | 2022-12-10 15:15 | NUR ---
JAMESG 243-PT GIVEN LONG ACTING INSULIN-SEE EMAR.
--- NOTE | 2022-12-10 16:15 | NUR ---
CBG 199-INSULIN DRIP OFF AND CBG COVERED PER SLIDING SCALE-SEE EMAR. ECG CONTINUES SR TO ST WITH FREQUENT PAC'S. LUNGS REMAIN TIGHT AND DIMINISHED. SATS>90% ON 4 LITERS NASAL CANULA. FREQUENT, MOIST COUGH PRODUCTIVE OF MODERATE AMOUNT OF THICK, YELLOW/GREEN SPUTUM-SPECIMEN SENT.PT TOLERATING ADA DIET WELL. PM DOSE OF LASIX GIVEN-NS CONTINUES@ 75 CC/HR. PT DENIES COMPLAINTS. NOW PCU STATUS.
--- NOTE | 2022-12-10 20:20 | NUR ---
ASSUMED CARE. SITTING UP IN BED WATCHING TV. RT AT BEDSIDE, BREATHING TX STARTED. BLOOD SUGAR 412. MEDS GIVEN. LS COARSE T/O. PRODUCTIVE COUGH WITH THICK SINGH SECREATIONS. ON 4L NC SATS >90%. STATES DYSPNEA ON EXERTION ONLY. SINUS ARRYTHMIA ON MONITOR WITH RATE OF 80'S. DENEIS ANY CHEST PAIN. REPORTS LOWER BACK PAIN AND HEADACHE THAT IS STARTING. STATES HE TYPICALLY GETS HEADACHES WHEN HIS BLOOD SUGAR IS HIGH. DENIES ANY NEEDS AT THIS TIME.
--- NOTE | 2022-12-10 21:46 | NUR ---
REPEAT BLOOD SUGAR 417. DR. ANTONY CALLED. ADMINISTERED 15 UNITS OF SHORT ACTING PER NEW ORDER.
--- NOTE | 2022-12-10 23:41 | NUR ---
BLOOD SUGAR RECHECK AFTER 2 HOURS, IS ONLY 402. CALLED DR. ANTONY BACK, NEW ORDER RECEIVED.
[2022-12-11 05:01] LABS: BASOPHILS ABSOLUTE AUTO 0.03 K/mm3 (0.00-0.23); BASOPHILS PERCENT AUTO 0 % (0-2); EOSINOPHILS PERCENT AUTO 0 % (0-6); Hematocrit 43.3 % (37.0-53.0); Hemoglobin 14.4 g/dL (13.5-17.5); IMMATURE GRAN ABSOLUTE AUTO 0.14 K/mm3 (0.00-0.10); IMMATURE GRAN PERCENT AUTO 1 % (0-1); LYMPHOCYTES ABSOLUTE AUTO 0.69 K/mm3 (0.84-5.20); LYMPHOCYTES PERCENT AUTO 3 % (21-46); MONOCYTES ABSOLUTE AUTO 0.99 K/mm3 (0.16-1.47); MONOCYTES PERCENT AUTO 5 % (4-13); Mean Corpuscular HGB 29.8 pg (26.0-34.0); Mean Corpuscular HGB Conc 33.3 g/dL (31.5-36.5); Mean Corpuscular Volume 90 fL (80-100); Mean Platelet Volume 11.8 fL (9.1-12.4); NEUTROPHILS ABSOLUTE AUTO 19.38 K/mm3 (1.96-9.15); NEUTROPHILS PERCENT AUTO 91 % (41-73); Platelet Count 176 K/mm3 (150-400); RDW Coefficient Variation 13.4 % (11.7-14.2); Red Blood Cell Count 4.83 M/mm3 (4.30-5.90); White Blood Cell Count 21.23 K/mm3 (4.00-11.30)
[2022-12-11 05:21] LABS: Bun/Creatinine Ratio 43.8 (12.0-20.0); Calcium, Blood 8.5 mg/dL (8.5-10.1); Creatinine, Blood 0.96 mg/dL (0.60-1.20); Potassium, Blood 4.4 mmol/L (3.5-5.5)
--- NOTE | 2022-12-11 06:26 | NUR ---
SHIFT SUMMARY: AOX3, MAKES NEEDS KNOWN. LS COARSE T/O. CPAP WITH BLEED IN OF 5L TO MAINTAIN SATS >92%. THICK SINGH SECREATIONS NOTED, STATES HE HAS BEEN COUGHING IT UP FOR YEARS. SINUS ON MONITOR. VS STABLE. BLOOD SUGARS INCREASED TO 417 NEEDING ADDITIONAL 20 UNITS OF SHORT ACTING TO BRING SUGARS DOWN TO 330 THIS AM. NO OTHER CHANGES TO REPORT.
--- NOTE | 2022-12-11 09:58 | NUR ---
ASSUMED CARE OF ROSAS AT 0700 THIS AM. HE WAS ON THE CPAP WITH 5L OXYGEN BLEED IN, HE WAS STILL HAVING BRIEF MOMENTS OF SATS IN THE LOW 80'S. ENCOURAGED TO COUGH AND HE WAS ABLE TO COME BACK UP. HE TOOK OFF HIS CPAP AND HAS BEEN ON THE NC @ 4L SINCE BREAKFAST. HE HAS BEEN ABLE TO BE INDEPENDENT IN THE ROOM AND SPEAK WITH ALL THE PROVIDERS WHO MADE ROUNDS. HE CONTINUES TO HAVE ISSUES WITH HIS BLOOD SUGARS BEING ELEVATED R/T HIS STEROIDS. HE IS TRYING TO HELP CONTROL THIS WITH WHAT HE IS EATING. HIS LUNGS ARE DIMINISHED IN THE BASES AND TIGHT ON THE RIGHT WITH COARSE UPPER LOBES. HE RETURNS A BROWN COLORED SPUTUM. STATES THIS IS FAIRLY NORMAL FOR HIM. WILL CONTINUE TO MONITOR AND TREAT, WITH TRANSFER TO MEDICAL FLOOR WHEN ABLE.
--- NOTE | 2022-12-11 17:41 | NUR ---
SHIFT SUMMARY PATIENT IS ALERT AND ORIENTED. PATIENT IS A RECENT TRANSFER FROM ICU2. PATIENT HAS BEEN IND IN ROOM. PATIENT HAS NOT HAD ANY ACUTE EVENTS THIS SHIFT. VITAL SIGNS REVIEWED. PATIENT HAS COMPLAINED OF PAIN IN HEAD AND BACK AND MEDICATED PER EMAR. PATIENT HAS NOT COMPLAINED OF SOB, NAUSEA, OR VOMITTING. PATIENT IS STILL ON 4L NASAL CANNULA. BED IN LOCKED AND LOWEST POSITION. CALL LIGHT IN PLACE. WILL MONITOR UNTIL SHIFT CHANGE.
[2022-12-12 07:04] LABS: BASOPHILS ABSOLUTE AUTO 0.04 K/mm3 (0.00-0.23); BASOPHILS PERCENT AUTO 0 % (0-2); EOSINOPHILS PERCENT AUTO 0 % (0-6); Hematocrit 45.2 % (37.0-53.0); Hemoglobin 15.3 g/dL (13.5-17.5); IMMATURE GRAN ABSOLUTE AUTO 0.18 K/mm3 (0.00-0.10); IMMATURE GRAN PERCENT AUTO 1 % (0-1); LYMPHOCYTES ABSOLUTE AUTO 0.46 K/mm3 (0.84-5.20); LYMPHOCYTES PERCENT AUTO 3 % (21-46); MONOCYTES ABSOLUTE AUTO 0.42 K/mm3 (0.16-1.47); MONOCYTES PERCENT AUTO 3 % (4-13); Mean Corpuscular HGB 30.2 pg (26.0-34.0); Mean Corpuscular HGB Conc 33.8 g/dL (31.5-36.5); Mean Corpuscular Volume 89 fL (80-100); Mean Platelet Volume 11.7 fL (9.1-12.4); NEUTROPHILS ABSOLUTE AUTO 13.12 K/mm3 (1.96-9.15); NEUTROPHILS PERCENT AUTO 92 % (41-73); Platelet Count 184 K/mm3 (150-400); RDW Coefficient Variation 13.6 % (11.7-14.2); RDW Standard Deviation 44.6 fL (35.1-46.3); Red Blood Cell Count 5.06 M/mm3 (4.30-5.90); White Blood Cell Count 14.22 K/mm3 (4.00-11.30)
[2022-12-12 07:22] LABS: Albumin, Blood 2.3 g/dL (3.4-5.0); Albumin/Globulin Ratio 0.6 (0.8-1.8); Bilirubin, Total 0.3 mg/dL (0.1-1.0); Bun/Creatinine Ratio 46.8 (12.0-20.0); Calcium, Blood 8.3 mg/dL (8.5-10.1); Creatinine, Blood 0.88 mg/dL (0.60-1.20); Potassium, Blood 4.1 mmol/L (3.5-5.5); Total Protein, Blood 6.3 g/dL (6.4-8.2)
--- NOTE | 2022-12-12 19:48 | NUR ---
SHIFT SUMMARY- PT ALERT AND ORIENTED, INDEPENDENT IN THE ROOM. PT HAS HAD NO ACUTE CHANGE THIS SHIFT. THE PT DID HAVE A MIGRAINE FFOR THE FIRST HALF OF THE SHIFT, DOSE OF GENOCED WAS CHANGED TO 1-2 TABS. 2 TABS MADE IT A LOT MORE BEARABLE PER PT. PT SWITCHED TO PO STEROIDS AND THE DAY PROGRESSED BG SEEMED TO IMPRIVE. LAST BG WAS 249. REPORT COMPLETED WITH NIGHT RN. PT LAYING IN BED, CALL LIGHT IN REACH, WATCHING TV AT THE TIME OF SHIFT CHANGE, NO S&S OF DISTRESS NOTED.
[2022-12-13 07:24] LABS: BASOPHILS ABSOLUTE AUTO 0.06 K/mm3 (0.00-0.23); BASOPHILS PERCENT AUTO 1 % (0-2); EOSINOPHILS ABSOLUTE AUTO 0.08 K/mm3 (0.00-0.68); EOSINOPHILS PERCENT AUTO 1 % (0-6); Hematocrit 44.3 % (37.0-53.0); Hemoglobin 14.8 g/dL (13.5-17.5); IMMATURE GRAN ABSOLUTE AUTO 0.22 K/mm3 (0.00-0.10); IMMATURE GRAN PERCENT AUTO 2 % (0-1); LYMPHOCYTES ABSOLUTE AUTO 2.09 K/mm3 (0.84-5.20); LYMPHOCYTES PERCENT AUTO 19 % (21-46); MONOCYTES PERCENT AUTO 12 % (4-13); Mean Corpuscular HGB 30.3 pg (26.0-34.0); Mean Corpuscular HGB Conc 33.4 g/dL (31.5-36.5); Mean Corpuscular Volume 91 fL (80-100); Mean Platelet Volume 10.9 fL (9.1-12.4); NEUTROPHILS ABSOLUTE AUTO 7.19 K/mm3 (1.96-9.15); NEUTROPHILS PERCENT AUTO 66 % (41-73); Platelet Count 190 K/mm3 (150-400); RDW Coefficient Variation 13.7 % (11.7-14.2); RDW Standard Deviation 46.1 fL (35.1-46.3); Red Blood Cell Count 4.88 M/mm3 (4.30-5.90); White Blood Cell Count 10.94 K/mm3 (4.00-11.30)
[2022-12-13 07:45] LABS: Albumin/Globulin Ratio 0.6 (0.8-1.8); Bilirubin, Total 0.2 mg/dL (0.1-1.0); Bun/Creatinine Ratio 38.8 (12.0-20.0); Creatinine, Blood 0.93 mg/dL (0.60-1.20); Globulin, Blood 3.6 g/dL (2.2-4.0); Potassium, Blood 3.8 mmol/L (3.5-5.5); Total Protein, Blood 5.6 g/dL (6.4-8.2)
--- NOTE | 2022-12-13 10:17 | NUR ---
DR SUKUMAR LYON NOTIFIED OF 11 BEAT VTACH AT 0924. PLAN FOR EKG
[2022-12-13] MEDS ORDERED: PANT40 PO (15:02)
[2022-12-13] MEDS ORDERED: BASAGLAR K100 UNIT/1 SC (15:02)
[2022-12-13] MEDS ORDERED: HUMALOG MI100 UNIT/2 SC (15:03)
[2022-12-13] MEDS ORDERED: INSULIN LI100 UNIT/6 SQ (15:05)
[2022-12-13] MEDS ORDERED: PRED20 PO (15:06)
[2022-12-13] MEDS ORDERED: IPRAT-ALBUT 0.5-3 ML INH (15:13)
--- NOTE | 2022-12-13 16:01 | NUR ---
DISCHARGE PT A&OX4 AT TIME OF DC. POWER GLIDE REMOVED. MEDS FAXED INTO [facility]. TOLERATING PO INTAKE WELL. WC ESCORT OUT TO [place] VIA FINE ARTIST. FRIEND PROVIDING TRANSPORT. PT REFUSED HOME O2 EVAL PRIOR TO DC.
== END 2022-12-13 16:43 | disposition home or self-care (01) | DRG 871 ==
LOC: ER 21:58 → MEDS 12-10 00:47 → PCU 12-10 00:47 → ICUE 12-10 00:47 → MEDS 12-10 00:47 → PCU 12-10 01:37 → ICUE 12-10 05:19 → MEDS 12-11 10:27
PROVIDERS: Emergency Medicine; Family Medicine; Student in an Organized Health Care Education/Training Program; ADMIT Internal Medicine
DX: A41.9 Sepsis, unspecified organism (principal); I50.23 Acute on chronic systolic (congestive) heart failure; J96.22 Acute and chronic respiratory failure with hypercapnia; J96.21 Acute and chronic respiratory failure with hypoxia; J44.1 Chronic obstructive pulmonary disease with (acute) exacerbation; I25.10 Atherosclerotic heart disease of native coronary artery without angina pectoris; E78.00 Pure hypercholesterolemia, unspecified; M54.9 Dorsalgia, unspecified; G89.29 Other chronic pain; E11.40 Type 2 diabetes mellitus with diabetic neuropathy, unspecified; I11.0 Hypertensive heart disease with heart failure; E11.65 Type 2 diabetes mellitus with hyperglycemia; D72.828 Other elevated white blood cell count; R65.20 Severe sepsis without septic shock; T38.0X5A Adverse effect of glucocorticoids and synthetic analogues, initial encounter; G47.33 Obstructive sleep apnea (adult) (pediatric); Z87.891 Personal history of nicotine dependence; Z86.73 Personal history of transient ischemic attack (TIA), and cerebral infarction without residual deficits; I25.2 Old myocardial infarction; Z95.5 Presence of coronary angioplasty implant and graft; Z98.890 Other specified postprocedural states; Z99.89 Dependence on other enabling machines and devices; Z87.11 Personal history of peptic ulcer disease; Z88.5 Allergy status to narcotic agent; Z88.8 Allergy status to other drugs, medicaments and biological substances; Z91.041 Radiographic dye allergy status; Z79.4 Long term (current) use of insulin; Z79.02 Long term (current) use of antithrombotics/antiplatelets; Z79.82 Long term (current) use of aspirin; Z79.899 Other long term (current) drug therapy
CPT/HCPCS: 36415; 71045; 80048; 80053; 82947; 83036; 83735; 83880; 84145; 84484; 85025; 87070; 87205; 90686; 93005; 93010; 93306; 94640; 94660; 94664; 94760; 94762; 96365; 96375; 96376; 99285-25; A9270; C1751; J0360; J0456; J0696; J1650; J1815; J1940; J2930; J7030; J7050; J7512

== ENCOUNTER 2023-05-17 12:14 | Emergency (ER) | payer OTHER ==
[~2023-05-17] VITALS: Ht 188 cm; Wt 108.9 kg
[~2023-05-17 12:14] MED LIST changes: +ERGOCAL62.5 MC1 PO; +HUMALOG MI100 UNIT/2 SC; +INSULIN LI100 UNIT/6 SQ; +IPRAT-ALBUT 0.5-3 ML INH; +SUCR1 PO; +VASCEPA1 G1 PO
[2023-05-17 13:02] LABS: BASOPHILS ABSOLUTE AUTO 0.07 K/mm3 (0.00-0.23); BASOPHILS PERCENT AUTO 1 % (0-2); EOSINOPHILS ABSOLUTE AUTO 0.12 K/mm3 (0.00-0.68); EOSINOPHILS PERCENT AUTO 2 % (0-6); Hematocrit 53.6 % (37.0-53.0); Hemoglobin 17.6 g/dL (13.5-17.5); IMMATURE GRAN ABSOLUTE AUTO 0.04 K/mm3 (0.00-0.10); IMMATURE GRAN PERCENT AUTO 1 % (0-1); LYMPHOCYTES ABSOLUTE AUTO 2.01 K/mm3 (0.84-5.20); LYMPHOCYTES PERCENT AUTO 25 % (21-46); MONOCYTES ABSOLUTE AUTO 0.75 K/mm3 (0.16-1.47); MONOCYTES PERCENT AUTO 9 % (4-13); Mean Corpuscular HGB 30.1 pg (26.0-34.0); Mean Corpuscular HGB Conc 32.8 g/dL (31.5-36.5); Mean Corpuscular Volume 92 fL (80-100); Mean Platelet Volume 11.5 fL (9.1-12.4); NEUTROPHILS ABSOLUTE AUTO 5.22 K/mm3 (1.96-9.15); NEUTROPHILS PERCENT AUTO 64 % (41-73); Platelet Count 198 K/mm3 (150-400); RDW Coefficient Variation 16.4 % (11.7-14.2); RDW Standard Deviation 53.5 fL (35.1-46.3); Red Blood Cell Count 5.85 M/mm3 (4.30-5.90); White Blood Cell Count 8.21 K/mm3 (4.00-11.30)
[2023-05-17 13:26] LABS: Albumin, Blood 2.9 g/dL (3.4-5.0); Albumin/Globulin Ratio 0.7 (0.8-1.8); Bilirubin, Total 0.6 mg/dL (0.1-1.0); Calcium, Blood 8.9 mg/dL (8.5-10.1); Creatinine, Blood 0.88 mg/dL (0.60-1.20); Globulin, Blood 4.4 g/dL (2.2-4.0); Potassium, Blood 4.5 mmol/L (3.5-5.5); Total Protein, Blood 7.3 g/dL (6.4-8.2)
[2023-05-17] MEDS ORDERED: INSULIN LI100 UNIT/6 SC (16:10)
[2023-05-17] MEDS ORDERED: BASAGLAR K100 UNIT/1 SC (16:10)
[2023-05-17 16:23] VITALS: BP 149/74
== END 2023-05-17 16:28 | disposition home or self-care (01) ==
LOC: ER 12:14
PROVIDERS: Physician Assistant
DX: E11.65 Type 2 diabetes mellitus with hyperglycemia (principal); E86.0 Dehydration; R06.02 Shortness of breath; R05.9 Cough, unspecified; E78.00 Pure hypercholesterolemia, unspecified; G47.33 Obstructive sleep apnea (adult) (pediatric); I11.0 Hypertensive heart disease with heart failure; I50.42 Chronic combined systolic (congestive) and diastolic (congestive) heart failure; E11.40 Type 2 diabetes mellitus with diabetic neuropathy, unspecified; I25.2 Old myocardial infarction; I25.10 Atherosclerotic heart disease of native coronary artery without angina pectoris; Z86.73 Personal history of transient ischemic attack (TIA), and cerebral infarction without residual deficits; Z91.041 Radiographic dye allergy status; Z88.1 Allergy status to other antibiotic agents; Z88.5 Allergy status to narcotic agent; Z88.8 Allergy status to other drugs, medicaments and biological substances; Z79.4 Long term (current) use of insulin; Z79.82 Long term (current) use of aspirin; Z79.02 Long term (current) use of antithrombotics/antiplatelets; Z79.899 Other long term (current) drug therapy; Z87.891 Personal history of nicotine dependence
CPT/HCPCS: 71046; 80053; 82947; 85025; 93005; 93010; 94640; 94664; 96360; 96361; 99285-25; J1815; J7030

== ENCOUNTER → 2023-07-04 | Outpatient (CLI) | payer OTHER ==
[~2023-07-04] MED LIST changes: +INSULIN LI100 UNIT/6 SC
== END ==
LOC: LAB SHORT 15:24 → LAB 15:24
DX: N39.0 Urinary tract infection, site not specified (principal)
CPT/HCPCS: 87086

== ENCOUNTER 2023-10-19 15:59 | Emergency (ER) | payer OTHER ==
[~2023-10-19] VITALS: Ht 188 cm; Wt 104.3 kg
[~2023-10-19 15:59] MED LIST changes: +ALBU3IS INH; +AMOCLA875 PO; +DILT180 PO; +ELIQUIS5 M2 PO; +HUMALOG KW100 UNIT/1 SC; +MIRALAX17 GM PO; +Prednisone10 MG PO; +SENNA LAXATIVE8.6 MG PO
[2023-10-19] MEDS ORDERED: JARDIANCE10 MG PO (16:15)
[2023-10-19] MEDS ORDERED: VALSARTAN40 MG PO (16:17)
[2023-10-19] MEDS ORDERED: VITAMIN D5000 UNIT PO (16:22)
[2023-10-19] MEDS ORDERED: ASCO500 PO (16:23)
[2023-10-19] MEDS ORDERED: FURO40 PO (16:26)
[2023-10-19 16:45] LABS: BASOPHILS ABSOLUTE AUTO 0.05 K/mm3 (0.00-0.23); BASOPHILS PERCENT AUTO 1 % (0-2); EOSINOPHILS ABSOLUTE AUTO 0.28 K/mm3 (0.00-0.68); EOSINOPHILS PERCENT AUTO 4 % (0-6); Hematocrit 51.1 % (37.0-53.0); Hemoglobin 16.7 g/dL (13.5-17.5); IMMATURE GRAN ABSOLUTE AUTO 0.03 K/mm3 (0.00-0.10); IMMATURE GRAN PERCENT AUTO 0 % (0-1); LYMPHOCYTES PERCENT AUTO 22 % (21-46); MONOCYTES ABSOLUTE AUTO 0.79 K/mm3 (0.16-1.47); MONOCYTES PERCENT AUTO 11 % (4-13); Mean Corpuscular HGB 29.9 pg (26.0-34.0); Mean Corpuscular HGB Conc 32.7 g/dL (31.5-36.5); Mean Corpuscular Volume 92 fL (80-100); Mean Platelet Volume 11.4 fL (9.1-12.4); NEUTROPHILS ABSOLUTE AUTO 4.68 K/mm3 (1.96-9.15); NEUTROPHILS PERCENT AUTO 63 % (41-73); Platelet Count 174 K/mm3 (150-400); RDW Coefficient Variation 14.8 % (11.7-14.2); RDW Standard Deviation 49.7 fL (35.1-46.3); Red Blood Cell Count 5.58 M/mm3 (4.30-5.90); White Blood Cell Count 7.43 K/mm3 (4.00-11.30)
[2023-10-19 17:14] LABS: Albumin, Blood 2.5 g/dL (3.4-5.0); Albumin/Globulin Ratio 0.6 (0.8-1.8); Bilirubin, Total 0.3 mg/dL (0.1-1.0); Bun/Creatinine Ratio 22.4 (12.0-20.0); Calcium, Blood 9.2 mg/dL (8.5-10.1); Creatinine, Blood 0.89 mg/dL (0.60-1.20); Globulin, Blood 4.2 g/dL (2.2-4.0); Potassium, Blood 3.7 mmol/L (3.5-5.5); Total Protein, Blood 6.7 g/dL (6.4-8.2)
[2023-10-19 19:30] VITALS: BP 155/95
== END 2023-10-19 20:25 | disposition home or self-care (01) ==
LOC: ER 15:59
PROVIDERS: Physician Assistant
DX: I11.0 Hypertensive heart disease with heart failure (principal); I50.9 Heart failure, unspecified; R07.89 Other chest pain; E11.40 Type 2 diabetes mellitus with diabetic neuropathy, unspecified; J44.9 Chronic obstructive pulmonary disease, unspecified; E78.00 Pure hypercholesterolemia, unspecified; G47.33 Obstructive sleep apnea (adult) (pediatric); Z99.89 Dependence on other enabling machines and devices; I25.10 Atherosclerotic heart disease of native coronary artery without angina pectoris; I25.2 Old myocardial infarction; Z86.73 Personal history of transient ischemic attack (TIA), and cerebral infarction without residual deficits; Z87.891 Personal history of nicotine dependence; Z79.02 Long term (current) use of antithrombotics/antiplatelets; Z79.4 Long term (current) use of insulin; Z79.01 Long term (current) use of anticoagulants; Z79.51 Long term (current) use of inhaled steroids; Z79.899 Other long term (current) drug therapy; Z88.2 Allergy status to sulfonamides; Z88.5 Allergy status to narcotic agent; Z88.8 Allergy status to other drugs, medicaments and biological substances; Z91.041 Radiographic dye allergy status
CPT/HCPCS: 71046; 80053; 83880; 84484; 85025; 93005; 93010; 96374; 96375; 99284-25; A9270; J1100; J2765

== ENCOUNTER 2024-09-17 00:18 | Inpatient (IN) | payer OTHER ==
[2024-09-17] VITALS (8 sets, daily range): BP systolic 141–182; BP diastolic 72–90
[~2024-09-17] VITALS: Ht 188 cm; Wt 106.6 kg
[~2024-09-17 00:18] MED LIST changes: +ASCO500 PO; +Amoxicillin500 MG PO; +Amoxicillin875 MG PO; -ENTRESTO 24 MG1 EACH PO; +ENTRESTO 97 MG1 EACH PO; +JARDIANCE10 MG PO; +Prednisone20 MG PO; +VALSARTAN40 MG PO; +VITAMIN D5000 UNIT PO
[2024-09-17 00:40] LABS: BASOPHILS ABSOLUTE AUTO 0.06 K/mm3 (0.00-0.23); BASOPHILS PERCENT AUTO 1 % (0-2); EOSINOPHILS ABSOLUTE AUTO 0.25 K/mm3 (0.00-0.68); EOSINOPHILS PERCENT AUTO 3 % (0-6); Hematocrit 50.8 % (37.0-53.0); Hemoglobin 17.2 g/dL (13.5-17.5); IMMATURE GRAN ABSOLUTE AUTO 0.09 K/mm3 (0.00-0.10); IMMATURE GRAN PERCENT AUTO 1 % (0-1); LYMPHOCYTES PERCENT AUTO 33 % (21-46); MONOCYTES ABSOLUTE AUTO 0.84 K/mm3 (0.16-1.47); MONOCYTES PERCENT AUTO 9 % (4-13); Mean Corpuscular HGB 29.5 pg (26.0-34.0); Mean Corpuscular HGB Conc 33.9 g/dL (31.5-36.5); Mean Corpuscular Volume 87 fL (80-100); Mean Platelet Volume 11.4 fL (9.1-12.4); NEUTROPHILS PERCENT AUTO 53 % (41-73); Platelet Count 196 K/mm3 (150-400); RDW Standard Deviation 44.4 fL (35.1-46.3); Red Blood Cell Count 5.83 M/mm3 (4.30-5.90); White Blood Cell Count 9.04 K/mm3 (4.00-11.30)
[2024-09-17 01:01] LABS: Source, Urine Clean Catch
[2024-09-17] MEDS ORDERED: NS 1,000 ML IV SCH ×2 (01:05→05:20)
--- NOTE | 2024-09-17 04:20 | NUR ---
ARRIVAL NOTE PT ARRIVED TO UNIT VIA GOURNEY. PT ABLE TO SCOOT SELF TO BED IND. VSS, PT ON 3L O2 VIA NC TO MAINTAIN SATS >90%. A&0 x4, POOR HISTORIAN. PT REPORTS 2 FALLS @ HOME AND 3 EPISODES OF LOSS OF CONSCIOUSNESS. NO VISIBLE INJURIES ON SKIN R/T FALLS. PT REPORTS BASELINE TINGLING TO BILAT LOWER EXTREMITIES c NEW ONSET TREMOR TO LLE AND HANDS. IV FLUIDS INFUSING PER EMAR. NO NEEDS STATED. ORIENTED TO UNIT, CALL LIGHT IN REACH, BED IN LOWEST POSITION.
[2024-09-17 04:30] LABS: Influenza A, PCR NEGATIVE (NEGATIVE); Influenza B, PCR NEGATIVE (NEGATIVE); Resp Syncytial Virus, PCR NEGATIVE (NEGATIVE); SARS-Cov-2 (COVID-19) PCR, MMC NEGATIVE (NEGATIVE)
[2024-09-17 04:57] LABS: Albumin, Blood 3.1 g/dL (3.4-5.0); Albumin/Globulin Ratio 0.8 (0.8-1.8); Bilirubin, Total 0.4 mg/dL (0.1-1.0); Bun/Creatinine Ratio 29.4 (12.0-20.0); Calcium, Blood 9.8 mg/dL (8.5-10.1); Creatinine, Blood 1.26 mg/dL (0.60-1.20); Globulin, Blood 4.1 g/dL (2.2-4.0); Magnesium, Blood 2.5 mg/dL (1.6-2.4); Potassium, Blood 4.4 mmol/L (3.5-5.5); Total Protein, Blood 7.2 g/dL (6.4-8.2)
[2024-09-17 05:11] LABS: Bilirubin, Urine Neg (Neg); Blood, Urine Neg (Neg); Glucose Qualitative, Urine 4+ (Neg); Ketones, Urine Neg (Neg); Leukocyte Esterase, Urine 2+ (Neg); Nitrite, Urine Neg (Neg); Protein, Urine 3+ (Neg); Urobilinogen, Urine NORM (Normal)
[2024-09-17 05:17] LABS: Appearance, Urine Clear (Clear); Bacteria Few /hpf; Color, Urine Pale Yellow (P-Yellow); Red Blood Cells, Urine Not Seen /hpf (0-2); Squamous Epithelial Cells Not Seen /hpf (Few)
[2024-09-17 05:18] LABS: Amorphous Light (0-Heavy); Hyaline Casts 0-2 /lpf (0-2); Yeast/Fungi Urine Few /hpf
[2024-09-17] MEDS ORDERED: Ondansetron 4 MG TAB PO PRN (05:20)
[2024-09-17] MEDS ORDERED: Metoclopramide HCl 5MG / ML 2ML Vial IV PRN (05:25)
[2024-09-17] MEDS ORDERED: FLU VACC TS2024-25(6MOS UP)/PF 45 MCG/0.5 ML SYRINGE IM ONE (05:25)
[2024-09-17] MEDS ORDERED: OxyCODONE HCL 5 MG TAB PO PRN (05:35)
[2024-09-17] MEDS ORDERED: HydrALAZINE HCl 20 MG / ML 1ML Vial IV PRN (05:40)
[2024-09-17] MEDS ORDERED: Albuterol 2.5 MG/3 ML VIAL INH PRN (06:10)
--- NOTE | 2024-09-17 07:23 | NUR ---
PT DYE LAB TECHNICIAN LIGHT, C/O CP X15 MIN. PT STS HE USUALLY TAKE NITRO AT HOME. RADIOLOGICAL HEALTH SPECIALIST REPORTS PT IN SR IN 60'S. NOC SHIFT CALL DR HAUSER AND MADE AWARE. BEDSIDE REPORT AT THIS TIME.
[2024-09-17] MEDS ORDERED: Nitroglycerin 0.4 MG SUBL SL ONE (07:25)
--- NOTE | 2024-09-17 07:36 | NUR ---
PT REPORTS PAIN GOING FROM 6-7/10 TO 5/10.
--- NOTE | 2024-09-17 07:48 | NUR ---
PT NOW REPORTS PAIN LEVEL 4/10, STS HE IS COMFORTABLE. "I'M DOING ALRIGHT." NADN. DR HAUSER CALLED.
--- NOTE | 2024-09-17 07:57 | NUR ---
SHIFT SUMMARY S/P SYNCOPAL EPISODES. TELE IN USE, SINUS RHYTHM @ 64 - VSS, O2 SAT >90% ON 3L O2 VIA NC. NPO AT THIS TIME. PT REPORTED CHEST PRESSURE THIS AM, DR HAUSER NOTIFIED OF PT VS & SYMPTOMS. ONE TIME DOSE OF NITRO ORDERED, PT REPORTS PAIN DECREASING S/P MED ADMINISTRATION. PT RESTED IN BED T/O NIGHT c MIN SLEEP. PT EAGER FOR PO INTAKE. CALL LIGHT IN REACH, BED IN LOWEST POSITION, REPORT GIVEN TO DAY RN.
[2024-09-17] MEDS ORDERED: Insulin Glargine-Yfgn 100 Unit/mL 3 ML SYR SC SCH (09:00)
[2024-09-17] MEDS ORDERED: Apixaban 5 MG Tab PO SCH (09:00)
[2024-09-17] MEDS ORDERED: Metoprolol Succinate 50 MG TABCR PO SCH (09:00)
[2024-09-17] MEDS ORDERED: Polyethylene Glycol 3350 17 gm PO SCH (09:00)
[2024-09-17] MEDS ORDERED: Empagliflozin 10 MG TAB PO SCH (09:00)
[2024-09-17] MEDS ORDERED: Sacubitril/Valsartan 24 MG-26 MG Tab PO SCH (09:00)
[2024-09-17] MEDS ORDERED: Docusate Sodium 250 MG Cap PO SCH (09:00)
[2024-09-17] MEDS ORDERED: Losartan Potassium 50 MG Tab PO SCH (09:00)
[2024-09-17] MEDS ORDERED: Furosemide 40 MG Tab PO SCH (09:00)
--- NOTE | 2024-09-17 09:07 | NUR ---
DR HAUSER AWARE OF CP 01/05. PT APPEARS COMFORTABLE. PT WILL STAY NPO AT THIS TIME.
--- NOTE | 2024-09-17 10:11 | NUR ---
ORTHOSTATIC VITAL SIGNS DONE.
[2024-09-17] MEDS ORDERED: Gabapentin 300 MG Cap PO PRN (16:20)
--- NOTE | 2024-09-17 16:24 | NUR ---
PT STS HE IS HAVING NEUROPATHY PAIN AND BECOMING VERY IRRITABLE. DR HAUSER CALLED AND NOTIFIED. ORDERS RECEIVED.
[2024-09-17] MEDS ORDERED: Insulin Human Lispro 100 Units/ML 3ML Syringe SC SCH (16:30)
--- NOTE | 2024-09-17 17:20 | NUR ---
CALL TO PHARMACY REQUESTING INSULIN QUICKPEN
[2024-09-17] MEDS ORDERED: FentaNYL Citrate 50 MCG/ML 2 ML Injection IV ONE (17:25)
--- NOTE | 2024-09-17 17:54 | NUR ---
CALL TO PHARMACY REQUESTING INSULIN QUICKPEN.
--- NOTE | 2024-09-17 18:15 | NUR ---
SHIFT SUMMARY PT A/OX4, NO EPISODES OF NEAR SYNCOPE OR SYNCOPE DURING SHIFT. PT HAD EPISODE OF CP THIS MORNING THAT RESOLVED AFTER NITRO X1. ORTHOSTATIC VITALS DONE THIS MORNING AND NORMAL. PT CHANGED FROM NPO STATUS TO REG DIET. PT REMAINED ON TELE W/O CARDIAC EVENTS. PT HAD EPISODE OF SEVERE NEUROPATHY PAIN AND PROVIDER WAS NOTIFIED. PT WAS MEDICATED PER ORDER AND WAS VERY IRRITABLE WITH STAFF, BUT SEEMS TO BE RESOLVING NOW HE IS MORE CALM AND ABLE TO FOCUS ON OTHER THINGS BESIDES THE PAIN. NO OTHER ISSUES NOTED.
--- NOTE | 2024-09-17 20:58 | NUR ---
TRANSFER PT TRANSFERED TO 304 AT APPROX 194. PT SENT WITH ALL BELONGINGS. CHANDRIKA IRVING TO TAKE OVER CARE OF PT
[2024-09-17] MEDS ORDERED: Gabapentin 300 MG Cap PO SCH (21:00)
--- NOTE | 2024-09-17 22:12 | NUR ---
HS B. RESIDENT, ON-CALL HOSPITALIST NOTIFIED. RESIDENT CHANGING THE LOW CS TO HIGH CS PER PHONE CONVERSTATION.
[2024-09-17] MEDS ORDERED: SOLTICE QUICK-R85 GM TOP (23:24)
[2024-09-17] MEDS ORDERED: LATA.005SO BOTHEYES (23:25)
[2024-09-17] MEDS ORDERED: Azopt10 ML LEFTEYE (23:26)
[2024-09-17] MEDS ORDERED: [UNRECOGNIZED DRUG - OTHER] TD (23:29)
[2024-09-17] MEDS ORDERED: CAMPHOR TD (23:29)
[2024-09-17] MEDS ORDERED: MENTHOL TD (23:29)
[2024-09-17] MEDS ORDERED: POTA10T PO (23:35)
[2024-09-17] MEDS ORDERED: EXTRA PAIN REL1 EAC2 PO (23:37)
[2024-09-17] MEDS ORDERED: FLONASE ALLERG9.9 M2 (23:39)
[2024-09-17] MEDS ORDERED: STIOLTO RESPIMAT4 G2 INH (23:41)
[2024-09-17] MEDS ORDERED: SPIR25 PO (23:42)
[2024-09-17] MEDS ORDERED: ALBUTEROL1.25 MG/3 INH (23:43)
[2024-09-17] MEDS ORDERED: CALCIPOTRIENE60 G3 TOP (23:48)
[2024-09-17] MEDS ORDERED: NEURONTIN300 MG PO (23:50)
--- NOTE | 2024-09-18 01:24 | NUR ---
TRANSFER/SHIFT SUMMARY PT ARRIVED TO MEDICAL FLOOR RM#[id number] @2200. PT IS A&O X4, ABLE TO MAKE HIS NEEDS KNOWN AND COOPERATIVE WITH CARE. PT HAS A BEDSIDE URINAL, AND STANDING UP BY THE BEDSIDE TO VOID. PT C/O BILATERAL LE PAIN, MEDICATED WITH OXYCODONE ORDERED WITH GOOD EFFECTIVNESS. PT IS ON RA, AND AT NOC WEARING CPAP. CONTINUOUS PULSE OXIMETER >94%. NS INFUSING @100MLS/HR. POWERGLIDE ON NAHID. HS B, RESIDENT/ ON-CALL NOTIFIED. SLIDING SCALE WAS CHANGED FROM LOW TO HIGH PER RESIDENT. TELE: SINUS CORRINA @57 WITH 1ST DEGREE HB. NO ACUTE EVENTS SINCE ARRIVAL TO THE MEDICAL FLOOR. BED AT THE LOWEST POSITION, CALL LIGHT WITHIN REACH.
[2024-09-18 04:31] VITALS: BP 180/92
[2024-09-18 04:47] LABS: BASOPHILS ABSOLUTE AUTO 0.08 K/mm3 (0.00-0.23); BASOPHILS PERCENT AUTO 1 % (0-2); EOSINOPHILS ABSOLUTE AUTO 0.31 K/mm3 (0.00-0.68); EOSINOPHILS PERCENT AUTO 4 % (0-6); Hematocrit 50.2 % (37.0-53.0); Hemoglobin 16.5 g/dL (13.5-17.5); IMMATURE GRAN ABSOLUTE AUTO 0.06 K/mm3 (0.00-0.10); IMMATURE GRAN PERCENT AUTO 1 % (0-1); LYMPHOCYTES ABSOLUTE AUTO 1.99 K/mm3 (0.84-5.20); LYMPHOCYTES PERCENT AUTO 28 % (21-46); MONOCYTES ABSOLUTE AUTO 0.57 K/mm3 (0.16-1.47); MONOCYTES PERCENT AUTO 8 % (4-13); Mean Corpuscular HGB 29.2 pg (26.0-34.0); Mean Corpuscular HGB Conc 32.9 g/dL (31.5-36.5); Mean Corpuscular Volume 89 fL (80-100); Mean Platelet Volume 11.3 fL (9.1-12.4); NEUTROPHILS ABSOLUTE AUTO 4.13 K/mm3 (1.96-9.15); NEUTROPHILS PERCENT AUTO 58 % (41-73); Platelet Count 194 K/mm3 (150-400); RDW Coefficient Variation 14.1 % (11.7-14.2); RDW Standard Deviation 45.2 fL (35.1-46.3); Red Blood Cell Count 5.66 M/mm3 (4.30-5.90); White Blood Cell Count 7.14 K/mm3 (4.00-11.30)
[2024-09-18 05:13] LABS: Albumin, Blood 2.8 g/dL (3.4-5.0); Anion Gap 11 mmol/L (3-11); Blood Urea Nitrogen 31 mg/dL (8-24); Bun/Creatinine Ratio 25.6 (12.0-20.0); CO2, Blood 30 mmol/L (21-32); Calcium, Blood 9.5 mg/dL (8.5-10.1); Chloride, Blood 100 mmol/L (98-108); Creatinine, Blood 1.21 mg/dL (0.60-1.20); Glomerular Filtration Rate 62 (60-); Glucose, Blood 320 mg/dL (70-99); Phosphorus, Blood 4.7 mg/dL (2.5-4.9); Potassium, Blood 4.6 mmol/L (3.5-5.5); Sodium, Blood 136 mmol/L (136-145)
[2024-09-18 07:20] VITALS: BP 177/88
[2024-09-18] MEDS ORDERED: Insulin Regular 100 UNIT/ML 10ML Vial SC SCH (07:30)
[2024-09-18] MEDS ORDERED: HydrALAZINE HCl 20 MG / ML 1ML Vial IV PRN (07:50)
--- NOTE | 2024-09-18 09:02 | NUR ---
NOTIFIED DR. HAUSER OF B/P OF THIS AM AND WET SOUNDING COUGH. PT LUNG SOUNDS HAVE CRACKLES IN BASES. ORDERED TO D/C FLUID INFUSION AND EDIT HYDRALAZINE FROM 5 MG PRN TO 10 MG Q4 PRN. PATIENT IS ALSO FRUSTRATED NO DOCTOR HAS DISCUSSED LAB OR IMAGING RESULTS WITH HIM. RELAYED TO DR. HAUSER IF HE COULD SIT DOWN AND DISCUSS THIS WITH THE PATIENT TODAY.
[2024-09-18 11:58] VITALS: BP 155/91
[2024-09-18] MEDS ORDERED: [UNRECOGNIZED DRUG - OTHER] SC ONE (12:00)
[2024-09-18] MEDS ORDERED: INSULIN NPH HUMAN ISOPHANE 100 UNIT/ML SC ONE (12:00)
[2024-09-18] MEDS ORDERED: Spironolactone 25 MG Tab PO SCH (14:00)
[2024-09-18] MEDS ORDERED: Sacubitril/Valsartan 97 mg-103 mg Tab PO SCH (14:00)
[2024-09-18] MEDS ORDERED: Atorvastatin 40 MG Tab PO SCH (14:00)
[2024-09-18 14:43] VITALS: BP 163/97
[2024-09-18 14:47] VITALS: BP 151/96
[2024-09-18] MEDS ORDERED: Nitroglycerin 0.4 MG SUBL SL PRN (14:50)
[2024-09-18] MEDS ORDERED: Insulin Human Lispro 100 Units/ML 3ML Syringe SC SCH (16:30)
--- NOTE | 2024-09-18 19:28 | NUR ---
SHIFT SUMMARY PATIENT ALERT AND ORIENTED. TELE MONITORING. PHARMACIST ROUNDED TO RECONCILE MEDICATIONS PATIENT NOT ABLE TO PROVIDE. DR HAUSER MADE CHANGES TO INSULIN COVERAGE. PT CAME TO EVALUATE PATIENT AROUND 1400 AND NOT LONG AFTER PT CALLED TO REPORT SHARP PAIN IN THE CHEST. NOTIFIED DR. HAUSER WHO ORDERED NITRO PRN SL, EKG, AND TROP. 1 DOSE OF NITOR WAS GIVEN WITH REPORTED RELIEF. EKG WAS SAME PRIOR IN ED. AND TROP CAME BACK WNL. PT HAS NOT REPORTED ANY CHEST PAIN SINCE. NO INSULIN COVERAGE NEEDED WITH DINNER. REPROT GIVEN TO DODIE VILLAVICENCIO.
[2024-09-18 19:33] VITALS: BP 130/74
[2024-09-18] MEDS ORDERED: Insulin Glargine-Yfgn 100 Unit/mL 3 ML SYR SC SCH (21:00)
[2024-09-19 02:46] VITALS: BP 139/94
--- NOTE | 2024-09-19 03:32 | NUR ---
SHIFT SUMMARY PT IS VERY PLEASANT AND COOPERATIVE WITH CARE. HS B,INSULIN ADMINISTERED ORDERED. TELE: SR @76 WITH 1ST DEGREE HB, OCCASIONAL PVC'S. PT DENIES CHEST PAIN/PRESSURE DURING THIS SHIFT. CPAP DURING THE NIGHT HRS, CONTINUOUS PULSE OX>94%. AT TIMES, PT STANDING BY THE SIDE OF THE BED USING URINAL, STEADY GAIT. NO ACUTE EVENTS DURING THIS SHIFT. BED AT THE LOWEST POSITION, CALL LIGHT WITHIN REACH. PT IS ABLE TO MAKE HIS NEEDS KNOWN. PT EDUCATED R/T 2-PERSON ASSISTANCE WITH FWW WHEN AMBULATING FOR SAFETY, ORDERED PER PT.
[2024-09-19 05:44] LABS: BASOPHILS ABSOLUTE AUTO 0.06 K/mm3 (0.00-0.23); BASOPHILS PERCENT AUTO 1 % (0-2); EOSINOPHILS ABSOLUTE AUTO 0.26 K/mm3 (0.00-0.68); EOSINOPHILS PERCENT AUTO 4 % (0-6); Hematocrit 50.9 % (37.0-53.0); Hemoglobin 16.8 g/dL (13.5-17.5); IMMATURE GRAN ABSOLUTE AUTO 0.05 K/mm3 (0.00-0.10); IMMATURE GRAN PERCENT AUTO 1 % (0-1); LYMPHOCYTES PERCENT AUTO 22 % (21-46); MONOCYTES ABSOLUTE AUTO 0.58 K/mm3 (0.16-1.47); MONOCYTES PERCENT AUTO 8 % (4-13); Mean Corpuscular HGB 29.3 pg (26.0-34.0); Mean Corpuscular Volume 89 fL (80-100); Mean Platelet Volume 11.3 fL (9.1-12.4); NEUTROPHILS ABSOLUTE AUTO 4.63 K/mm3 (1.96-9.15); NEUTROPHILS PERCENT AUTO 65 % (41-73); Platelet Count 194 K/mm3 (150-400); RDW Coefficient Variation 13.9 % (11.7-14.2); RDW Standard Deviation 45.4 fL (35.1-46.3); Red Blood Cell Count 5.73 M/mm3 (4.30-5.90); White Blood Cell Count 7.18 K/mm3 (4.00-11.30)
[2024-09-19 06:07] LABS: Bun/Creatinine Ratio 29.5 (12.0-20.0); Creatinine, Blood 1.12 mg/dL (0.60-1.20); Potassium, Blood 4.4 mmol/L (3.5-5.5)
[2024-09-19 07:48] VITALS: BP 167/94
[2024-09-19] MEDS ORDERED: Insulin Glargine-Yfgn 100 Unit/mL 3 ML SYR SC SCH ×2 (08:00→21:00)
[2024-09-19] MEDS ORDERED: HydroCHLOROthiazide 25 mg Tab PO SCH (08:30)
[2024-09-19] MEDS ORDERED: Spironolactone 50 MG Tab PO SCH (08:30)
[2024-09-19 10:52] VITALS: BP 148/92
[2024-09-19] MEDS ORDERED: Tiotropium Bromide 2.5 MCG/ACT MIST INHAL (10 ACT/4 GM) INH SCH (13:35)
[2024-09-19] MEDS ORDERED: DiphenhydrAMINE HCL/Zinc Acet Cream TOP PRN (13:40)
[2024-09-19] MEDS ORDERED: Mometasone/Formoterol MDI 200/5 mcg 13 GM INH SCH (13:45)
[2024-09-19] MEDS ORDERED: Acetaminophen/Aspirin/Caffeine 250/250/65 MG PO PRN (13:45)
[2024-09-19] MEDS ORDERED: Amoxicillin 500 MG Cap PO SCH (14:00)
[2024-09-19] MEDS ORDERED: Dorzolamide 2% Opth Soln LEFTEYE SCH (14:00)
[2024-09-19 15:38] VITALS: BP 171/91
--- NOTE | 2024-09-19 16:02 | NUR ---
Pt. is awake in bed and welcomes my visit. Pt. is pleasant. Pt. verbalized his expectation that he would be discharged to a local rehab facility. Considered matters of brunilda and care. Prayed with Pt. Pt verbalized gratitude for the spiritual care visit and welcomed this railroad car repairman to return.
[2024-09-19 16:46] VITALS: BP 155/74
[2024-09-19] MEDS ORDERED: Neomycin/Polymyxin/Hydrocort Otic 10 ml RIGHTEAR SCH (18:00)
--- NOTE | 2024-09-19 18:32 | NUR ---
PATIENT IS ALERT AND ORIENTED AND COOPERATIVE WITH CARE. C/O RIGHT EAR PAIN. WORKED WITH PT TODAY AND MADE SOME PROGRESS IT SEEMS WITH AMBULATING. PATIENT SHOWERED TODAY. PLAN IS TO DC TO A SNF WHEN ACCEPTED. NO IV ACCESS ORDER. NO C/O LIGHTHEADEDNESS OR DIZZINESS. WILL CONTINUE TO MONITOR
[2024-09-19 19:34] VITALS: BP 153/89
[2024-09-19] MEDS ORDERED: Latanoprost 0.005% Opth Soln 2.5 ML BOTHEYES SCH (21:00)
[2024-09-19] MEDS ORDERED: Tamsulosin HCl 0.4 MG Cap PO SCH (21:00)
[2024-09-20 02:04] VITALS: BP 97/68
[2024-09-20 05:28] LABS: Bun/Creatinine Ratio 28.5 (12.0-20.0); Creatinine, Blood 1.44 mg/dL (0.60-1.20); Potassium, Blood 4.1 mmol/L (3.5-5.5)
--- NOTE | 2024-09-20 05:43 | NUR ---
SHIFT SUMMARY: Pt is admitted for syncope and is a full code. Is alert and able to make needs known. ADLs have been SBA - 1 depending on how he was feeling. Pain was managed with PRN pain medication. tawanna reports sinus in the 70s with a 1st deg.
[2024-09-20 05:51] VITALS: BP 118/75
[2024-09-20 07:16] VITALS: BP 108/67
[2024-09-20] MEDS ORDERED: Furosemide 40 MG Tab PO SCH (09:00)
[2024-09-20] MEDS ORDERED: Cholecalciferol 1000 Unit Tablet (=25MCG) PO SCH (09:00)
[2024-09-20] MEDS ORDERED: Insulin Glargine-Yfgn 100 Unit/mL 3 ML SYR SC SCH ×2 (09:00→21:00)
[2024-09-20] MEDS ORDERED: Clopidogrel Bisulfate 75 MG Tab PO SCH (09:00)
[2024-09-20] MEDS ORDERED: Ascorbic Acid 500 MG Tab PO SCH (09:00)
[2024-09-20 15:17] VITALS: BP 102/68
--- NOTE | 2024-09-20 17:21 | NUR ---
PT AOX4 AND COOPERATIVE OF CARE. PT HAS BEEN SITTING UP ON SIDE OF THE BED A BIT AND USES URINAL AT BEDSIDE. PT TREATED FOR BACKP PAIN PER EMAR. NO DISTRESS NOTED AND CAN CALL APPRIOPRIATELY. WILL CONTINUE TO MONITOR.
[2024-09-20 19:20] VITALS: BP 112/74
[2024-09-20] MEDS ORDERED: Dorzolamide 2% Opth Soln LEFTEYE SCH (21:00)
[2024-09-20] MEDS ORDERED: Latanoprost 0.005% Opth Soln 2.5 ML BOTHEYES SCH (21:00)
[2024-09-21 02:50] VITALS: BP 114/68
--- NOTE | 2024-09-21 05:22 | NUR ---
AAOX4, USES CALL LIGHT FOR NEEDS. TELE IN PLACE. 2L O2 VIA NC WHILE AWAKE. CPAP @ HS. NO IV AND MD AWARE. [facility] BLOOD GLUCOSE CHECKS. AMBULTES TO BR OR USES URINAL @ BEDSIDE. PLAN TO GO TO SNF FOR REHAB.
[2024-09-21 07:24] VITALS: BP 100/69
[2024-09-21 08:58] LABS: Bun/Creatinine Ratio 33.5 (12.0-20.0); Creatinine, Blood 1.55 mg/dL (0.60-1.20); Potassium, Blood 3.9 mmol/L (3.5-5.5)
[2024-09-21] MEDS ORDERED: Spironolactone 25 MG Tab PO SCH (09:00)
[2024-09-21] MEDS ORDERED: Sacubitril/Valsartan 49 MG/51 MG Tab PO SCH (09:00)
[2024-09-21 15:24] VITALS: BP 107/74
--- NOTE | 2024-09-21 16:37 | NUR ---
NO ACUTE CHANGES PT IS DOING WELL AND IS INDEPENDENT AT BEDSIDE. PT WILL REQUEST A STANDBY AT TIMES GOING TO RESTROOM WITH WALKER. PT TREATED FOR BACK PAIN PER EMAR. NO DISTRESS NOTED WILL CONTINUE TO MONITOR.
[2024-09-21] MEDS ORDERED: Insulin Glargine-Yfgn 100 Unit/mL 3 ML SYR SC SCH (21:00)
[2024-09-21] MEDS ORDERED: Gabapentin 300 MG Cap PO SCH (21:00)
[2024-09-21 22:00] VITALS: BP 150/78
[2024-09-22 04:04] VITALS: BP 124/76
[2024-09-22 05:37] LABS: Bun/Creatinine Ratio 37.1 (12.0-20.0); Calcium, Blood 9.1 mg/dL (8.5-10.1); Creatinine, Blood 1.4 mg/dL (0.60-1.20); Potassium, Blood 4.4 mmol/L (3.5-5.5)
--- NOTE | 2024-09-22 06:15 | NUR ---
PT WOULD LIKE HIS CARES GROUPED TOGETHER, HE IS TIRED OF BEING AWOKEN SO OFTEN. HE WOULD NOT LET MEDICAL CONCIERGE DO HIS VS. LISTENED OFFERED SUPPORT AND TRIED TO GROUP CARES/MEDS TOGETHER OR WHILE HE WAS AWAKE. AAOX4, AMBULTES WITH HIS WALKER, SLOW STEADY GAIT. USES CALL LIGHT APPROPRIATELY.
[2024-09-22 07:30] VITALS: BP 131/77
[2024-09-22] MEDS ORDERED: Furosemide 20 MG Tab PO SCH (09:00)
[2024-09-22 11:20] LABS: SARS-Cov-2 (COVID-19) PCR, MMC NEGATIVE (NEGATIVE)
[2024-09-22] MEDS ORDERED: AMOX500 PO (13:15)
[2024-09-22] MEDS ORDERED: ATOR80 PO (13:17)
[2024-09-22] MEDS ORDERED: HUMALOG KW100 UNIT/1 SC (13:26)
--- NOTE | 2024-09-22 17:01 | NUR ---
PT DISCHARGE HOME WITH HOME HEALTH AT 1530. ALL PAPERWORK WAS REVIEWED AND EDUCATIONAL MATERIAL SENT WITH PT. PT HAS 4 WHEEL WALKER DROPPED OFF PRIOR TO DISCHARGE AND HAD A RIDE HOME WITH A TAXI ARRANGED BY HIRAL. ALL PERSONAL BELONGINGS WERE COLLECTED AND WITH PT. AOX4 AND COOPERATIVE OF CARE.PT ABLE TO AMBULATE INDEPENDENTLY TO RESTOOM WITH WALKER. NO DISTRESS NOTED.
== END 2024-09-22 16:10 | disposition home health service (06) | DRG 291 ==
LOC: ER 00:18 → MEDS 02:16 → SURS 02:16 → MEDS 20:01
PROVIDERS: Emergency Medicine; Family Medicine; Internal Medicine; ADMIT Student in an Organized Health Care Education/Training Program
DX: I13.0 Hypertensive heart and chronic kidney disease with heart failure and stage 1 through stage 4 chronic kidney disease, or unspecified chronic kidney disease (principal); I50.23 Acute on chronic systolic (congestive) heart failure; N17.9 Acute kidney failure, unspecified; B18.1 Chronic viral hepatitis B without delta-agent; R00.1 Bradycardia, unspecified; I25.10 Atherosclerotic heart disease of native coronary artery without angina pectoris; E78.00 Pure hypercholesterolemia, unspecified; K80.20 Calculus of gallbladder without cholecystitis without obstruction; H60.91 Unspecified otitis externa, right ear; K04.7 Periapical abscess without sinus; N18.30 Chronic kidney disease, stage 3 unspecified; E11.39 Type 2 diabetes mellitus with other diabetic ophthalmic complication; G89.29 Other chronic pain; I48.91 Unspecified atrial fibrillation; M25.551 Pain in right hip; M54.9 Dorsalgia, unspecified; Z60.2 Problems related to living alone; J44.9 Chronic obstructive pulmonary disease, unspecified; G47.33 Obstructive sleep apnea (adult) (pediatric); E11.40 Type 2 diabetes mellitus with diabetic neuropathy, unspecified; I08.0 Rheumatic disorders of both mitral and aortic valves; H42 Glaucoma in diseases classified elsewhere; N40.0 Benign prostatic hyperplasia without lower urinary tract symptoms; I25.2 Old myocardial infarction; Z86.73 Personal history of transient ischemic attack (TIA), and cerebral infarction without residual deficits; Z95.5 Presence of coronary angioplasty implant and graft; Z98.890 Other specified postprocedural states; Z87.891 Personal history of nicotine dependence; Z88.2 Allergy status to sulfonamides; Z88.8 Allergy status to other drugs, medicaments and biological substances; Z88.5 Allergy status to narcotic agent; Z79.01 Long term (current) use of anticoagulants; Z79.02 Long term (current) use of antithrombotics/antiplatelets; Z79.84 Long term (current) use of oral hypoglycemic drugs; Z79.4 Long term (current) use of insulin; Z79.899 Other long term (current) drug therapy
CPT/HCPCS: 0241U; 36415; 70450; 72192; 73502; 76705; 80048; 80053; 80069; 81001; 82947; 83605; 83735; 84100; 84484; 85025; 87086; 93005; 93010; 93306; 94640; 94660; 94664; 94762; 97116; 97162; 97530; 99285-25; A9270; J0360; J1815; J3010; J7030; U0002

== ENCOUNTER 2025-01-13 17:18 | Emergency (ER) | payer OTHER, MEDICARE ==
[~2025-01-13] VITALS: Ht 172.7 cm; Wt 83.9 kg
[~2025-01-13 17:18] MED LIST changes: +ACETAMINOPHEN500 MG PO; +ALBUTEROL1.25 MG/3 INH; +AMOX500 PO; +Azopt10 ML LEFTEYE; +BACITRACIN ZIN1 EAC1 TOP; +CALCIPOTRIENE60 G3 TOP; +CAMPHOR TD; +FLONASE ALLERG9.9 M2; +Isosorbide Mono30 MG PO; +MENTHOL TD; +METO100ER PO; +NEURONTIN300 MG PO; +POTA10T PO; +SOLTICE QUICK-R85 GM TOP; +SPIR25 PO; +STIOLTO RESPIMAT4 G2 INH; +[UNRECOGNIZED DRUG - OTHER] TD
[2025-01-13] MEDS ORDERED: Ondansetron HCl 2 MG / ML 2ML Vial IV PRN (17:35)
[2025-01-13] MEDS ORDERED: Lactated Ringer's 500 ML IV ONE (17:55)
[2025-01-13] MEDS ORDERED: Ondansetron HCl 2 MG / ML 2ML Vial IV ONE (18:00)
[2025-01-13 19:43] LABS: Source, Urine Clean Catch
[2025-01-13 19:46] LABS: Appearance, Urine Clear (Clear); Bilirubin, Urine Neg (Neg); Blood, Urine 1+ (Neg); Color, Urine Yellow (P-Yellow); Glucose Qualitative, Urine 4+ (Neg); Ketones, Urine Neg (Neg); Leukocyte Esterase, Urine Neg (Neg); Nitrite, Urine Neg (Neg); Protein, Urine 3+ (Neg); Urobilinogen, Urine NORM (Normal)
[2025-01-13 19:53] LABS: Bacteria Rare /hpf; Squamous Epithelial Cells Rare /hpf (Few); White Blood Cells, Urine 0-2 /hpf (0-5)
[2025-01-13 19:57] LABS: BASOPHILS ABSOLUTE AUTO 0.04 K/mm3 (0.00-0.23); BASOPHILS PERCENT AUTO 1 % (0-2); EOSINOPHILS ABSOLUTE AUTO 0.01 K/mm3 (0.00-0.68); EOSINOPHILS PERCENT AUTO 0 % (0-6); Hematocrit 49.6 % (37.0-53.0); Hemoglobin 16.8 g/dL (13.5-17.5); IMMATURE GRAN ABSOLUTE AUTO 0.04 K/mm3 (0.00-0.10); IMMATURE GRAN PERCENT AUTO 1 % (0-1); LYMPHOCYTES ABSOLUTE AUTO 0.48 K/mm3 (0.84-5.20); LYMPHOCYTES PERCENT AUTO 6 % (21-46); MONOCYTES ABSOLUTE AUTO 0.09 K/mm3 (0.16-1.47); MONOCYTES PERCENT AUTO 1 % (4-13); Mean Corpuscular HGB Conc 33.9 g/dL (31.5-36.5); Mean Corpuscular Volume 89 fL (80-100); Mean Platelet Volume 12.2 fL (9.1-12.4); NEUTROPHILS ABSOLUTE AUTO 7.84 K/mm3 (1.96-9.15); NEUTROPHILS PERCENT AUTO 92 % (41-73); Platelet Count 191 K/mm3 (150-400); RDW Coefficient Variation 13.3 % (11.7-14.2); RDW Standard Deviation 43.3 fL (35.1-46.3)
[2025-01-13] MEDS ORDERED: Ondansetron HCl 2 MG / ML 2ML Vial ONE (20:06)
[2025-01-13 20:07] LABS: Base Excess Venous 2.3 mmol/L; Bicarbonate Venous 24.7 mmol/L (24.0-30.0); PCO2 Venous 53.7 mmHg (38-42); pH Blood Venous 7.33 (7.34-7.37)
[2025-01-13 20:24] LABS: Alanine Aminotransfer (ALT/SGP 26 U/L (12-78); Albumin/Globulin Ratio 0.8 (0.8-1.8); Alk Phos 81 U/L (50-136); Anion Gap 11 mmol/L (3-11); Aspartate Aminotrans (AST/SGOT 20 U/L (12-37); Bilirubin, Total 0.4 mg/dL (0.1-1.0); Blood Urea Nitrogen 33 mg/dL (8-24); Bun/Creatinine Ratio 29.5 (12.0-20.0); CO2, Blood 26 mmol/L (21-32); Calcium, Blood 9.1 mg/dL (8.5-10.1); Chloride, Blood 95 mmol/L (98-108); Creatinine, Blood 1.12 mg/dL (0.60-1.20); Globulin, Blood 3.8 g/dL (2.2-4.0); Glomerular Filtration Rate 68 (60-); Glucose, Blood 692 mg/dL (70-99); Potassium, Blood 5.2 mmol/L (3.5-5.5); Sodium, Blood 127 mmol/L (136-145); Total Protein, Blood 6.8 g/dL (6.4-8.2)
[2025-01-13] MEDS ORDERED: Insulin Regular 100 Unit/ML 1ML Dose IV ONE (20:50)
[2025-01-13 22:19] LABS: Influenza A, PCR NEGATIVE (NEGATIVE); Influenza B, PCR NEGATIVE (NEGATIVE); Resp Syncytial Virus, PCR NEGATIVE (NEGATIVE); SARS-Cov-2 (COVID-19) PCR, MMC NEGATIVE (NEGATIVE)
[2025-01-13 23:30] VITALS: BP 156/96
== END 2025-01-13 23:44 | disposition home or self-care (01) ==
LOC: ER 17:18
PROVIDERS: Student in an Organized Health Care Education/Training Program
DX: E11.65 Type 2 diabetes mellitus with hyperglycemia (principal); T38.0X5A Adverse effect of glucocorticoids and synthetic analogues, initial encounter; J18.9 Pneumonia, unspecified organism; E11.40 Type 2 diabetes mellitus with diabetic neuropathy, unspecified; I11.0 Hypertensive heart disease with heart failure; I50.9 Heart failure, unspecified; J44.9 Chronic obstructive pulmonary disease, unspecified; G47.33 Obstructive sleep apnea (adult) (pediatric); Z88.8 Allergy status to other drugs, medicaments and biological substances; Z91.041 Radiographic dye allergy status; Z88.2 Allergy status to sulfonamides; Z88.5 Allergy status to narcotic agent; Z79.899 Other long term (current) drug therapy; Z79.4 Long term (current) use of insulin; Z79.01 Long term (current) use of anticoagulants; Z79.891 Long term (current) use of opiate analgesic; Z79.83 Long term (current) use of bisphosphonates; Z87.891 Personal history of nicotine dependence
CPT/HCPCS: 0241U; 71046; 80053; 81001; 82803; 82947; 83690; 85025; 96374; 99285-25; J1815; J2405; J7120

== ENCOUNTER → 2025-02-23 | Outpatient (CLI) | payer MEDICARE, OTHER ==
[2025-02-23 17:18] LABS: BASOPHILS ABSOLUTE AUTO 0.08 K/mm3 (0.00-0.23); BASOPHILS PERCENT AUTO 1 % (0-2); EOSINOPHILS PERCENT AUTO 4 % (0-6); Hemoglobin 16.3 g/dL (13.5-17.5); IMMATURE GRAN ABSOLUTE AUTO 0.06 K/mm3 (0.00-0.10); IMMATURE GRAN PERCENT AUTO 1 % (0-1); LYMPHOCYTES ABSOLUTE AUTO 1.37 K/mm3 (0.84-5.20); LYMPHOCYTES PERCENT AUTO 18 % (21-46); MONOCYTES ABSOLUTE AUTO 0.68 K/mm3 (0.16-1.47); MONOCYTES PERCENT AUTO 9 % (4-13); Mean Corpuscular HGB Conc 32.6 g/dL (31.5-36.5); Mean Corpuscular Volume 89 fL (80-100); NEUTROPHILS ABSOLUTE AUTO 4.99 K/mm3 (1.96-9.15); NEUTROPHILS PERCENT AUTO 67 % (41-73); Platelet Count 171 K/mm3 (150-400); Red Blood Cell Count 5.63 M/mm3 (4.30-5.90); White Blood Cell Count 7.48 K/mm3 (4.00-11.30)
[2025-02-23 19:32] LABS: Albumin, Blood 2.7 g/dL (3.4-5.0); Albumin/Globulin Ratio 0.8 (0.8-1.8); Bilirubin, Total 0.3 mg/dL (0.1-1.0); Bun/Creatinine Ratio 29.1 (12.0-20.0); Calcium, Blood 8.5 mg/dL (8.5-10.1); Globulin, Blood 3.6 g/dL (2.2-4.0); Potassium, Blood 4.4 mmol/L (3.5-5.5); Total Protein, Blood 6.3 g/dL (6.4-8.2)
== END | disposition home or self-care (01) ==
LOC: LAB SHORT 16:43 → LAB 16:43
PROVIDERS: Student in an Organized Health Care Education/Training Program
DX: I10 Essential (primary) hypertension (principal)
CPT/HCPCS: 80053; 85025

== ENCOUNTER 2025-03-12 16:30 | Emergency (ER) | payer MEDICARE, OTHER ==
[~2025-03-12] VITALS: Ht 188 cm; Wt 108.0 kg
[2025-03-12 17:08] LABS: BASOPHILS ABSOLUTE AUTO 0.08 K/mm3 (0.00-0.23); BASOPHILS PERCENT AUTO 1 % (0-2); EOSINOPHILS ABSOLUTE AUTO 0.26 K/mm3 (0.00-0.68); EOSINOPHILS PERCENT AUTO 3 % (0-6); Hematocrit 54.3 % (37.0-53.0); Hemoglobin 17.9 g/dL (13.5-17.5); IMMATURE GRAN ABSOLUTE AUTO 0.04 K/mm3 (0.00-0.10); IMMATURE GRAN PERCENT AUTO 0 % (0-1); LYMPHOCYTES ABSOLUTE AUTO 2.97 K/mm3 (0.84-5.20); LYMPHOCYTES PERCENT AUTO 33 % (21-46); MONOCYTES ABSOLUTE AUTO 0.81 K/mm3 (0.16-1.47); MONOCYTES PERCENT AUTO 9 % (4-13); Mean Corpuscular HGB 29.1 pg (26.0-34.0); Mean Corpuscular Volume 88 fL (80-100); Mean Platelet Volume 11.4 fL (9.1-12.4); NEUTROPHILS ABSOLUTE AUTO 4.98 K/mm3 (1.96-9.15); NEUTROPHILS PERCENT AUTO 55 % (41-73); Platelet Count 241 K/mm3 (150-400); RDW Coefficient Variation 14.5 % (11.7-14.2); RDW Standard Deviation 46.9 fL (35.1-46.3); Red Blood Cell Count 6.15 M/mm3 (4.30-5.90); White Blood Cell Count 9.14 K/mm3 (4.00-11.30)
[2025-03-12 17:20] LABS: Albumin, Blood 2.8 g/dL (3.4-5.0); Albumin/Globulin Ratio 0.6 (0.8-1.8); Bilirubin, Total 0.5 mg/dL (0.1-1.0); Bun/Creatinine Ratio 24.6 (12.0-20.0); Calcium, Blood 9.5 mg/dL (8.5-10.1); Creatinine, Blood 1.14 mg/dL (0.60-1.20); Globulin, Blood 4.9 g/dL (2.2-4.0); Potassium, Blood 4.2 mmol/L (3.5-5.5); Total Protein, Blood 7.7 g/dL (6.4-8.2)
[2025-03-12] MEDS ORDERED: OxyCODONE HCL 5 MG TAB PO ONE (17:55)
[2025-03-12] MEDS ORDERED: NS 1,000 ML IV SCH (18:25)
[2025-03-12 20:15] VITALS: BP 136/86
== END 2025-03-12 20:38 | disposition home or self-care (01) ==
LOC: ER 16:30
PROVIDERS: Emergency Medicine
DX: S70.02XA Contusion of left hip, initial encounter (principal); S09.90XA Unspecified injury of head, initial encounter; R07.9 Chest pain, unspecified; I12.9 Hypertensive chronic kidney disease with stage 1 through stage 4 chronic kidney disease, or unspecified chronic kidney disease; E11.22 Type 2 diabetes mellitus with diabetic chronic kidney disease; E78.5 Hyperlipidemia, unspecified; N18.2 Chronic kidney disease, stage 2 (mild); E11.40 Type 2 diabetes mellitus with diabetic neuropathy, unspecified; G47.33 Obstructive sleep apnea (adult) (pediatric); Z87.891 Personal history of nicotine dependence; Z79.2 Long term (current) use of antibiotics; Z88.8 Allergy status to other drugs, medicaments and biological substances; Z88.2 Allergy status to sulfonamides; Z79.4 Long term (current) use of insulin; Z88.5 Allergy status to narcotic agent; Z79.899 Other long term (current) drug therapy; X58.XXXA Exposure to other specified factors, initial encounter
CPT/HCPCS: 70450; 71046; 73502; 80053; 83690; 84484; 85025; 93005; 93010; 96360; 99285-25; A9270; J7030

== ENCOUNTER 2025-07-13 22:32 | Emergency (ER) | payer MEDICARE, OTHER ==
[~2025-07-13] VITALS: Ht 188 cm; Wt 107.5 kg
[2025-07-14] MEDS ORDERED: FentaNYL Citrate 50 MCG/ML 2 ML Injection IV PRN (01:25)
[2025-07-14 02:00] LABS: BASOPHILS ABSOLUTE AUTO 0.07 K/mm3 (0.00-0.23); BASOPHILS PERCENT AUTO 1 % (0-2); EOSINOPHILS ABSOLUTE AUTO 0.30 K/mm3 (0.00-0.68); EOSINOPHILS PERCENT AUTO 4 % (0-6); Hematocrit 44.2 % (37.0-53.0); Hemoglobin 14.5 g/dL (13.5-17.5); IMMATURE GRAN ABSOLUTE AUTO 0.03 K/mm3 (0.00-0.10); IMMATURE GRAN PERCENT AUTO 0 % (0-1); LYMPHOCYTES ABSOLUTE AUTO 1.90 K/mm3 (0.84-5.20); LYMPHOCYTES PERCENT AUTO 22 % (21-46); MONOCYTES ABSOLUTE AUTO 0.78 K/mm3 (0.16-1.47); MONOCYTES PERCENT AUTO 9 % (4-13); Mean Corpuscular HGB Conc 32.8 g/dL (31.5-36.5); Mean Corpuscular Volume 89 fL (80-100); NEUTROPHILS ABSOLUTE AUTO 5.61 K/mm3 (1.96-9.15); NEUTROPHILS PERCENT AUTO 65 % (41-73); NRBC ABSOLUTE 0.00 K/mm3 (0.00-0.02); NRBC Auto 0.0 /100 WBC (0.0-0.2); Platelet Count 185 K/mm3 (150-400); RDW Coefficient Variation 13.6 % (11.7-14.2); RDW Standard Deviation 44.3 fL (35.1-46.3)
[2025-07-14 02:09] LABS: Alanine Aminotransfer (ALT/SGP 18.0 U/L (12-78); Albumin, Blood 2.7 g/dL (3.4-5.0); Albumin/Globulin Ratio 0.9 (0.8-1.8); Anion Gap 9.0 mmol/L (3-11); Aspartate Aminotrans (AST/SGOT 13.0 U/L (12-37); Bilirubin, Total 0.2 mg/dL (0.1-1.0); Blood Urea Nitrogen 24.0 mg/dL (8-24); CO2, Blood 30.0 mmol/L (21-32); Calcium, Blood 8.2 mg/dL (8.5-10.1); Chloride, Blood 100.0 mmol/L (98-108); Creatinine, Blood 1.37 mg/dL (0.60-1.20); Globulin, Blood 3.0 g/dL (2.2-4.0); Glucose, Blood 209.0 mg/dL (70-99); Potassium, Blood 3.8 mmol/L (3.5-5.5); Sodium, Blood 135.0 mmol/L (136-145); Total Protein, Blood 5.7 g/dL (6.4-8.2)
[2025-07-14] MEDS ORDERED: Lidocaine 4% 1 Patch TOP ONE (04:00)
[2025-07-14] MEDS ORDERED: LIDO700A20 TOP (04:21)
[2025-07-14 04:30] VITALS: BP 91/79
== END 2025-07-14 05:59 | disposition home or self-care (01) ==
LOC: ER 22:32
PROVIDERS: Emergency Medicine
DX: S70.02XA Contusion of left hip, initial encounter (principal); S50.812A Abrasion of left forearm, initial encounter; I25.2 Old myocardial infarction; I25.10 Atherosclerotic heart disease of native coronary artery without angina pectoris; E11.9 Type 2 diabetes mellitus without complications; J44.9 Chronic obstructive pulmonary disease, unspecified; W18.30XA Fall on same level, unspecified, initial encounter; Z88.2 Allergy status to sulfonamides; Z88.5 Allergy status to narcotic agent; Z91.041 Radiographic dye allergy status; Z88.8 Allergy status to other drugs, medicaments and biological substances; Z79.4 Long term (current) use of insulin; Z79.899 Other long term (current) drug therapy; Z86.73 Personal history of transient ischemic attack (TIA), and cerebral infarction without residual deficits; Z95.5 Presence of coronary angioplasty implant and graft; Z87.891 Personal history of nicotine dependence; Z23 Encounter for immunization
CPT/HCPCS: 70450; 71045; 72125; 73080; 73502; 80053; 85025; 93005; 93010; 96374; 99285-25; A9270; J3010

== ENCOUNTER 2025-07-16 00:57 | Observation (INO) | payer OTHER, MEDICARE ==
[~2025-07-16] VITALS: Ht 188 cm; Wt 106.5 kg
[~2025-07-16 00:57] MED LIST changes: +LIDO700A20 TOP
[2025-07-16] MEDS ORDERED: Lidocaine 4% 1 Patch TOP ONE (05:55)
[2025-07-16] MEDS ORDERED: FentaNYL Citrate 50 MCG/ML 2 ML Injection IV ONE (09:00)
[2025-07-16] MEDS ORDERED: Morphine Sulfate 4 MG/1 ML Injection IV ONE (11:20)
[2025-07-16] MEDS ORDERED: HYDROmorphone HCl/Pf 1MG SYR IV ONE (12:25)
[2025-07-16] MEDS ORDERED: Ondansetron HCl 2 MG / ML 2ML Vial IV PRN (13:20)
[2025-07-16] MEDS ORDERED: Albuterol 2.5 MG/3 ML VIAL INH PRN (13:30)
[2025-07-16] MEDS ORDERED: FLU VACC TS2025(65UP)/MF59C/PF 45 MCG/0.5 ML SYRINGE IM SCH (13:40)
[2025-07-16] MEDS ORDERED: Insulin Regular 100 UNIT/ML 10ML Vial SC SCH (16:30)
--- NOTE | 2025-07-16 17:38 | NUR ---
ADMISSION NOTE: PATIENT ARRIVED TO THE UNIT AT 1722 VIA GURNEY. HE WAS TRANSFERRED ONTO THE BED. PATIENT VERY PAINFUL, LIMITED ABILITY TO MOVE OR TOLERATE MOVEMENT DUE TO PAIN. PATIENT SETTLED IN ROOM, VOIDED VIA URINAL, PROVIDED THE CALL LIGHT, VITALS AND BLOOD SUGAR OBTAINED, NO SIGNS OR SYMPTOMS OF DISTRESS, PLAN OF CARE ONGOING.
[2025-07-16 17:41] VITALS: BP 189/86
[2025-07-16 19:58] LABS: BASOPHILS ABSOLUTE AUTO 0.06 K/mm3 (0.00-0.23); BASOPHILS PERCENT AUTO 1 % (0-2); EOSINOPHILS ABSOLUTE AUTO 0.23 K/mm3 (0.00-0.68); EOSINOPHILS PERCENT AUTO 3 % (0-6); Hematocrit 38.0 % (37.0-53.0); Hemoglobin 12.6 g/dL (13.5-17.5); IMMATURE GRAN ABSOLUTE AUTO 0.04 K/mm3 (0.00-0.10); IMMATURE GRAN PERCENT AUTO 1 % (0-1); LYMPHOCYTES ABSOLUTE AUTO 1.10 K/mm3 (0.84-5.20); LYMPHOCYTES PERCENT AUTO 14 % (21-46); MONOCYTES ABSOLUTE AUTO 0.95 K/mm3 (0.16-1.47); MONOCYTES PERCENT AUTO 12 % (4-13); Mean Corpuscular HGB Conc 33.2 g/dL (31.5-36.5); Mean Corpuscular Volume 89 fL (80-100); NEUTROPHILS ABSOLUTE AUTO 5.51 K/mm3 (1.96-9.15); NEUTROPHILS PERCENT AUTO 70 % (41-73); NRBC ABSOLUTE 0.00 K/mm3 (0.00-0.02); NRBC Auto 0.0 /100 WBC (0.0-0.2); Platelet Count 162 K/mm3 (150-400); RDW Coefficient Variation 13.6 % (11.7-14.2); RDW Standard Deviation 44.6 fL (35.1-46.3)
[2025-07-16 19:59] VITALS: BP 180/92
[2025-07-16] MEDS ORDERED: Insulin Glargine 100 Unit/ML 3 ML SYR SC SCH (21:00)
--- NOTE | 2025-07-17 03:36 | NUR ---
SHIFT SUMMARY PT ALERT ORIENTED X 4 ABLE TO VERBALIZE NEEDS C/O PAIN TO HIS LT GLUTEAL R/T A HEMATOMA AND CONTUSION TO HIS LT GLUTEAL. HE HAD A FALL ON 07/13 AND SUSTAINED A LARGE HEMATOMA AND CONTUSION TO HIS LT GLUTEAL. HES HAVING A HARD TIME REPOSITIONING OR GETTING UP DUE TO THE PAIN CAUSED FROM THIS. REMAINS ON O2 AT 2L WHICH HE USES AT NIGHT AT HOME. FS DONE AC AND HS WAS 323 AND COVERAGE WAS GIVEN. HIS BP WAS SLIGHTLY INCREASED AT 180/92 AND I DID HIS MED RECONCILIATION. HE WAS GIVEN BACLOFEN TO HELP WITH THE PAIN AND HE SLEPT OFF AND ON ALL NIGHT. RESTING IN BED AT THIS TIME WITH CALL LIGHT IN REACH
[2025-07-17 05:47] VITALS: BP 214/89
[2025-07-17 05:54] VITALS: BP 200/110
--- NOTE | 2025-07-17 06:08 | NUR ---
PTS BP WAS 200/110 PT IS HAVING SEVERE PAIN ALL OVER BODY ESPECIALLY TO HIS ARMS AND LEGS. CALLED DR. SRIVASTAVA AND GOT A ORDER TO INCREASE THE OXYCODONE TO 5-10 Q6HR PRN. I INFORMED DR. SRIVASTAVA OF THE PTS BP AND HE STATED THAT HE WOULD LOOK AT CHART AND PUT IN ORDERS
[2025-07-17 06:18] LABS: BASOPHILS ABSOLUTE AUTO 0.04 K/mm3 (0.00-0.23); BASOPHILS PERCENT AUTO 0 % (0-2); EOSINOPHILS ABSOLUTE AUTO 0.14 K/mm3 (0.00-0.68); EOSINOPHILS PERCENT AUTO 1 % (0-6); Hematocrit 44.0 % (37.0-53.0); Hemoglobin 14.5 g/dL (13.5-17.5); IMMATURE GRAN ABSOLUTE AUTO 0.03 K/mm3 (0.00-0.10); IMMATURE GRAN PERCENT AUTO 0 % (0-1); LYMPHOCYTES ABSOLUTE AUTO 1.29 K/mm3 (0.84-5.20); LYMPHOCYTES PERCENT AUTO 13 % (21-46); MONOCYTES ABSOLUTE AUTO 1.18 K/mm3 (0.16-1.47); MONOCYTES PERCENT AUTO 12 % (4-13); Mean Corpuscular HGB Conc 33.0 g/dL (31.5-36.5); Mean Corpuscular Volume 89 fL (80-100); NEUTROPHILS ABSOLUTE AUTO 7.01 K/mm3 (1.96-9.15); NEUTROPHILS PERCENT AUTO 72 % (41-73); NRBC ABSOLUTE 0.00 K/mm3 (0.00-0.02); NRBC Auto 0.0 /100 WBC (0.0-0.2); Platelet Count 186 K/mm3 (150-400); RDW Coefficient Variation 13.6 % (11.7-14.2); RDW Standard Deviation 44.7 fL (35.1-46.3)
[2025-07-17 06:42] LABS: Alanine Aminotransfer (ALT/SGP 16.0 U/L (12-78); Albumin, Blood 2.5 g/dL (3.4-5.0); Albumin/Globulin Ratio 0.6 (0.8-1.8); Anion Gap 7.0 mmol/L (3-11); Aspartate Aminotrans (AST/SGOT 15.0 U/L (12-37); Bilirubin, Total 0.5 mg/dL (0.1-1.0); Blood Urea Nitrogen 28.0 mg/dL (8-24); CO2, Blood 31.0 mmol/L (21-32); Calcium, Blood 8.7 mg/dL (8.5-10.1); Chloride, Blood 102.0 mmol/L (98-108); Creatinine, Blood 0.85 mg/dL (0.60-1.20); Globulin, Blood 4.0 g/dL (2.2-4.0); Glucose, Blood 166.0 mg/dL (70-99); Potassium, Blood 3.8 mmol/L (3.5-5.5); Sodium, Blood 136.0 mmol/L (136-145); Total Protein, Blood 6.5 g/dL (6.4-8.2)
[2025-07-17] MEDS ORDERED: HydrALAZINE HCl 20 MG / ML 1ML Vial IV ONE (07:00)
[2025-07-17] MEDS ORDERED: HydrALAZINE HCl 20 MG / ML 1ML Vial IV PRN (07:00)
[2025-07-17 08:47] VITALS: BP 135/85
[2025-07-17] MEDS ORDERED: Isosorbide Mononitrate 30 MG TABCR PO SCH (09:00)
[2025-07-17] MEDS ORDERED: FentaNYL Citrate 50 MCG/ML 2 ML Injection IV PRN (14:45)
[2025-07-17 14:50] VITALS: BP 93/64
--- NOTE | 2025-07-17 18:13 | NUR ---
SHIFT SUMMARY: NO EVENTS OR CHANGES WITH THE PATIENT THROUGHOUT THE SHIFT. HE STILL IS HAVING SEVERE PAIN. PAIN OUT OF PROPORTION. PATIENT CONTINUES TO HAVE MINIMAL MOBILITY DUE TO PAIN. HE WILL ALSO HAVE MOMENTS OF DROWSINESS/SOMNOLENCE/SNORING. PATIENT HAD A MOMENT TODAY WHERE HE SAT AT EDGE OF BED, URINATED ON THE FLOOR WITHOUT KNOWING HE STATES AND WAS NOT TOLERABLE OF STAFF MOVING HIM. WHEN STAFF ATTEMPT TO REPOSITION HE SHOUTED AND ELBOWED BOTH STAFF MEMBERS. SHORTLY AFTER HE FEEL ASLEEP, SNORING. THIS EVENT WAS REPORTED TO SIEBEL DEVELOPER AND DR. STACY. HE IS CURRENTLY IN BED, RESTING, REPSONSIVE TO VERBAL STIMULI, CALL LIGHT WITHIN REACH, BED ALARM ON, NO SIGNS OR SYMPTOMS OF DISTRESS, PLAN OF CARE ONGOING.
[2025-07-17 19:37] VITALS: BP 148/83
--- NOTE | 2025-07-18 05:19 | NUR ---
BOARDING ROOM FIXER SUMMARY VSS. HS ACCU [id number], INSULIN COVERAGE GIVEN. AT SHIFT COMMENCE SOMEWHAT IRRITABLE, VOICED ANGER WHEN STAFF WANTED TO ASSIST HIM TRYING TO GET OOB. HE VOIDED ON THE FLOOR, THEN WAS ASSISTED BACK IN BED. FLOOR CLEANED. BRIEF CHANGED. TOLERATED ONLY SOME OF HIS HS MEDS, REFUSED A FEW - SEE MAR FOR DETAILS. ASSISTED IN BED, THEN ABLE TO REPOSITION SELFIN BED AFTER THAT. SEEMED TO CALM DOWN, BECAME MORE COOPERATIVE AND HAS BEEN RESTING QUIETLY WITH FEW INTERRUPTIONS SINCE. HOB AT 40 DEGREES. CALL LIGHT IN REACH, RAILS UP X 2 AND BED IN LOW POSITION FOR SAFETY.
[2025-07-18 05:55] LABS: BASOPHILS ABSOLUTE AUTO 0.05 K/mm3 (0.00-0.23); BASOPHILS PERCENT AUTO 1 % (0-2); EOSINOPHILS ABSOLUTE AUTO 0.13 K/mm3 (0.00-0.68); EOSINOPHILS PERCENT AUTO 1 % (0-6); Hematocrit 39.3 % (37.0-53.0); Hemoglobin 12.8 g/dL (13.5-17.5); IMMATURE GRAN ABSOLUTE AUTO 0.03 K/mm3 (0.00-0.10); IMMATURE GRAN PERCENT AUTO 0 % (0-1); LYMPHOCYTES ABSOLUTE AUTO 1.56 K/mm3 (0.84-5.20); LYMPHOCYTES PERCENT AUTO 17 % (21-46); MONOCYTES ABSOLUTE AUTO 1.07 K/mm3 (0.16-1.47); MONOCYTES PERCENT AUTO 12 % (4-13); Mean Corpuscular HGB Conc 32.6 g/dL (31.5-36.5); Mean Corpuscular Volume 89 fL (80-100); NEUTROPHILS ABSOLUTE AUTO 6.27 K/mm3 (1.96-9.15); NEUTROPHILS PERCENT AUTO 69 % (41-73); NRBC ABSOLUTE 0.00 K/mm3 (0.00-0.02); NRBC Auto 0.0 /100 WBC (0.0-0.2); Platelet Count 213 K/mm3 (150-400); RDW Coefficient Variation 13.7 % (11.7-14.2); RDW Standard Deviation 45.1 fL (35.1-46.3)
[2025-07-18 06:12] LABS: Anion Gap 7.0 mmol/L (3-11); Blood Urea Nitrogen 33.0 mg/dL (8-24); CO2, Blood 31.0 mmol/L (21-32); Calcium, Blood 8.5 mg/dL (8.5-10.1); Chloride, Blood 101.0 mmol/L (98-108); Creatinine, Blood 1.13 mg/dL (0.60-1.20); Glucose, Blood 186.0 mg/dL (70-99); Potassium, Blood 4.1 mmol/L (3.5-5.5); Sodium, Blood 135.0 mmol/L (136-145)
[2025-07-18 07:29] VITALS: BP 174/91
--- NOTE | 2025-07-18 17:38 | NUR ---
SHIFT SUMMARY PT IS A/OX3-4, INTERMITTENT CONFUSION AND IMPULSIVE AT TIMES. PT IS UP WITH SBA WITH FWW TO THE BATHROOM. NO ACUTE CHANGES THROUGHOUT THIS SHIFT. MEDICATED WITH OXYCODONE PER DEC. PT IS PLEASANT AND COOPERATIVE WITH CARE.
[2025-07-18 20:04] VITALS: BP 117/65
[2025-07-19 02:40] VITALS: BP 152/64
--- NOTE | 2025-07-19 05:12 | NUR ---
PORTRAIT STUDIO PHOTOGRAPHER SUMMARY PT A&OX4, VSS, EXCEPT HTN. PT IS COOPERATIVE W/ CARE. ABLE TO VOICE NEEDS AND USE CALL LIGHTS APPROPRIATELY. PT HAS BEEN ASLEEP FOR THE GREATER HALF OF THE SHIFT. CHEST RISE/RESPIRATIONS NOTED. PT STATED THAT HE USES A CPAP AT HOME W/ 2L BLED IN. ORDER FOR CPAP OBTAINED W/ 2L BLED IN. UP INTERMITTENTLY TO USE RESTROOM W/ 1PA & FWW. PT STATES PAIN WELL MANAGED THIS SHIFT, BUT DOES VOICE SPASTICITY IN BILAT HANDS THAT HAS BEEN GOING ON FOR MONTHS NOW. BED RAILS UP X 2, BED IN LOWEST POSITION, BED WHEELS LOCKED, PERSONAL BELONGINGS AND CALL LIGHT WITHIN REACH FOR SAFETY.
[2025-07-19 06:18] LABS: BASOPHILS ABSOLUTE AUTO 0.10 K/mm3 (0.00-0.23); BASOPHILS PERCENT AUTO 1 % (0-2); EOSINOPHILS ABSOLUTE AUTO 0.42 K/mm3 (0.00-0.68); EOSINOPHILS PERCENT AUTO 4 % (0-6); Hematocrit 36.8 % (37.0-53.0); Hemoglobin 11.9 g/dL (13.5-17.5); IMMATURE GRAN ABSOLUTE AUTO 0.04 K/mm3 (0.00-0.10); IMMATURE GRAN PERCENT AUTO 0 % (0-1); LYMPHOCYTES ABSOLUTE AUTO 2.01 K/mm3 (0.84-5.20); LYMPHOCYTES PERCENT AUTO 21 % (21-46); MONOCYTES ABSOLUTE AUTO 1.32 K/mm3 (0.16-1.47); MONOCYTES PERCENT AUTO 14 % (4-13); Mean Corpuscular HGB Conc 32.3 g/dL (31.5-36.5); Mean Corpuscular Volume 91 fL (80-100); NEUTROPHILS ABSOLUTE AUTO 5.82 K/mm3 (1.96-9.15); NEUTROPHILS PERCENT AUTO 60 % (41-73); NRBC ABSOLUTE 0.00 K/mm3 (0.00-0.02); NRBC Auto 0.0 /100 WBC (0.0-0.2); Platelet Count 227 K/mm3 (150-400); RDW Coefficient Variation 13.7 % (11.7-14.2); RDW Standard Deviation 45.7 fL (35.1-46.3)
[2025-07-19 06:35] LABS: Anion Gap 7.0 mmol/L (3-11); Blood Urea Nitrogen 36.0 mg/dL (8-24); CO2, Blood 32.0 mmol/L (21-32); Calcium, Blood 8.3 mg/dL (8.5-10.1); Chloride, Blood 99.0 mmol/L (98-108); Creatinine, Blood 1.24 mg/dL (0.60-1.20); Glucose, Blood 148.0 mg/dL (70-99); Potassium, Blood 3.9 mmol/L (3.5-5.5); Sodium, Blood 134.0 mmol/L (136-145)
[2025-07-19 07:08] VITALS: BP 142/78
[2025-07-19] MEDS ORDERED: NS 1,000 ML IV SCH (08:00)
[2025-07-19 16:08] VITALS: BP 137/77
[2025-07-19 17:42] LABS: Anion Gap 7.0 mmol/L (3-11); Blood Urea Nitrogen 32.0 mg/dL (8-24); CO2, Blood 33.0 mmol/L (21-32); Calcium, Blood 8.8 mg/dL (8.5-10.1); Chloride, Blood 98.0 mmol/L (98-108); Creatinine, Blood 1.25 mg/dL (0.60-1.20); Glucose, Blood 220.0 mg/dL (70-99); Potassium, Blood 4.0 mmol/L (3.5-5.5); Sodium, Blood 134.0 mmol/L (136-145)
--- NOTE | 2025-07-19 18:42 | NUR ---
SHIFT SUMMARY PT IS A/OX4. SBA WITH FWW TO THE BATHROOM. NO ACUTE CHANGES THROUGHOUT THIS SHIFT. PT MEDICATED WITH OXYCODONE PER MAR FOR PAIN TO THE LLE/HIP. ON 2L NC TO MAINTAIN SATS >92% ON CONT PULSE OX. PT IS PLEASANT AND COOPERATIVE WITH CARE AND CALLS APPROPRIATELY USING THE CALL LIGHT.
[2025-07-19 19:52] VITALS: BP 152/69
[2025-07-19] MEDS ORDERED: Insulin Glargine 100 Unit/ML 3 ML SYR SC ONE (21:55)
[2025-07-20 03:19] VITALS: BP 135/63
--- NOTE | 2025-07-20 06:09 | NUR ---
SUMMARY: PT A/OX4, ENDORSES NEEDS AND IS UP W/SBA AND FWW TO TOILET. HE'S PLEASANT AND COOPERATIVE W/CARE AND AWARE OF LIMITATIONS. PT REMAINS PAINFUL TO L.HIP/SIDE S/P FALL PRIOR TO ADMIT W/HEMATOMAS NOTED TO BE HEALING, PRN OXYCODONE RECEIVED FOR TOLERABLE RELIEF. CBG AT WAS 168 AND PROVIDER (WARREN ROWELL) INSTRUCTED TO GIVE 50 UNITS LANTUS INSTEAD OF SCHEDULED 60 UNITS FOR PREVENTION OF POSSIBLE HYPOGLYCEMIA. SNACK WAS ALSO PROVIDED AT ID AND CBG IS STABLE. HE REMAINS ON 2-3L O2 VIA NC WA AND HAS O2 BLEED VIA CPAP AT HS. SPO2 IS WNL ON CONT BIOX AND RT PROVIDED VENTOLIN PRN PER PT REQUEST. SCATTERED COARSE LS AUSCULTATED AND PT ENCOURAGED TO USE FLUTTER VALVE. X1L IVF WERE COMPLETED THEN IV SL'D. NO ACUTE CHANGES, VSS/AFEBRILE. WILL REPORT TO DAY RN.
[2025-07-20 06:40] LABS: Anion Gap 7.0 mmol/L (3-11); Blood Urea Nitrogen 27.0 mg/dL (8-24); CO2, Blood 30.0 mmol/L (21-32); Calcium, Blood 8.6 mg/dL (8.5-10.1); Chloride, Blood 102.0 mmol/L (98-108); Creatinine, Blood 1.02 mg/dL (0.60-1.20); Glucose, Blood 135.0 mg/dL (70-99); Potassium, Blood 4.0 mmol/L (3.5-5.5); Sodium, Blood 135.0 mmol/L (136-145)
[2025-07-20 07:06] VITALS: BP 144/76
[2025-07-20 15:34] VITALS: BP 146/70
--- NOTE | 2025-07-20 16:02 | NUR ---
SHIFT SUMMARY PT AOX4, COOPERATIVE, ABLE TO MAKE NEEDS KNOWN. PT IS SBA TO BATHROOM FOR VOIDING, BED ALARM ACTIVE DUE TO GETTING OOB WITHOUT ASSISTANCE. TOLERATING PO INTAKE AND MEDICATIONS. LITTLE COMPLAINTS OF PAIN THIS SHIFT. ON 2-3L O2 CURRENLTY. HAS HABIT OF TAKING O2 OFF DURING ACTIVITY. REINFORCING TO WEAR O2 DURING ACTIVITY. BED IN LOWEST POSITION, CALL LIGHT WITHIN REACH.
[2025-07-20 19:26] VITALS: BP 137/60
[2025-07-21 04:40] VITALS: BP 157/72
--- NOTE | 2025-07-21 05:33 | NUR ---
SHIFT SUMMARY PATIENT A/OX4. PLEASANT AND COOPERATIVE WITH CARE. CALLED ORACLE SOA DEVELOPER DR KELLEY AT APPROX 2320 TO REPORT THAT PATIENT PULSE KEPT DROPPING INTO THE 40'S THROUGHOUT THE SHIFT W/ NO SS OF CHEST PAIN OR SOB. ALL OTHER VITAL SIGNS STABLE. STATED NO NEW ORDERS AT THAT TIME AND TO CONTINUE MONITORING PATIENT. CONT PULS OX IN PLACE. PATIENT UP WITH SBA AND FWW TO BATHROOM. VOIDING WELL. PATIENT COMPLIANT WITH CPAP TONIGHT, OXYGEN SATURATION ABOVE 90%. NO PAIN REPORTED THROUGHOUT SHIFT. UTILIZING CALL LIGHT APPROPRIATELY. BED IN LOWEST POSITION. WILL REPORT TO DAY SHIFT RN.
[2025-07-21 07:16] VITALS: BP 158/70
[2025-07-21 08:10] VITALS: BP 184/76
[2025-07-21 09:02] LABS: BASOPHILS ABSOLUTE AUTO 0.05 K/mm3 (0.00-0.23); BASOPHILS PERCENT AUTO 1 % (0-2); EOSINOPHILS ABSOLUTE AUTO 0.25 K/mm3 (0.00-0.68); EOSINOPHILS PERCENT AUTO 3 % (0-6); Hematocrit 39.4 % (37.0-53.0); Hemoglobin 13.0 g/dL (13.5-17.5); IMMATURE GRAN ABSOLUTE AUTO 0.03 K/mm3 (0.00-0.10); IMMATURE GRAN PERCENT AUTO 0 % (0-1); LYMPHOCYTES ABSOLUTE AUTO 1.54 K/mm3 (0.84-5.20); LYMPHOCYTES PERCENT AUTO 18 % (21-46); MONOCYTES ABSOLUTE AUTO 0.97 K/mm3 (0.16-1.47); MONOCYTES PERCENT AUTO 12 % (4-13); Mean Corpuscular HGB Conc 33.0 g/dL (31.5-36.5); Mean Corpuscular Volume 89 fL (80-100); NEUTROPHILS ABSOLUTE AUTO 5.53 K/mm3 (1.96-9.15); NEUTROPHILS PERCENT AUTO 66 % (41-73); NRBC ABSOLUTE 0.00 K/mm3 (0.00-0.02); NRBC Auto 0.0 /100 WBC (0.0-0.2); Platelet Count 258 K/mm3 (150-400); RDW Coefficient Variation 13.5 % (11.7-14.2); RDW Standard Deviation 44.1 fL (35.1-46.3)
[2025-07-21 09:04] LABS: pH Blood Venous 7.41 (7.34-7.37)
[2025-07-21 09:31] LABS: Alanine Aminotransfer (ALT/SGP 17.0 U/L (12-78); Albumin, Blood 2.4 g/dL (3.4-5.0); Albumin/Globulin Ratio 0.6 (0.8-1.8); Anion Gap 7.0 mmol/L (3-11); Aspartate Aminotrans (AST/SGOT 14.0 U/L (12-37); Bilirubin, Total 0.7 mg/dL (0.1-1.0); Blood Urea Nitrogen 24.0 mg/dL (8-24); CO2, Blood 33.0 mmol/L (21-32); Calcium, Blood 9.1 mg/dL (8.5-10.1); Chloride, Blood 100.0 mmol/L (98-108); Creatinine, Blood 1.03 mg/dL (0.60-1.20); Globulin, Blood 4.3 g/dL (2.2-4.0); Glucose, Blood 109.0 mg/dL (70-99); Potassium, Blood 3.8 mmol/L (3.5-5.5); Sodium, Blood 136.0 mmol/L (136-145); Total Protein, Blood 6.7 g/dL (6.4-8.2)
[2025-07-21] MEDS ORDERED: Magnesium Hydroxide Conc 10 ML UDC PO PRN (09:50)
[2025-07-21 11:18] VITALS: BP 112/68
[2025-07-21] MEDS ORDERED: BACLOFEN5 M1 PO (14:51)
[2025-07-21] MEDS ORDERED: HUMULIN R100 UNIT/2 (14:52)
[2025-07-21] MEDS ORDERED: SENN187 PO (14:53)
[2025-07-21] MEDS ORDERED: DULCOLAX400 MG/5 M PO (14:53)
[2025-07-21] MEDS ORDERED: OXYC10ER PO (14:54)
[2025-07-21] MEDS ORDERED: TENO300 PO (14:54)
[2025-07-21 15:06] VITALS: BP 146/72
--- NOTE | 2025-07-21 17:15 | NUR ---
SHIFT SUMMARY/DISCHARGE PT AOX4, COOPERATIVE, ABLE TO MAKE NEEDS KNOWN. PT IS SBA USING FWW TO BATHROOM TO VOID. PT USES 2-3L O2 DURING ACTIVITY. USES CPAP AT NIGHT BUT NONCOMPLIANT. THIS AM, PT DID HAVE ACUTE EPISODE OF CONFUSION AND UNRESPONSIVENESS, AWARE AND WAS PRESENT. TOLERATING MEDICATIONS. PT WAS TRANSPORTED TO [facility] VIA TRANSFERR. DC PAPERWORK AND HARD SCRIPTS WENT WITH PT. IV DC'D, TELE DC'D. ALL BELONGINGS WENT WITH PT. THIS RN GAVE REPORT TO ALEC OF [facility].
== END 2025-07-21 17:00 ==
LOC: ER 00:57 → MEDS 00:58
PROVIDERS: Student in an Organized Health Care Education/Training Program; ADMIT Internal Medicine
DX: S30.0XXA Contusion of lower back and pelvis, initial encounter (principal); W18.30XA Fall on same level, unspecified, initial encounter; I11.0 Hypertensive heart disease with heart failure; I50.42 Chronic combined systolic (congestive) and diastolic (congestive) heart failure; I25.10 Atherosclerotic heart disease of native coronary artery without angina pectoris; I25.2 Old myocardial infarction; J44.9 Chronic obstructive pulmonary disease, unspecified; J96.11 Chronic respiratory failure with hypoxia; E11.9 Type 2 diabetes mellitus without complications; E78.00 Pure hypercholesterolemia, unspecified; I48.91 Unspecified atrial fibrillation; N17.9 Acute kidney failure, unspecified; B18.1 Chronic viral hepatitis B without delta-agent; K74.60 Unspecified cirrhosis of liver; Z66 Do not resuscitate; Z87.891 Personal history of nicotine dependence; Z79.01 Long term (current) use of anticoagulants; Z79.4 Long term (current) use of insulin; Z79.899 Other long term (current) drug therapy; Z88.1 Allergy status to other antibiotic agents; Z88.2 Allergy status to sulfonamides; Z88.5 Allergy status to narcotic agent; Z88.6 Allergy status to analgesic agent; Z88.8 Allergy status to other drugs, medicaments and biological substances; Z95.5 Presence of coronary angioplasty implant and graft; Z86.73 Personal history of transient ischemic attack (TIA), and cerebral infarction without residual deficits
CPT/HCPCS: 36415; 71045; 74176; 76882; 80048; 80053; 82803; 82947; 83880; 85025; 93005; 93010; 94640; 94660; 94664; 94760; 94762; 96374; 96375; 97110; 97161; 97165; 97530; 97535; 99285-25; A9270; G0378; J0360; J1171; J1815; J2270; J2405; J3010